=== PATIENT | male | born 1940 | race Two or more races ===

== ENCOUNTER 2016-11-21 08:37 | Observation (INO) | payer OTHER ==
[2016-11-21 08:44] VITALS: BMI 37.1
--- NOTE | 2016-11-21 09:40 | PDOC ---
History of Present Illness - General History Source: Patient Exam Limitations: No Limitations <Jerry Horn - Last Filed: 11/21/16 11:04> - General History Source: Patient, Old Records Exam Limitations: No Limitations - History of Present Illness Initial Comments: 11/21/16 10:03 The patient is a 76 year old male presenting with his family, with a significant past medical history of HTN, HLD, NM, CAD chronic hep C, CHF EF of 40-45% and small bowel obstruction, who presents to the emergency department with rectal bleeding onset 2 days ago. He describes his rectal bleeding as bright red mixed with stool. He notes that he has had multiple episodes throughout the last couple of days. He denies any abdominal pain. The patient was seen in 2014 for the same complication and was referred to a GI to get a colonoscopy that showed diverticula. He states that he takes Aspirin 81 mg and Plavix 75 mg but has not taken his medication today. The patient denies chest pain, shortness of breath, headache and dizziness. Denies fever, chills, nausea, vomit, diarrhea and constipation. Denies dysuria, frequency, urgency and hematuria. Allergies: Sulfa Past surgical history: CABG x 3, small bowel obstruction Social history: No alcohol, tobacco or drug use reported <Ralf Silverman - Last Filed: 11/21/16 12:23> - General Chief Complaint: Rectal Bleed Stated Complaint: RECTAL BLEED Time Seen by Provider: 11/21/16 09:17 Past History - Past Medical History Anemia: No Asthma: No Cancer: No Cardiac Disorders: Yes (cardiac cath and stent placement at [facility] ) CVA: No COPD: No Dementia: No Diabetes: No GI Disorders: No Disorders: No HTN: Yes Hypercholesterolemia: Yes (hperlipedemia) Liver Disease: No Seizures: No Thyroid Disease: No - Surgical History Abdominal Surgery: Yes (sbo) Appendectomy: No Cardiac Surgery: Yes (cabg) Cholecystectomy: No Lung Surgery: No Neurologic Surgery: No Orthopedic Surgery: No - Psycho/Social/Smoking Cessation Hx Anxiety: No Suicidal Ideation: No Smoking Status: Yes Smoking History: Never smoked Have you smoked in the past 12 months: No Number of Cigarettes Smoked Daily: 0 If you are a former smoker, when did you quit?: 2013 Cigars Per Day: 0 Information on smoking cessation initiated: No Hx Alcohol Use: No Drug/Substance Use Hx: No Substance Use Type: None Hx Substance Use Treatment: No <Jerry Horn - Last Filed: 11/21/16 11:04> <Ralf Silverman - Last Filed: 11/21/16 12:23> - Past Medical History Allergies/Adverse Reactions: Allergies Allergy/AdvReac Type Severity Reaction Status Date / Time Sulfa (Sulfonamide Allergy Verified 11/21/16 08:41 Antibiotics) [Sulfa(Sulfonamide Antibiotics)] Home Medications: Ambulatory Orders Aspirin Coated [Ecotrin -] 81 mg PO DAILY 06/08/12 Clopidogrel Bisulfate [Plavix -] 75 mg PO DAILY 06/08/12 Furosemide [Lasix -] 40 mg PO DAILY 06/08/12 Simvastatin [Zocor -] 20 mg PO DAILY 06/08/12 Isosorbide Mononitrate 120 mg PO DAILY 02/02/13 Metoprolol Succinate [Toprol XL] 200 mg PO DAILY 02/02/13 Trazodone HCl 50 mg PO HS 02/02/13 Valsartan [Diovan] 320 mg PO DAILY 02/02/13 Spironolactone 25 mg PO DAILY 11/21/16 Review of Systems - Review of Systems Able to Perform ROS?: Yes Comments:: 11/21/16 10:03 GENERAL/CONSTITUTIONAL: No fever or chills. No weakness. HEAD, EYES, EARS, NOSE AND THROAT: No change in vision. No ear pain or discharge. No sore throat. CARDIOVASCULAR: No chest pain or shortness of breath RESPIRATORY: No cough, wheezing, or hemoptysis. GASTROINTESTINAL: (+) Rectal bleeding. No nausea, vomiting, diarrhea or constipation. GENITOURINARY: No dysuria, frequency, or change in urination. MUSCULOSKELETAL: No joint or muscle swelling or pain. No neck or back pain. SKIN: No rash NEUROLOGIC: No headache, vertigo, loss of consciousness, or change in strength/ sensation. ENDOCRINE: No increased thirst. No abnormal weight change HEMATOLOGIC/LYMPHATIC: No anemia, easy bleeding, or history of blood clots. ALLERGIC/IMMUNOLOGIC: No hives or skin allergy. <Ralf Silverman - Last Filed: 11/21/16 12:23> *Physical Exam - Vital Signs Last Vital Signs Temp Pulse Resp BP Pulse Ox 98 F 72 18 136/79 100 11/21/16 08:42 11/21/16 08:42 11/21/16 08:42 11/21/16 08:42 11/21/16 08:42 <Jerry Horn - Last Filed: 11/21/16 11:04> - Vital Signs Last Vital Signs Temp Pulse Resp BP Pulse Ox 98 F 72 18 136/79 100 11/21/16 08:42 11/21/16 08:42 11/21/16 08:42 11/21/16 08:42 11/21/16 08:42 - Physical Exam Comments: 11/21/16 10:03 GENERAL: (+) Obese. Awake, alert, and fully oriented, in no acute distress HEAD: No signs of trauma, normocephalic, atraumatic EYES: PERRLA, EOMI, sclera anicteric, conjunctiva clear ENT: Auricles normal inspection, hearing grossly normal, nares patent, oropharynx clear without exudates. Moist mucosa NECK: Normal ROM, supple, no lymphadenopathy, JVD, or masses LUNGS: No distress, speaks full sentences, clear to auscultation bilaterally HEART: Regular rate and rhythm, normal S1 and S2, no murmurs, rubs or gallops, peripheral pulses normal and equal bilaterally. ABDOMEN: Soft, nontender, normoactive bowel sounds. No guarding, no rebound. No masses EXTREMITIES: Normal inspection, Normal range of motion, no edema. No clubbing or cyanosis. NEUROLOGICAL: Cranial nerves II through XII grossly intact. Normal speech, normal gait, no focal sensorimotor deficits SKIN: Warm, Dry, normal turgor, no rashes or lesions noted. RECTAL EXAM: (+) Blood in rectum. No hemrrhoids or tares noted. <Ralf Silverman - Last Filed: 11/21/16 12:23> Heart Score/ECG Review #1 ECG reviewed & interpreted by me at: 09:45 11/21/16 10:16 NSR 69, RBBB, Q wave III, poor R wave progression, RVH, no std/denise, QTC 460 msec <Jerry Horn - Last Filed: 11/21/16 11:04> ED Treatment Course - LABORATORY CBC & Chemistry Diagram: 11/21/16 09:39 11/21/16 09:39 <JustinaJerry - Last Filed: 11/21/16 11:04> - LABORATORY CBC & Chemistry Diagram: 11/21/16 09:39 11/21/16 09:39 - ADDITIONAL ORDERS Additional order review: Laboratory Results 11/21/16 09:39 Stool Occult Blood Positive - RADIOLOGY Radiograph Interpretation: 11/21/16 10:14 Chest X-Ray Reviewed by: Dr. Omkar Neves Impression: No evidence of active pulmonary disease. <Ralf Silverman - Last Filed: 11/21/16 12:23> Medical Decision Making - Medical Decision Making 11/21/16 09:37 A portion of this note was documented by scribe services under my direction. I have reviewed the details of the note, within reason, and agree with the documentation with the following case summary and management plan written by me. Patient treated in the ED. Nursing notes are reviewed and incorporated into the medical decision-making. Vital signs reviewed. Peripheral IV access obtained by the nurse, laboratory studies are drawn and sent, reviewed and interpreted by myself. Vital Signs Temp Pulse Resp BP Pulse Ox 98 F 72 18 136/79 100 11/21/16 08:42 11/21/16 08:42 11/21/16 08:42 11/21/16 08:42 11/21/16 08:42 76-year-old male with past medical history of hypertension, coronary disease, NM , chronic hep C, hyperlipidemia, CHF with EF of 40-45%, history of diverticula confirmed with an colonoscopy report at the [facility] in 2014 presents with red blood per rectum. Patient's taken baby aspirin and Plavix. 2 days ago, noticed that he was having approximately 2 episodes of red blood painless bleeding. Denies any lightheadedness or chest pain. However, continue have persistent bleeding. Did not take his medications today. Came into the ED for further evaluation. Patient's abdomen is nontender and the patient rectal exam demonstrates no Hemorrhoids. I suspect that this is likely diverticular bleed. We'll obtain a CBC to check for hematocrit and the patient should be considered for admission for potentially sigmoidoscopy or colonoscopy for diverticular bleeding given multiple medical problems. 11/21/16 11:04 CBC, BMP 11/21/16 09:39 11/21/16 09:39 CMP Sodium 141 mmol/L (136-145) 11/21/16 09:39 Potassium 4.7 mmol/L (3.5-5.1) D 11/21/16 09:39 Chloride 102 mmol/L (98-107) 11/21/16 09:39 Carbon Dioxide 34 mmol/L (21-32) H 11/21/16 09:39 Anion Gap 5 (8-16) L 11/21/16 09:39 BUN 31 mg/dL (7-18) H D 11/21/16 09:39 Creatinine 0.8 mg/dL (0.7-1.3) 11/21/16 09:39 Creat Clearance w eGFR > 60 (>60) 11/21/16 09:39 Random Glucose 93 mg/dL (74-106) 11/21/16 09:39 Calcium 8.7 mg/dL (8.5-10.1) 11/21/16 09:39 Total Bilirubin 0.5 mg/dL (0.2-1.0) D 11/21/16 09:39 AST 73 U/L (15-37) H D 11/21/16 09:39 ALT 60 U/L (12-78) D 11/21/16 09:39 Alkaline Phosphatase 120 U/L (45-117) H 11/21/16 09:39 Creatine Kinase 110 IU/L (39-308) 11/21/16 09:39 Troponin I < 0.02 ng/ml (0.00-0.05) 11/21/16 09:39 Total Protein 7.9 g/dl (6.4-8.2) 11/21/16 09:39 Albumin 3.1 g/dl (3.4-5.0) L 11/21/16 09:39 INR, PTT INR 1.03 (0.82-1.09) 11/21/16 09:39 Stool occult positive. Pt remains stable. Case discussed with Dr. Anderson. She accepts patient for admission for diverticular bleed. Requests GI Dr. Garcia. Case discussed in detail with admitting physician including history, physical exam and ancillary studies. Admitting physician has assumed care for the patient, will follow all pending diagnostics and will complete the evaluation and treatment. <Jerry Horn - Last Filed: 11/21/16 11:04> - Medical Decision Making 11/21/16 12:22 Dr. Macario was consulted regarding the patient at 12:20pm [phone] <Ralf Silverman - Last Filed: 11/21/16 12:23> *DC/Admit/Observation/Transfer - Discharge Dispostion Admit: Yes <Jerry Horn - Last Filed: 11/21/16 11:04> - Attestations Scribe Attestion: 11/21/16 10:04 Documentation prepared by Ralf Silverman, acting as medical record librarians teacher for Jerry Horn MD <Ralf Silverman - Last Filed: 11/21/16 12:23> Diagnosis at time of Disposition: Lower gastrointestinal hemorrhage
[2016-11-21 10:02] LABS: BASOPHIL 0.3 % (0-2.0); EOSINOPHIL 1.5 % (0-4.5); MCH 31.8 pg (25.7-33.7); MCHC 32.6 g/dl (32.0-35.9); MEAN CELL VOLUME 97.5 fl (80-96); MEAN PLT VOLUME 9.5 fl (7.5-11.1); NEUTROPHILS 58.2 % (42.8-82.8); PLATELET COUNT 183 K/MM3 (134-434); RDW 14.2 % (11.9-15.9)
[2016-11-21 10:12] LABS: ALBUMIN 3.1 g/dl (3.4-5.0); ALK PHOS 120 U/L (45-117); ANION GAP 5 (8-16); BILIRUBIN,TOTAL 0.5 mg/dL (0.2-1.0); CALCIUM 8.7 mg/dL (8.5-10.1); CO2 34 mmol/L (21-32); COCKROFT - GAULT 117.72; CREATININE 0.8 mg/dL (0.7-1.3); GLUCOSE,RANDOM 93 mg/dL (74-106); SGPT/ALT 60 U/L (12-78); TOT PROT 7.9 g/dl (6.4-8.2); TROPONIN I < 0.02 ng/ml (0.00-0.05)
[2016-11-21 10:15] LABS: INR 1.03 (0.82-1.09); PROTHROMBIN TIME (PATIENT) 11.3 SEC (9.98-11.88)
[2016-11-21 10:19] LABS: SGOT/AST 73 U/L (15-37)
--- NOTE | 2016-11-21 10:26 | EKG ---
Test Reason : Blood Pressure : / mmHG Vent. Rate : 069 BPM Atrial Rate : 070 BPM P-R Int : 188 ms QRS Dur : 164 ms QT Int : 430 ms P-R-T Axes : -02 242 052 degrees QTc Int : 460 ms NORMAL SINUS RHYTHM WITH PREMATURE VENTRICULAR OR ABERRANTLY CONDUCTED COMPLEXES RIGHT BUNDLE BRANCH BLOCK INFERIOR INFARCT (CITED ON OR BEFORE 28-SEP-2010) ANTEROLATERAL INFARCT (CITED ON OR BEFORE 28-SEP-2010) ABNORMAL ECG Confirmed by MD NONA, ZHEN ([id number]) on 11/21/2016 10:26:10 AM Referred By: Confirmed By:ZHEN CASTELLANO MD
--- NOTE | 2016-11-21 15:21 | CON.GI ---
Consult Consult Specialty:: GI Referred by:: Dr. 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 Mr. Ruth described the bleeding as bright red, starting at 11:45 monday morning. It was mixed in with his stool. This happened twice on monday. This again occurred 5am Monday morning and there was a clot passed as well as well as dark stool. His last bloodly BM was this morning and was bright red. He had a bleed in 2014 that was suspected to be diverticular in nature He alluded to undergoing EGD and colonoscopy at that time. This was performed by his macerator operator Dr. Abelardo Garcia [phone]. He brought the colonoscopy report that was alluded to in the ER note however Mr. Ruth explains to me that the person who took him to [facility] took it back with her. Diverticulosis was described. There was no associated abdominal pain, nausea, vomiting, dysphagia, odynophagia, diarrhea, fevers/chills. He has been maintained on Aspirin and Plavix since 2013 when he underwent placement of a drug eluting stent of the circumflex artery. He had a CABG in 2001 prior to [place]. The report he provided from his stent placement advised [id number] indefinitely and Plavix for 1 year or longer as indicated. There has been no active bleeding in the ER - Past Medical History Cardio/Vascular: Yes: CAD, CHF, HTN, Hyperlipdemia Hepatobiliary: Yes: Hepatitis B (describes having a liver biopsy in the past) Additional Medical History: ? Seizure d/o - Past Surgical History Past Surgical History: Yes: CABG, Upper Endoscopy (years ago. results n/a). No : Colonoscopy Additional Surgical History: ? 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 Place of : Other ([place], came to [place] 21) History of Recent Travel: No Home Medications - Allergies Allergies/Adverse Reactions: Allergies Allergy/AdvReac Type Severity Reaction Status Date / Time Sulfa (Sulfonamide Allergy Verified 11/21/16 08:41 Antibiotics) [Sulfa(Sulfonamide Antibiotics)] - Home Medications Home Medications: Ambulatory Orders Aspirin Coated [Ecotrin -] 81 mg PO DAILY 06/08/12 Clopidogrel Bisulfate [Plavix -] 75 mg PO DAILY 06/08/12 Furosemide [Lasix -] 40 mg PO DAILY 06/08/12 Simvastatin [Zocor -] 20 mg PO DAILY 06/08/12 Isosorbide Mononitrate 120 mg PO DAILY 02/02/13 Metoprolol Succinate [Toprol XL] 200 mg PO DAILY 02/02/13 Trazodone HCl 50 mg PO HS 02/02/13 Valsartan [Diovan] 320 mg PO DAILY 02/02/13 Spironolactone 25 mg PO DAILY 11/21/16 Family Disease History - Family Disease History Family Disease History: Other: Father ( natural causes), Mother ( natural causes), Brother (2 brothers, healthy), Sister (1 sister, healthy) Other Family History: No children. No family history of colorectal cancer or other GI malignancy Review of Systems - Review of Systems Constitutional: denies: Diaphoresis, Fever Cardiovascular: denies: Chest Pain Respiratory: denies: SOB Gastrointestinal: reports: Rectal Bleeding. denies: Constipation, Diarrhea, Melena, Vomiting, Vomiting Blood Physical Exam-GI Vital Signs: Vital Signs Temperature 98 F 11/21/16 08:42 Pulse Rate 78 11/21/16 12:42 Respiratory Rate 22 11/21/16 12:42 Blood Pressure 105/63 11/21/16 12:42 O2 Sat by Pulse Oximetry (%) 96 11/21/16 12:42 Constitutional: Yes: Calm Eyes: No: Sclera Icterus Cardiovascular: Yes: Regular Rate and Rhythm. No: Murmur Respiratory: Yes: CTA Bilaterally Gastrointestinal Inspection: Yes: Other (? growth at umbilicus (he says noticing this only for a few days)). No: Distention ...Auscultate: Yes: Normoactive Bowel Sounds ...Palpate: No: Hepatomegaly, Splenomegaly, Tenderness ...Percussion: No: Tympanitic ...Rectal Exam: Yes: Other (No external lesions, no masses, scant red blood mixed with stool) Edema: Yes Edema: LLE: Trace, RLE: Trace Neurological: Yes: Alert, Oriented Labs: INR, PTT INR 1.03 (0.82-1.09) 11/21/16 09:39 Problem List - Problems (1) Lower gastrointestinal hemorrhage Assessment/Plan: By history, diverticular hemorrhage would need to be considered in differential with his bleeding being potentiated by his continued dual antiplatelet therapy. This is his second episode of GI bleeding on ASA/Plavix. It is unclear, however, consideration could be given in the setting of recurrent GI bleeding to have Plavix discontinued however I would defer to cardiology regarding this. Would monitor for now. If continued bleeding persists, then further work-up would need to be considered including repeat EGD/Colonoscopy, surgical evaluation and if profuse bleeding CTA. We discussed potential risks of the procedure like but not limited to bleeding, perforation requiring surgery to repair, infection and sedation medication effects all of which could be potentially life threatening. Advised admitting to a monitored setting for now (if worsening bleeding transfer to ICU), clear liquids, repeat CBC 8pm tonight and in AM. I put a call out to Mr. Ruth's macerator operator Dr. Garcia to discuss his case and previous GI bleed episode further Code(s): K92.2 - GASTROINTESTINAL HEMORRHAGE, UNSPECIFIED
--- NOTE | 2016-11-21 15:42 | CON.CARD ---
Consult Consult Specialty:: Cardiology Referred by:: Bety Anderson MD Reason for Consultation:: Pre-procedural cardiovascular evaluation - History of Present Illness Chief Complaint: Rectal bleeding History of Present Illness: The patient is a 76 year old male with significant past medical history of HTN, HLD, [place], CAD s/p CABGx3 in 2001, ELÍAS LCx 2013, chronic hep C, systolic dysfunction EF of 40-45%, diverticulosis and small bowel obstruction, presented to the emergency department with rectal bleeding for 2 days. He describes his rectal bleeding as bright red mixed with stool. He notes that he has had multiple episodes throughout the last couple of days. He denies any abdominal pain. The patient was seen in 2014 for the same complication and was referred to a GI to get a colonoscopy that showed diverticula. He states that he takes Aspirin 81 mg and Plavix 75 mg but has not taken his medication today. The patient denies chest pain, shortness of breath, dizziness or true syncope, orthopnea, PND or LE edema. Allergies: Sulfa Past surgical history: CABG x 3, small bowel obstruction Social history: No alcohol, tobacco or drug use reported - History Source History Provided By: Medical Record Limitations to Obtaining History: Language Barrier - Past Medical History Cardio/Vascular: Yes: CAD, CHF, HTN, Hyperlipdemia - Past Surgical History Past Surgical History: Yes: CABG, Upper Endoscopy (years ago. results n/a). No : Colonoscopy - Alcohol/Substance Use Hx Alcohol Use: No - Smoking History Smoking history: Never smoked Have you smoked in the past 12 months: No Aproximately how many cigarettes per day: 0 If you are a former smoker, when did you quit?: 2013 Home Medications - Allergies Allergies/Adverse Reactions: Allergies Allergy/AdvReac Type Severity Reaction Status Date / Time Sulfa (Sulfonamide Allergy Verified 11/21/16 08:41 Antibiotics) [Sulfa(Sulfonamide Antibiotics)] - Home Medications Home Medications: Ambulatory Orders Aspirin Coated [Ecotrin -] 81 mg PO DAILY 06/08/12 Clopidogrel Bisulfate [Plavix -] 75 mg PO DAILY 06/08/12 Furosemide [Lasix -] 40 mg PO DAILY 06/08/12 Simvastatin [Zocor -] 20 mg PO DAILY 06/08/12 Isosorbide Mononitrate 120 mg PO DAILY 02/02/13 Metoprolol Succinate [Toprol XL] 200 mg PO DAILY 02/02/13 Trazodone HCl 50 mg PO HS 02/02/13 Valsartan [Diovan] 320 mg PO DAILY 02/02/13 Spironolactone 25 mg PO DAILY 11/21/16 Vital Signs: Vital Signs Temperature 98 F 11/21/16 08:42 Pulse Rate 78 11/21/16 12:42 Respiratory Rate 22 11/21/16 12:42 Blood Pressure 105/63 11/21/16 12:42 O2 Sat by Pulse Oximetry (%) 96 11/21/16 12:42 - Other Data Labs, Other Data: INR, PTT INR 1.03 (0.82-1.09) 11/21/16 09:39 NSR @ 69 RBBB, PVC Ejection Fraction %: LVEF > or = 40 % Imaging - Results Chest X-ray: Report Reviewed (NAD) Problem List - Problems (1) Lower gastrointestinal hemorrhage Code(s): K92.2 - GASTROINTESTINAL HEMORRHAGE, UNSPECIFIED (2) CAD (coronary artery disease) Code(s): I25.10 - ATHSCL HEART DISEASE OF [place] CORONARY ARTERY W/O ANG PCTRS Qualifiers: Coronary Disease-Associated Artery/Lesion type: [place] artery [place] vs. transplanted heart: [place] heart Associated angina: without angina Qualified Code(s): I25.10 - Atherosclerotic heart disease of [place] coronary artery without angina pectoris (3) HTN (hypertension) Code(s): I10 - ESSENTIAL (PRIMARY) HYPERTENSION Qualifiers: Hypertension type: essential hypertension Qualified Code(s): I10 - Essential (primary) hypertension (4) Status post coronary artery stent placement Code(s): Z95.5 - PRESENCE OF CORONARY ANGIOPLASTY IMPLANT AND GRAFT (5) Status post coronary artery bypass graft Code(s): Z95.1 - PRESENCE OF AORTOCORONARY BYPASS GRAFT (6) Hyperlipidemia Code(s): E78.5 - HYPERLIPIDEMIA, UNSPECIFIED Qualifiers: Hyperlipidemia type: pure hypercholesterolemia Qualified Code(s): E78.00 - Pure hypercholesterolemia, unspecified; E78.0 - Pure hypercholesterolemia (7) Diastolic dysfunction without heart failure Code(s): I51.9 - HEART DISEASE, UNSPECIFIED (8) Pre-procedural cardiovascular examination Code(s): Z01.810 - ENCOUNTER FOR PREPROCEDURAL CARDIOVASCULAR EXAMINATION Assessment/Plan 1. Pre-procedural cardiovascular evaluation 2. Hematochezia with underlying h/o diverticulosis 3. CAD s/p CABG, ELÍAS, angina pectoris 4. HTN/HCVD 5. Hyperlipidemia 6. Diastolic dysfunction P:1. Hold ASA and Plavix pending hemostasis, then resume single antiplatelet agent. Continue Toprol XL, Diovan, Aldactone, Imdur, Lasix and Zocor 20 qhs as hemodynamics tolerate 2. Monitor Hgb and transfuse as needed 3. May proceed with endoscopy if clinically warranted from cardiovascular standpoint without further imaging given absence of sxs of acute coronary syndrome, decompensated CHF or malignant arrhythmia 4. Thank you for consultative opportunity, will follow-up with Dr. Marr [phone] for cardiology f/u upon d/c.
--- NOTE | 2016-11-21 18:15 | HP ---
Admitting History and Physical - Primary Care Physician PCP: Bety Anderson - Admission History of Present Illness: 76 year old male presenting with his family, with a significant past medical history of HTN, HLD, NV, CAD chronic hep C, CHF EF of 40-45% and small bowel obstruction, who presents to the emergency department with rectal bleeding onset 2 days ago. He describes his rectal bleeding as bright red mixed with stool. He notes that he has had multiple episodes throughout the last couple of days. He denies any abdominal pain. The patient was seen in 2015 for the same complication and was referred to a GI to get a colonoscopy that showed diverticula. He states that he takes Aspirin 81 mg and Plavix 75 mg but has not taken his medication today. - Past Medical History Cardiovascular: Yes: CAD, CHF, HTN, Hyperlipdemia Hepatobiliary: Yes: Hepatitis B (describes having a liver biopsy in the past) - Past Surgical History Past Surgical History: Yes: CABG, Upper Endoscopy (years ago. results n/a). 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 History of Recent Travel: No Home Medications - Allergies Allergies/Adverse Reactions: Allergies Allergy/AdvReac Type Severity Reaction Status Date / Time Sulfa (Sulfonamide Allergy Verified 11/21/16 08:41 Antibiotics) [Sulfa(Sulfonamide Antibiotics)] - Home Medications Home Medications: Ambulatory Orders Aspirin Coated [Ecotrin -] 81 mg PO DAILY 06/08/12 Furosemide [Lasix -] 40 mg PO DAILY 06/08/12 Simvastatin [Zocor -] 20 mg PO DAILY 06/08/12 Isosorbide Mononitrate 120 mg PO DAILY 02/02/13 Metoprolol Succinate [Toprol XL -] 200 mg PO DAILY 02/02/13 Trazodone HCl 50 mg PO HS 02/02/13 Valsartan [Diovan] 320 mg PO DAILY 02/02/13 Spironolactone 25 mg PO DAILY 11/21/16 Family Disease History - Family Disease History Family Disease History: Other: Father ( natural causes), Mother ( natural causes), Brother (2 brothers, healthy), Sister (1 sister, healthy) Other Family History: No children. No family history of colorectal cancer or other GI malignancy Physical Examination Vital Signs: Vital Signs Temperature 98.2 F 11/21/16 11:11 Pulse Rate 80 11/21/16 15:46 Respiratory Rate 20 11/21/16 15:46 Blood Pressure 109/57 11/21/16 15:46 O2 Sat by Pulse Oximetry (%) 96 11/21/16 15:46 Constitutional: Yes: No Distress HENT: Yes: Atraumatic Neck: Yes: Supple Cardiovascular: Yes: Regular Rate and Rhythm Respiratory: Yes: CTA Bilaterally Gastrointestinal: Yes: Normal Bowel Sounds Extremities: Yes: WNL Neurological: Yes: Alert, Oriented Imaging - Results Chest X-ray: Report Reviewed EKG: Report Reviewed Problem List - Problems (1) Hyperlipidemia Assessment/Plan: on meds hold for now due to gi bleed? Code(s): E78.5 - HYPERLIPIDEMIA, UNSPECIFIED Qualifiers: Hyperlipidemia type: pure hypercholesterolemia Qualified Code(s): E78.00 - Pure hypercholesterolemia, unspecified; E78.0 - Pure hypercholesterolemia (2) Lower gastrointestinal hemorrhage Assessment/Plan: will monitor on clear liquid diet per gi hold most of the po meds hold asa and plavix Code(s): K92.2 - GASTROINTESTINAL HEMORRHAGE, UNSPECIFIED (3) Status post coronary artery stent placement Assessment/Plan: on meds stable Code(s): Z95.5 - PRESENCE OF CORONARY ANGIOPLASTY IMPLANT AND GRAFT (4) CAD (coronary artery disease) Code(s): I25.10 - ATHSCL HEART DISEASE OF [place] CORONARY ARTERY W/O ANG PCTRS Qualifiers: Coronary Disease-Associated Artery/Lesion type: [place] artery [place] vs. transplanted heart: [place] heart Associated angina: without angina Qualified Code(s): I25.10 - Atherosclerotic heart disease of [place] coronary artery without angina pectoris Assessment/Plan Laboratory Tests 11/21/16 11/21/16 11/21/16 09:39 09:39 09:39 WBC 7.0 D RBC 3.69 L Hgb 11.7 Hct 35.9 MCV 97.5 H MCHC 32.6 RDW 14.2 Plt Count 183 D MPV 9.5 Neutrophils % 58.2 Lymphocytes % 31.2 Monocytes % 8.8 Eosinophils % 1.5 Basophils % 0.3 INR 1.03 PTT (Actin FS) 33.0 Sodium Potassium Chloride Carbon Dioxide Anion Gap BUN Creatinine Creat Clearance w eGFR Random Glucose Calcium Total Bilirubin AST ALT Alkaline Phosphatase Creatine Kinase Troponin I Total Protein Albumin Stool Occult Blood Positive Anti-A Titer Blood Type Antibody Screen Spec Expiration Date 11/21/16 11/21/16 11/21/16 09:39 09:39 09:39 WBC RBC Hgb Hct MCV MCHC RDW Plt Count MPV Neutrophils % Lymphocytes % Monocytes % Eosinophils % Basophils % INR PTT (Actin FS) Sodium 141 Potassium 4.7 D Chloride 102 Carbon Dioxide 34 H Anion Gap 5 L BUN 31 H D Creatinine 0.8 Creat Clearance w eGFR > 60 Random Glucose 93 Calcium 8.7 Total Bilirubin 0.5 D AST 73 H D ALT 60 D Alkaline Phosphatase 120 H Creatine Kinase 110 Troponin I < 0.02 Total Protein 7.9 Albumin 3.1 L Stool Occult Blood Anti-A Titer Cancelled Blood Type Cancelled Antibody Screen Cancelled Spec Expiration Date Cancelled Active Medications Generic Name Dose Route Start Last Admin Trade Name Litoq PRN Reason Stop Dose Admin Aspirin 81 mg 11/22/16 13:00 11/22/16 13:53 Ecotrin - PO 81 mg DAILY ZAYNAB Administration Atorvastatin Calcium 10 mg 11/21/16 22:00 11/21/16 21:59 Lipitor - PO 10 mg HS ZAYNAB Administration Furosemide 40 mg 11/22/16 10:00 11/22/16 09:05 Lasix - PO 40 mg DAILY ZAYNAB Administration Metoprolol Succinate 200 mg 11/22/16 10:00 11/22/16 09:05 Toprol Xl - PO 200 mg DAILY ZAYNAB Administration Pantoprazole Sodium 40 mg 11/22/16 13:00 11/22/16 13:53 Protonix - PO 40 mg DAILY ZAYNAB Administration Polyethylene Glycol 17 gm 11/23/16 10:00 Miralax (For Daily Use) - PO DAILY ZAYNAB
[2016-11-21 19:57] LABS: MCH 31.6 pg (25.7-33.7); MCHC 32.5 g/dl (32.0-35.9); MEAN CELL VOLUME 97.2 fl (80-96); MEAN PLT VOLUME 9.2 fl (7.5-11.1); PLATELET COUNT 171 K/MM3 (134-434); RDW 14.2 % (11.9-15.9); WHITE BLOOD COUNT 6.5 K/mm3 (4.0-10.0)
[2016-11-21] MEDS ORDERED: ATORVASTATIN CA 10 MG TABLET (FP) PO SCH (22:00)
[2016-11-22 07:50] LABS: MCH 32.4 pg (25.7-33.7); MCHC 33.3 g/dl (32.0-35.9); MEAN CELL VOLUME 97.2 fl (80-96); MEAN PLT VOLUME 9.1 fl (7.5-11.1); PLATELET COUNT 150 K/MM3 (134-434); RDW 14.3 % (11.9-15.9); WHITE BLOOD COUNT 4.7 K/mm3 (4.0-10.0)
[2016-11-22] MEDS ORDERED: PATIENT'S OWN MEDICATION (NON-FORMULARY) (Simvastatin 20 MG) PO SCH (10:00)
[2016-11-22] MEDS ORDERED: FUROSEMIDE 40 MG TABLET (FP) PO SCH (10:00)
[2016-11-22] MEDS ORDERED: METOPROLOL SUCCINATE 100 MG TAB.SR.24H (FP) PO SCH (10:00)
--- NOTE | 2016-11-22 12:54 | PN ---
GI Progress Note Subjective: No overt retal bleeding, melen or BM since admission No abdominal pain Mr. Ruth had a copy of the colonoscopy procedure report from Colonoscopy performed by Dr. Garcia 06/23/15: An adequate prep was described along with severe sigmoid diverticulosis. biopsies were taken from a normal appearing rectum and a 3 year follow-up exam ws advised given the adequate bowel prep. - Objective Vital Signs: Vital Signs Temperature 98.1 F 11/22/16 08:00 Pulse Rate 82 11/22/16 08:00 Respiratory Rate 18 11/22/16 10:00 Blood Pressure 125/68 11/22/16 08:00 O2 Sat by Pulse Oximetry (%) 96 11/22/16 10:00 Constitutional: Calm Eyes: No: Sclera Icterus Cardiovascular: Yes: Regular Rate and Rhythm Respiratory: Yes: CTA Bilaterally Gastrointestinal Inspection: No: Distention ...Auscultate: Yes: Normoactive Bowel Sounds ...Palpate: No: Tenderness Edema: No Labs: CBC, BMP 11/22/16 05:40 INR, PTT INR 1.03 (0.82-1.09) 11/21/16 09:39 Problem List - Problems (1) Lower gastrointestinal hemorrhage Assessment/Plan: No further rectal bleeding and stable H/H Would resume asa and if cardiology wants him back on dual antiplatelet agents resume plavix Have not received call back from Mr. Ruth's [employer] Technician Dr. Garcia as of yet but Mr. Ruth knows to follow-up with him. He said he called his office already Advance diet PPI Added miralax 17g once daily If no further bleeding, and stable H/H, no objection to D/C home Code(s): K92.2 - GASTROINTESTINAL HEMORRHAGE, UNSPECIFIED
[2016-11-22] MEDS ORDERED: ASPIRIN COATED 81 MG TABLET.EC PO SCH (13:00)
[2016-11-22] MEDS ORDERED: PANTOPRAZOLE 40 MG TABLET (FP) PO SCH (13:00)
[2016-11-22 13:20] LABS: MEAN CELL VOLUME 97.2 fl (80-96); MEAN PLT VOLUME 8.8 fl (7.5-11.1); PLATELET COUNT 175 K/MM3 (134-434); RDW 14.1 % (11.9-15.9); WHITE BLOOD COUNT 6.6 K/mm3 (4.0-10.0)
[2016-11-22 13:38] LABS: CALCIUM 9.1 mg/dL (8.5-10.1)
[2016-11-22 13:39] LABS: COCKROFT - GAULT 117.72; CREATININE 0.8 mg/dL (0.7-1.3)
--- NOTE | 2016-11-22 13:51 | PN ---
Progress Note, Physician Chief Complaint: Events noted No further GI bleeding noted History of Present Illness: Patient was seen and examined. Awake and alert. Chart was reviewed Denies chest pain, SOB or palpitations GI input noted and prior colonoscopy report also noted - Current Medication List Current Medications: Active Medications Aspirin (Ecotrin -) 81 mg PO DAILY [facility] Atorvastatin Calcium (Lipitor -) 10 mg PO HS [facility] Last Admin: 11/21/16 21:59 Dose: 10 mg Furosemide (Lasix -) 40 mg PO DAILY [facility] Last Admin: 11/22/16 09:05 Dose: 40 mg Metoprolol Succinate (Toprol Xl -) 200 mg PO DAILY [facility] Last Admin: 11/22/16 09:05 Dose: 200 mg Pantoprazole Sodium (Protonix -) 40 mg PO DAILY [facility] Polyethylene Glycol (Miralax (For Daily Use) -) 17 gm PO DAILY [facility] - Objective Vital Signs: Vital Signs Temperature 98.1 F 11/22/16 08:00 Pulse Rate 82 11/22/16 08:00 Respiratory Rate 18 11/22/16 10:00 Blood Pressure 125/68 11/22/16 08:00 O2 Sat by Pulse Oximetry (%) 96 11/22/16 10:00 Neck: Yes: Supple Cardiovascular: Yes: Regular Rate and Rhythm, S1, S2 Respiratory: Yes: CTA Bilaterally Gastrointestinal: Yes: Normal Bowel Sounds, Soft, Abdomen, Obese. No: Tenderness Edema: No Additional Findings/Remarks: - Review of Systems Constitutional: denies: Chills, Fever Cardiovascular: denies: Shortness of Breath. denies: Chest Pain, Palpitations Respiratory: denies: SOB, SOB on Exertion - improved. denies: Cough, Hemoptysis , Orthopnea, PND, Wheezing Gastrointestinal: denies: Abdominal Pain, Constipation, Diarrhea, (+) Melena, Rectal Bleeding Genitourinary: denies: Dysuria Musculoskeletal: denies: Joint Pain Neurological: denies: Unsteady Gait, Weakness. denies: Dizziness, Headache, Numbness, Seizure, Syncope Labs: CBC, BMP 11/22/16 12:55 11/22/16 12:55 INR, PTT INR 1.03 (0.82-1.09) 11/21/16 09:39 Problem List - Problems (1) Diastolic dysfunction without heart failure Code(s): I51.9 - HEART DISEASE, UNSPECIFIED (2) Hyperlipidemia Code(s): E78.5 - HYPERLIPIDEMIA, UNSPECIFIED Qualifiers: Hyperlipidemia type: pure hypercholesterolemia Qualified Code(s): E78.00 - Pure hypercholesterolemia, unspecified; E78.0 - Pure hypercholesterolemia (3) Lower gastrointestinal hemorrhage Code(s): K92.2 - GASTROINTESTINAL HEMORRHAGE, UNSPECIFIED (4) Status post coronary artery bypass graft Code(s): Z95.1 - PRESENCE OF AORTOCORONARY BYPASS GRAFT (5) Status post coronary artery stent placement Code(s): Z95.5 - PRESENCE OF CORONARY ANGIOPLASTY IMPLANT AND GRAFT (6) CAD (coronary artery disease) Code(s): I25.10 - ATHSCL HEART DISEASE OF [place] CORONARY ARTERY W/O ANG PCTRS Qualifiers: Coronary Disease-Associated Artery/Lesion type: [place] artery [place] vs. transplanted heart: [place] heart Associated angina: without angina Qualified Code(s): I25.10 - Atherosclerotic heart disease of [place] coronary artery without angina pectoris (7) HTN (hypertension) Code(s): I10 - ESSENTIAL (PRIMARY) HYPERTENSION Qualifiers: Hypertension type: essential hypertension Qualified Code(s): I10 - Essential (primary) hypertension Assessment/Plan 1. Hematochezia with underlying h/o diverticulosis - currently hemodynamically stable 2. CAD s/p CABG, ELÍAS, angina pectoris 3. HTN/HCVD 4. Hyperlipidemia 5. Diastolic dysfunction with no evidence of failure PLAN: 1. Would restart ASA therapy. Since ELÍAS was placed in 2013, Plavix can be discontinued. Continue Toprol XL, Diovan, Aldactone, Imdur, Lasix and Zocor as hemodynamics tolerate 2. Monitor Hgb and transfuse as needed 3. GI input noted - no intervention is being planned at this time 4. No objection in being discharged home cardiac standpoint and patient is to be followed-up with Dr. Marr [phone], cardiology. Rafa Kwok MD
--- NOTE | 2016-11-22 17:09 | DS ---
Physical Examination Vital Signs: Vital Signs Temperature 97.8 F 11/22/16 14:15 Pulse Rate 74 11/22/16 14:15 Respiratory Rate 18 11/22/16 14:15 Blood Pressure 109/60 11/22/16 14:15 O2 Sat by Pulse Oximetry (%) 96 11/22/16 10:00 Constitutional: Yes: No Distress HENT: Yes: Atraumatic Neck: Yes: Supple Cardiovascular: Yes: Regular Rate and Rhythm Respiratory: Yes: CTA Bilaterally Gastrointestinal: Yes: Normal Bowel Sounds Extremities: Yes: WNL Neurological: Yes: Alert, Oriented Labs: CBC, BMP 11/22/16 12:55 11/22/16 12:55 Discharge Summary Reason For Visit: LOWER GASTROINTESTINAL HEMORRHAGE Current Active Problems Diastolic dysfunction without heart failure (Acute) Hyperlipidemia (Acute) Lower gastrointestinal hemorrhage (Acute) Pre-procedural cardiovascular examination (Acute) Status post coronary artery bypass graft (Acute) Status post coronary artery stent placement (Acute) - Home Medications Comprehensive Discharge Medication List: Ambulatory Orders Aspirin Coated [Ecotrin -] 81 mg PO DAILY 06/08/12 Furosemide [Lasix -] 40 mg PO DAILY 06/08/12 Simvastatin [Zocor -] 20 mg PO DAILY 06/08/12 Isosorbide Mononitrate 120 mg PO DAILY 02/02/13 Metoprolol Succinate [Toprol XL -] 200 mg PO DAILY 02/02/13 Trazodone HCl 50 mg PO HS 02/02/13 Valsartan [Diovan] 320 mg PO DAILY 02/02/13 Spironolactone 25 mg PO DAILY 11/21/16 no more gi bleed on regular diet hold plavix per cardiology as no need cleared by gi to be dc pt to follow up with his gi/pmd
[2016-11-22 20:00] VITALS: BP 115/75; PULSE 70; TEMP 98
[2016-11-23] MEDS ORDERED: POLYETHYLENE GLYCOL 3350 119 GM BTL PO SCH (10:00)
== END 2016-11-22 18:06 | disposition home or self-care (01) ==
LOC: JER 08:37 → UNDOADMOB 11:11 → JERBED 11:11 → INTOOBSV 11:11 → J4W 16:21 → JERBED 16:21 → J4W 18:13
PROVIDERS: ADMIT Internal Medicine; ATTEND Internal Medicine
DX: K92.2 Gastrointestinal hemorrhage, unspecified (principal); I10 Essential (primary) hypertension; I25.2 Old myocardial infarction; I25.10 Atherosclerotic heart disease of native coronary artery without angina pectoris; I51.9 Heart disease, unspecified; E78.5 Hyperlipidemia, unspecified; B18.2 Chronic viral hepatitis C; Z95.5 Presence of coronary angioplasty implant and graft; Z79.01 Long term (current) use of anticoagulants; Z79.82 Long term (current) use of aspirin; Z88.2 Allergy status to sulfonamides; Z87.19 Personal history of other diseases of the digestive system; Z01.810 Encounter for preprocedural cardiovascular examination
CPT/HCPCS: 36415; 71010-TC; 80048; 80053; 82272; 82550; 84484; 85025; 85027; 85610; 85730; 93005; 93010; 99285-25; G0378

== ENCOUNTER 2018-12-26 08:48 | Emergency (ER) | payer OTHER ==
[2018-12-26 08:58] VITALS: TEMP 97.5; BMI 42.3
[2018-12-26] MEDS ORDERED: ACETAMINOPHEN 325 MG TABLET (FP) PO ONE (09:51)
[2018-12-26] MEDS ORDERED: METHOCARBAMOL 500 MG TABLET PO ONE (09:51)
[2018-12-26] MEDS ORDERED: ACETAMINOPHEN 325 MG TABLET (FP) ONE (09:56)
[2018-12-26] MEDS ORDERED: METHOCARBAMOL 500 MG TABLET ONE (09:57)
--- NOTE | 2018-12-26 10:08 | PDOC ---
Documentation entered by Ethel Prince SCRIBE, acting as scribe for Yuliya Thompson MD. Yuliya Thompson MD: This documentation has been prepared by the Niki kennedy Adrianna, SCRIBE, under my direction and personally reviewed by me in its entirety. I confirm that the documentation accurately reflects all work, treatment, procedures, and medical decision making performed by me. History of Present Illness - General Chief Complaint: Injury Stated Complaint: FALL / BACK PAIN Time Seen by Provider: 12/26/18 09:33 - History of Present Illness Initial Comments: Patient is Yi-speaking, and his evaluation was conducted through the use of the translator and interpreter phone. Dinkey Driver #[id number]. The patient is a 78 year old male, with a significant PMH of diverticulosis ( with hx of diverticular bleed), HTN, HLD, MT, CAD, chronic Hepatitis C, CHF (EF of 40-45%), and small bowel obstruction, who presents to the ED for evaluation of low back pain for 2.5 hours. Patient notes he slipped in the bathroom earlier this morning, causing him to fall and hit his low back on the toilet. Patient notes he was able to get up by the iqra of god and has been able to ambulate with his cane following the episode. He denies hitting his head, LOC, or feeling dizzy prior to the fall. Patient endorses left-sided low back pain secondary to the fall. Denies SOB, chest pain, fever, chills, nausea, vomit, diarrhea, or dysuria. Allergies: Sulfa Past surgical history: CABG x 3, small bowel obstruction Social history: No alcohol, tobacco or drug use reported PCP: Dr. Larsen ([phone]) 12/26/18 09:59 Past History - Past Medical History Allergies/Adverse Reactions: Allergies Allergy/AdvReac Type Severity Reaction Status Date / Time Sulfa (Sulfonamide Allergy Verified 12/26/18 08:55 Antibiotics) [Sulfa(Sulfonamide Antibiotics)] Home Medications: Ambulatory Orders Aspirin Coated [Ecotrin -] 81 mg PO DAILY 06/08/12 Furosemide [Lasix -] 40 mg PO DAILY 06/08/12 Isosorbide Mononitrate 60 mg PO DAILY 02/02/13 Metoprolol Succinate [Toprol XL -] 200 mg PO DAILY 02/02/13 Trazodone HCl 50 mg PO HS 02/02/13 Spironolactone 25 mg PO DAILY 11/21/16 Polyethylene Glycol 3350 [Miralax (For Daily Use) -] 17 gm PO DAILY #1 bottle Acetaminophen W/ Codeine #3 [Tylenol # 3 -] 1 tab PO TID PRN #15 tablet MDD 3 Albuterol Sulfate Inhaler - [Ventolin Hfa Inhaler -] 2 inh PO Q6H 12/26/18 Atorvastatin Ca [Lipitor] 40 mg PO HS 12/26/18 Lidocaine 5% Patch [Lidoderm Patch -] 1 patch TP DAILY PRN #30 patch 12/26/18 Linaclotide [Linzess] 72 mcg PO DAILY 12/26/18 Methocarbamol [Robaxin -] 500 mg PO TID PRN #30 tablet 12/26/18 Spirometers and Accessories [Mistassist] 1 each MC PRN #1 each 12/26/18 Telmisartan 40 mg PO DAILY 12/26/18 Umeclidinium Mitchell [Incruse Ellipta] 62.5 mcg IH DAILY 12/26/18 Anemia: No Asthma: No Cancer: No Cardiac Disorders: Yes (cardiac cath and stent placement at [place] ) CVA: No COPD: No Dementia: No Diabetes: No GI Disorders: No Disorders: No HTN: Yes Hypercholesterolemia: Yes (hperlipedemia) Liver Disease: No Seizures: No Thyroid Disease: No - Surgical History Abdominal Surgery: Yes (sbo) Appendectomy: No Cardiac Surgery: Yes (cabg) Cholecystectomy: No Lung Surgery: No Neurologic Surgery: No Orthopedic Surgery: No - Immunization History Immunization Up to Date: Yes - Suicide/Smoking/Psychosocial Hx Smoking Status: Yes Smoking History: Never smoked Have you smoked in the past 12 months: No Number of Cigarettes Smoked Daily: 0 If you are a former smoker, when did you quit?: 2013 Cigars Per Day: 0 Information on smoking cessation initiated: No Hx Alcohol Use: No Drug/Substance Use Hx: No Substance Use Type: None Hx Substance Use Treatment: No Review of Systems - Review of Systems Comments:: GENERAL/CONSTITUTIONAL: No fever or chills. No weakness. HEAD, EYES, EARS, NOSE AND THROAT: No change in vision. No ear pain or discharge. No sore throat. CARDIOVASCULAR: No chest pain or shortness of breath. RESPIRATORY: No cough, wheezing, or hemoptysis. GASTROINTESTINAL: No nausea, vomiting, diarrhea or constipation. GENITOURINARY: No dysuria, frequency, or change in urination. MUSCULOSKELETAL: +Left sided low back pain. No joint or muscle swelling. No neck pain. SKIN: No rash NEUROLOGIC: No headache, vertigo, loss of consciousness, or change in strength/ sensation. ENDOCRINE: No increased thirst. No abnormal weight change. HEMATOLOGIC/LYMPHATIC: No anemia, easy bleeding, or history of blood clots. ALLERGIC/IMMUNOLOGIC: No hives or skin allergy. 12/26/18 10:00 *Physical Exam - Vital Signs Last Vital Signs Temp Pulse Resp BP Pulse Ox 97.5 F L 65 17 125/58 L 95 12/26/18 08:55 12/26/18 08:55 12/26/18 08:55 12/26/18 08:55 12/26/18 08:55 - Physical Exam Comments: GENERAL: +Obese. Awake, alert, and oriented. Answering all questions appropriately. The patient is in no acute distress. HEAD: Normal with no signs of trauma. EYES: PERRLA, EOMI, sclera anicteric, conjunctiva clear. ENT: Ears normal, nares patent, oropharynx clear without exudates. Moist mucous membranes. NECK: Normal range of motion, supple without lymphadenopathy, JVD, or masses. LUNGS: Breath sounds equal, clear to auscultation bilaterally. No wheezes, and no crackles. HEART:Regular rate and rhythm, normal S1 and S2 without murmur, rub or gallop. ABDOMEN: +Obese abdomen. Soft, nontender, normoactive bowel sounds. No guarding , no rebound. No masses palpable. PELVIS: +Pelvis is stable. No hip tenderness. EXTREMITIES: +Able to lift bilateral lower extremities against gravity on his own. Normal range of motion, no edema. No clubbing or cyanosis. No erythema, or tenderness. NEUROLOGICAL: +Antalgic gait, ambulating with cane. Cranial nerves II through XII grossly intact. Normal speech. No focal neurological deficits. MUSCULOSKELETAL: +Left flank pain and bruising. No midline tenderness. No upper back tenderness. SKIN: Warm, Dry, normal turgor, no rashes or lesions noted. 12/26/18 10:01 ED Treatment Course - LABORATORY CBC & Chemistry Diagram: 12/26/18 10:15 12/26/18 10:15 - RADIOLOGY Radiology Studies Ordered: Category Date Time Status ABDOMEN & PELVIS CT W/O CONTR [CT] Stat CT Scan 12/26/18 09:[address] WITHOUT CONTRAST [CT] Stat CT Scan 12/26/18 09:49 Ordered CHEST PA & LAT [RAD] Stat Radiology 12/26/18 09:52 Ordered 12/26/18 12:31 Radiograph Interpretation: EXAM#: TYPE/EXAM: RESULT: [id number] CT/HEAD CT WITHOUT CONTRAST Status post fall IMPRESSION: Status post aneurysmal coiling seen along the right anterior margin of the etelvina limiting evaluation of the surrounding soft tissue. Mild volume loss and chronic microvascular ischemic changes without gross CT evidence of acute intracranial pathology. Correlate clinically to determine further evaluation and follow-up. Reported By: Raciel Coles MD 12/26/18 11:10 EXAM#: TYPE/EXAM: RESULT: [id number] CT/ABDOMEN PELVIS CT W/O CONTR Clinical history: 78-year-old man with fall from standing height in the left flank pain. Impression: Significantly limited exam as above. Left flank bruising incompletely seen. Fractures of the left posterior 10th through 12th ribs and the L1 and L2 left transverse processes. Rule out fracture/subluxation of a distal coccygeal segment. No specific visceral organ posttraumatic abnormalities seen. Other findings as above. Clinical correlation advised. Reported By: Andrés Orourke MD 12/26/18 11:25 EXAM#: TYPE/EXAM: RESULT: [id number] RAD/CHEST PA LAT Chest: Fall. Pain. 2 views of the chest reveal degenerative changes with wedging, scoliosis, no sign of a gross rib fracture, clear lungs, sharp angles, large heart, sclerotic unfolded aorta and sternal sutures. There is slight hilar prominence. An acute process is not seen. Since 11/21/2016, there is no change of an adverse nature. Reported By: Andrés Morel MD 12/26/18 12:02 12/26/18 12:42 - Consult/PCP Time Called: 12:45 (call placed to Dr. Larsen, pending call back ) Medical Decision Making - Medical Decision Making 12/26/18 10:02 78 yo M presenting s/p fall in the bathroom Pt reports that he slipped and fell, striking the toilet No LOC, no amnesia Pt was able to get himself up from standing with no assistance Pt is walking with pain and a limp Pt reports left flank pain Pt did not take any medication for pain On examination Left flank bruising noted No deformities noted Pt able to lift both legs against gravity EKG - NSR rate of 63 bpm, RBBB, no st elevation, t waves upright, intervals: pr: 204ms prolonged, QRS: 168ms prolonged, QTc: 440ms not prolonged Will do: Basic labs CT head and abd/pelvis Tylenol for pain 12/26/18 12:20 Laboratory Tests 11/22/16 11/22/16 12/26/18 12:55 12:55 10:15 WBC 6.6 D 8.4 Hgb 11.4 L 12.1 Hct 34.5 L 35.7 Plt Count 175 162 Sodium Potassium Chloride BUN 18 D Creatinine 0.8 Random Glucose Creatine Kinase Troponin I 12/26/18 10:15 WBC Hgb Hct Plt Count Sodium 136 Potassium 4.7 Chloride 101 BUN 25.1 H Creatinine 0.9 Random Glucose 89 Creatine Kinase 72 Troponin I < 0.02 CT Head -prior aneurysmal coiling, no intracranial hemorrhage CT abd/pelvis - fracture posterior ribs 10-12, transverse process fracture 12/26/18 12:43 Results reviewed with patient with use of tool crib manager Pt repeatedly requesting that his results be given to him in qatari I have explained multiple times that the official report is written in Georgian and I am unable to change that I assured him I would copy the pertinent results, put it thought google translate and include it in his discharge instructions Call placed to patient's PMD Dr. Larsen Pt asked to follow up with PMD and Ortho Pain management Return to the ER for any other concerns or complaints *DC/Admit/Observation/Transfer Diagnosis at time of Disposition: Rib fractures Qualifiers: Encounter type: initial encounter Rib fracture type: multiple ribs Fracture type: closed Laterality: left Qualified Code(s): S22.42XA - Multiple fractures of ribs, left side, initial encounter for closed fracture Lumbar transverse process fracture Qualifiers: Encounter type: initial encounter Fracture type: closed Qualified Code(s): S32.009A - Unspecified fracture of unspecified lumbar vertebra, initial encounter for closed fracture - Discharge Dispostion Disposition: HOME Condition at time of disposition: Stable Decision to Admit order: No - Prescriptions Prescriptions: Acetaminophen W/ Codeine #3 [Tylenol # 3 -] 1 tab PO TID PRN #15 tablet MDD 3 PRN Reason: Pain Lidocaine 5% Patch [Lidoderm Patch -] 1 patch TP DAILY PRN #30 patch PRN Reason: Pain Methocarbamol [Robaxin -] 500 mg PO TID PRN #30 tablet PRN Reason: Lower Back Pain Spirometers and Accessories [Mistassist] 1 each PRN #1 each - Referrals Referrals: Iam House MD [Staff Physician] - Eyad Huerta MD [Staff Physician] - - Patient Instructions Printed Discharge Instructions: DI for Rib Fracture, DI for Transverse Process Fracture Additional Instructions: Mr Boswell Seor boswell Alvin por venir a la rosie de emergencias He incluido freida traduccin de Google de pop resultados de CT Te dieron freida copia de tu informe de TC Por favor revise esto con srinivasan mdico de atencin primaria Debera desiree a srinivasan mdico de atencin primaria dentro de 1 semana Por favor, tome medicamentos para el dolor para el dolor Tendr que trabajar en el control del dolor y respirar profundamente. Si benito respirar profundamente, esto podra resultar en que desarrolle neumona. Regrese a la rosie de emergencias para cualquier otra inquietud o queja. Thank you for coming in to the ER I have included a google translation of your CT results You were given a copy of your CT report Please review this with your primary care physician You should see your primary care physician within 1 week Please take pain medications for pain Return to the ER for any other concerns or complaints EXAMEN N: TIPO / EXAMEN: RESULTADO: [id number] TC / NHI TC SIN CONTRASTE Estado despus de la cada IMPRESIN: Estado despus del enrollamiento aneurismtico visto a lo zhen del margen anterior derecho de la protuberancia que limita la evaluacin del tejido blando circundante. Prdida de volumen leve y cambios isqumicos microvasculares crnicos sin evidencia macroscpica de TC de patologa intracraneal aguda. Se correlacionan clnicamente para determinar freida evaluacin adicional y un seguimiento. Reportado por: Raciel Coles MD 26/12/18 11:10 EXAMEN N. : TIPO / EXAMEN: RESULTADO: [id number] CT / ABDOMEN PELVIS CT ??W / O CONTR Antecedentes clnicos: hombre de 78 aos con cada desde la altura de pie en el flanco markell. Impresin: examen significativamente limitado kalen el anterior. Flanco markell magulladuras no visto por completo. Fracturas de las costillas 10 a 12 posterior izquierda y los procesos transversales izquierdos L1 y L2. Descartar fractura / subluxacin de un segmento coccgeo distal. No se observaron anomalas postraumticas del rgano visceral especficas. Otros hallazgos kalen el anterior. Se recomienda la correlacin clnica. Reportado por: Andrés Orourke MD 26/12/18 11:25 EXAMEN #: TIPO / EXAMEN: RESULTADO: [id number] RAD / CHEST PA LAT Cofre: Cada. Dolor. Las 2 vistas del trax revelan cambios degenerativos con el acuamiento, escoliosis, sin signos de fractura de ivonne, pulmones shannen, ngulos agudos , corazn michelle, aorta esclertica desplegada y suturas esternales. Hay leve prominencia hilar. No se ve un proceso amber. Desde el 11/21/2016, no hay cambios de naturaleza adversa. Reportado por: Andrés Morel MD 26/12/18 12:0 - Post Discharge Activity
[2018-12-26 10:29] LABS: BASO % 0.3 % (0-2.0); EOS % 0.5 % (0-4.5); HEMATOCRIT 35.7 % (35.4-49); HEMOGLOBIN 12.1 GM/dL (11.7-16.9); LYMPH % 22.9 % (8-40); MCH 33.5 pg (25.7-33.7); MCHC 33.8 g/dl (32.0-35.9); MEAN CELL VOLUME 99.1 fl (80-96); MEAN PLT VOLUME 8.6 fl (7.5-11.1); MONO % 6.5 % (3.8-10.2); NEUT % 69.8 % (42.8-82.8); PLATELET COUNT 162 K/MM3 (134-434); RDW 13.7 % (11.9-15.9); WHITE BLOOD COUNT 8.4 K/mm3 (4.0-10.0)
[2018-12-26 10:54] LABS: ALBUMIN 3.2 g/dl (3.4-5.0); ALK PHOS 120 U/L (45-117); ANION GAP 3 MMOL/L (8-16); BILIRUBIN,TOTAL 0.3 mg/dL (0.2-1); BLOOD UREA NITROGEN 25.1 mg/dL (7-18); CALCIUM 9.3 mg/dL (8.5-10.1); CHLORIDE 101 mmol/L (98-107); CO2 32 mmol/L (21-32); CREATININE 0.9 mg/dL (0.55-1.3); GLUCOSE,RANDOM 89 mg/dL (74-106); POTASSIUM 4.7 mmol/L (3.5-5.1); SGOT/AST 16 U/L (15-37); SGPT/ALT 21 U/L (13-61); SODIUM 136 mmol/L (136-145)
[2018-12-26 11:51] LABS: INR 1.07 (0.83-1.09); PROTHROMBIN TIME (PATIENT) 12.6 SEC (9.7-13.0)
--- NOTE | 2018-12-26 12:27 | EKG ---
Test Reason : Blood Pressure : / mmHG Vent. Rate : 063 BPM Atrial Rate : 063 BPM P-R Int : 204 ms QRS Dur : 168 ms QT Int : 430 ms P-R-T Axes : -14 250 034 degrees QTc Int : 440 ms NORMAL SINUS RHYTHM RIGHT BUNDLE BRANCH BLOCK INFERIOR INFARCT (CITED ON OR BEFORE 28-SEP-2010) ANTEROLATERAL INFARCT (CITED ON OR BEFORE 28-SEP-2010) ABNORMAL ECG Confirmed by SPARKLE GUEVARA, KVNG ([id number]) on 12/26/2018 12:26:36 PM Referred By: Confirmed By:KVNG VILLAGRAN MD
[2018-12-26 13:19] VITALS: BP 122/63; PULSE 63
== END 2018-12-26 13:17 | disposition home or self-care (01) ==
LOC: SUPCPDRO 08:48 → JER 08:48
DX: S32.009A Unspecified fracture of unspecified lumbar vertebra, initial encounter for closed fracture (principal); S22.42XA Multiple fractures of ribs, left side, initial encounter for closed fracture; W18.39XA Other fall on same level, initial encounter; Y93.89 Activity, other specified; Y92.89 Other specified places as the place of occurrence of the external cause
CPT/HCPCS: 36415; 70450-TC; 71046-TC-FY; 74176-TC; 80053; 82550; 84484; 85025; 85610; 93005; 93010; 99284-25

== ENCOUNTER 2019-02-18 16:39 | Inpatient (IN) | payer OTHER ==
--- NOTE | 2019-02-18 16:47 | PDOC ---
History of Present Illness - General History Source: Patient, EMS - History of Present Illness Initial Comments: 78 year old male with PMH COPD, CHF, CAD ([id number]), HTN, HLD, chronic hepatitis C, diverticulosis, brain aneurysmal coiling BIBA to ED for shortness of breath since 1100 today. Pt presented to the ED on BIPAP, reported SOB had improved since BIPAP was started. PCP: [facility]: Fabricio Owen <Tiana Ratliff - Last Filed: 02/18/19 18:40> <Valentina Esteban - Last Filed: 02/18/19 19:56> - General Stated Complaint: Shortness of Breath Time Seen by Provider: 02/18/19 16:45 Past History - Past Medical History Anemia: No Asthma: No Cancer: No Cardiac Disorders: Yes (cardiac cath and stent placement at [place] [facility] ) CVA: No COPD: No Dementia: No Diabetes: No GI Disorders: No Disorders: No HTN: Yes Hypercholesterolemia: Yes (hperlipedemia) Liver Disease: No Seizures: No Thyroid Disease: No - Surgical History Abdominal Surgery: Yes (sbo) Appendectomy: No Cardiac Surgery: Yes (cabg) Cholecystectomy: No Lung Surgery: No Neurologic Surgery: No Orthopedic Surgery: No - Immunization History Immunization Up to Date: Yes - Suicide/Smoking/Psychosocial Hx Smoking Status: Yes Smoking History: Never smoked Have you smoked in the past 12 months: No Number of Cigarettes Smoked Daily: 0 If you are a former smoker, when did you quit?: 2013 Cigars Per Day: 0 Hx Alcohol Use: No Drug/Substance Use Hx: No Substance Use Type: None Hx Substance Use Treatment: No <Tiana Ratliff - Last Filed: 02/18/19 18:40> <Valentina Esteban - Last Filed: 02/18/19 19:56> - Past Medical History Allergies/Adverse Reactions: Allergies Allergy/AdvReac Type Severity Reaction Status Date / Time Sulfa (Sulfonamide Allergy Verified 02/18/19 17:01 Antibiotics) [Sulfa(Sulfonamide Antibiotics)] Home Medications: Ambulatory Orders Aspirin [Aspirin EC] 81 mg PO DAILY 02/18/19 Isosorbide Mononitrate [Isosorbide Mononitrate ER] 60 mg PO DAILY 02/18/19 Metoprolol Succinate [Toprol Xl] 200 mg PO DAILY 02/18/19 Plavix - 600 mg PO DAILY 02/18/19 Sertraline HCl 25 mg PO DAILY 02/18/19 Review of Systems - Review of Systems Able to Perform ROS?: Yes Comments:: General: denied fever, chills, generalized weakness. HEENT: denied sore throat, rhinorrhea, ear pain. Cardiovascular: denied chest pain, palpitations, syncope, diaphoresis. Respiratory: admitted to shortness of breath. denied cough, sputum production, hemoptysis. Gastrointestinal: denied abdominal pain, nausea, vomiting, diarrhea, constipation, blood in stool. Genitourinary: denied dysuria, increased urinary frequency, hematuria, urinary incontinence, flank pain. Back: denied back pain. Musculoskeletal: denied joint pain, muscle pain, joint swelling. Neurological: denied headache, dizziness, numbness, tingling, weakness. Integumentary: denied rash, laceration, abrasion. Hematologic/Lymphatic: denied bruising or bleeding. <Tiana Ratliff - Last Filed: 02/18/19 18:40> *Physical Exam - Physical Exam Comments: Constitutional: Well-nourished, Well-developed, appearing stated age. obese. HEENT: head is normocephalic, atraumatic. EOMI. PERRLA. Neck: supple. Full ROM. Cardiovascular: regular heart rhythm. no murmurs. no pericardial friction rub. Respiratory: bibasilar crackles. Gastrointestinal: soft, nontender. normal bowel sounds. no rebound, guarding, masses. Extremities: peripheral pulses intact. 3+ pitting edema bilaterally. Neurological: CN 2-12 grossly intact. moves all four extremities. Psych: awake, alert, oriented x3. follows commands. answers questions appropriately. <Tiana Ratliff - Last Filed: 02/18/19 18:40> - Vital Signs Last Vital Signs Temp Pulse Resp BP Pulse Ox 97.4 F L 62 22 H 102/56 L 100 02/18/19 17:57 02/18/19 18:54 02/18/19 18:54 02/18/19 18:54 02/18/19 18:54 <Valentina Esteban - Last Filed: 02/18/19 19:56> ED Treatment Course - LABORATORY CBC & Chemistry Diagram: 02/18/19 16:41 02/18/19 16:41 <Tiana Ratliff - Last Filed: 02/18/19 18:40> - LABORATORY CBC & Chemistry Diagram: 02/18/19 16:41 02/18/19 16:41 - ADDITIONAL ORDERS Additional order review: Laboratory Results 02/18/19 02/18/19 02/18/19 17:01 16:41 16:41 PT with INR INR PTT (Actin FS) Sodium 137 Potassium 4.6 Chloride 102 Carbon Dioxide 29 Anion Gap 6 L BUN 32.8 H Creatinine 1.4 H Est GFR (CKD-EPI)AfAm 55.77 Est GFR (CKD-EPI)NonAf 48.12 Random Glucose 101 Lactic Acid 1.2 Calcium 8.7 Phosphorus 4.0 Magnesium 2.4 Total Bilirubin 0.4 AST 13 L ALT 16 Alkaline Phosphatase 108 Creatine Kinase 40 Troponin I < 0.02 < 0.02 B-Natriuretic Peptide 1016.6 H Total Protein 7.8 Albumin 3.2 L 02/18/19 02/18/19 16:41 16:41 PT with INR 14.10 H INR 1.19 H PTT (Actin FS) 35.7 Sodium Potassium Chloride Carbon Dioxide Anion Gap BUN Creatinine Est GFR (CKD-EPI)AfAm Est GFR (CKD-EPI)NonAf Random Glucose Lactic Acid Calcium Phosphorus Magnesium Total Bilirubin AST ALT Alkaline Phosphatase Creatine Kinase Troponin I B-Natriuretic Peptide Total Protein Albumin 02/18/19 16:41 RBC 3.21 L MCV 99.0 H MCHC 33.1 RDW 14.8 MPV 8.9 Neutrophils % 66.4 Lymphocytes % 23.6 Monocytes % 9.0 Eosinophils % 0.7 Basophils % 0.3 - Medications Given in the ED: ED Medications Discontinued Medications Generic Name Dose Route Start Last Admin Trade Name Freq PRN Reason Stop Dose Admin Albuterol/Ipratropium 3 amp 02/18/19 16:57 02/18/19 17:37 Duoneb - NEB 02/18/19 16:58 3 amp ONCE ONE Administration Aspirin 162 mg 02/18/19 16:55 02/18/19 17:36 Asa - PO 02/18/19 16:56 162 mg ONCE ONE Administration <Valentina Esteban - Last Filed: 02/18/19 19:56> Medical Decision Making - Medical Decision Making 78 year old male with above PMH BIBA to ED on BIPAP for SOB since 1100 today. Initial Vital Signs Pulse Resp BP Pulse Ox 56 L 26 H 97/58 L 99 02/18/19 16:40 02/18/19 16:40 02/18/19 16:40 02/18/19 16:40 Bradycardia. Tachypnea. Hypotensive. No hypoxia on BIPAP. Labs ordered: CBC, CMP, Mag, Phos, lactate, blood cultures, ABG Imaging ordered: CXR Medications ordered: ASA 162 mg PO chew once, duoneb x3 EKG performed at 1734: rate 56, regular rhythm, left axis, RBBB, sinus bradycardia with first degree AV block 02/18/19 16:57 No ABG supplies in ED. Respiratory paged. 02/18/19 17:29 CBC WBC 5.7 K/mm3 (4.0-10.0) 02/18/19 16:41 RBC 3.21 M/mm3 (4.00-5.60) L 02/18/19 16:41 Hgb 10.5 GM/dL (11.7-16.9) L 02/18/19 16:41 Hct 31.8 % (35.4-49) L 02/18/19 16:41 MCV 99.0 fl (80-96) H 02/18/19 16:41 MCH 32.8 pg (25.7-33.7) 02/18/19 16:41 MCHC 33.1 g/dl (32.0-35.9) 02/18/19 16:41 RDW 14.8 % (11.9-15.9) 02/18/19 16:41 Plt Count 171 K/MM3 (134-434) 02/18/19 16:41 MPV 8.9 fl (7.5-11.1) 02/18/19 16:41 Absolute Neuts (auto) 3.8 K/mm3 (1.5-8.0) 02/18/19 16:41 Neutrophils % 66.4 % (42.8-82.8) 02/18/19 16:41 Lymphocytes % 23.6 % (8-40) 02/18/19 16:41 Monocytes % 9.0 % (3.8-10.2) 02/18/19 16:41 Eosinophils % 0.7 % (0-4.5) 02/18/19 16:41 Basophils % 0.3 % (0-2.0) 02/18/19 16:41 Nucleated RBC % 0 % (0-0) 02/18/19 16:41 No leukocytosis. Macrocytic anemia. 02/18/19 17:48 CMP Sodium 137 mmol/L (136-145) 02/18/19 16:41 Potassium 4.6 mmol/L (3.5-5.1) 02/18/19 16:41 Chloride 102 mmol/L (98-107) 02/18/19 16:41 Carbon Dioxide 29 mmol/L (21-32) 02/18/19 16:41 Anion Gap 6 MMOL/L (8-16) L 02/18/19 16:41 BUN 32.8 mg/dL (7-18) H 02/18/19 16:41 Creatinine 1.4 mg/dL (0.55-1.3) H 02/18/19 16:41 Est GFR (CKD-EPI)AfAm 55.77 02/18/19 16:41 Est GFR (CKD-EPI)NonAf 48.12 02/18/19 16:41 Random Glucose 101 mg/dL (74-106) 02/18/19 16:41 Lactic Acid 1.2 mmol/L (0.4-2.0) 02/18/19 17:01 Calcium 8.7 mg/dL (8.5-10.1) 02/18/19 16:41 Phosphorus 4.0 mg/dL (2.5-4.9) 02/18/19 16:41 Magnesium 2.4 mg/dL (1.8-2.4) 02/18/19 16:41 Total Bilirubin 0.4 mg/dL (0.2-1) 02/18/19 16:41 AST 13 U/L (15-37) L 02/18/19 16:41 ALT 16 U/L (13-61) 02/18/19 16:41 Alkaline Phosphatase 108 U/L (45-117) 02/18/19 16:41 Creatine Kinase 40 U/L (26-308) 02/18/19 16:41 Troponin I < 0.02 ng/ml (0.00-0.05) 02/18/19 16:41 B-Natriuretic Peptide 1016.6 pg/ml (5-450) H 02/18/19 16:41 Total Protein 7.8 g/dl (6.4-8.2) 02/18/19 16:41 Albumin 3.2 g/dl (3.4-5.0) L 02/18/19 16:41 No electrolyte abnormalities. JANE BNP elevation Troponin undetectable Pt to be admitted for SOB requiring BIPAP, likely secondary to CHF exacerbation. 02/18/19 17:58 Dr. Fabricio Owen, pt's [facility], paged. 02/18/19 18:[address] Anderson, who stated Dr. Fabricio Owen has admitted his own patients in the past, she would like us to check that he does not want to admit the patient himself. Dr. Fabricio Owen paged again. 02/18/19 18:27 No call back from Dr. Owen. I spoke with Dr. Anderson, who agrees with admission. She requests Dr. Kwok to be consulted. Dr. Kwok paged. 02/18/19 18:[address] Singh, cardiology telephone messenger. Consult placed. <Tiana Ratliff - Last Filed: 02/18/19 18:40> - Medical Decision Making Discussed case with patient's [facility], Dr. Owen. Last ECHO from 2016? showed EF of 50%. Last systolic BP was 113. Dr. Owen agrees with holding off on lasix until evaluated by cardiology in the morning. 02/18/19 19:54 <Valentina Esteban - Last Filed: 02/18/19 19:56> *DC/Admit/Observation/Transfer - Discharge Dispostion Decision to Admit order: Yes <Tiana Ratliff - Last Filed: 02/18/19 18:40> <Valentina Esteban - Last Filed: 02/18/19 19:56> Diagnosis at time of Disposition: CHF exacerbation, Shortness of breath, BiPAP (biphasic positive airway pressure ) dependence, First degree AV block, Sinus bradycardia - Discharge Dispostion Condition at time of disposition: Stable
[2019-02-18] MEDS ORDERED: ALBUTEROL SO4 2.5/IPRATROPIUM 0.5 INH SOL 3 ML VIAL.NEB. NEB ONE ×3 (16:51→17:30)
[2019-02-18] MEDS ORDERED: ASPIRIN 81 MG CHEWABLE TABLETS PO ONE (16:55)
[2019-02-18 17:13] LABS: BASO % 0.3 % (0-2.0); EOS % 0.7 % (0-4.5); HEMATOCRIT 31.8 % (35.4-49); HEMOGLOBIN 10.5 GM/dL (11.7-16.9); LYMPH % 23.6 % (8-40); MCH 32.8 pg (25.7-33.7); MCHC 33.1 g/dl (32.0-35.9); MEAN PLT VOLUME 8.9 fl (7.5-11.1); NEUT % 66.4 % (42.8-82.8); PLATELET COUNT 171 K/MM3 (134-434); RBC 3.21 M/mm3 (4.00-5.60); RDW 14.8 % (11.9-15.9); WHITE BLOOD COUNT 5.7 K/mm3 (4.0-10.0)
[2019-02-18 17:24] LABS: INR 1.19 (0.83-1.09); PROTHROMBIN TIME (PATIENT) 14.1 SEC (9.7-13.0)
[2019-02-18] MEDS ORDERED: ASPIRIN 81 MG CHEWABLE TABLETS ONE (17:30)
[2019-02-18 17:36] LABS: ALBUMIN 3.2 g/dl (3.4-5.0); ALK PHOS 108 U/L (45-117); ANION GAP 6 MMOL/L (8-16); BILIRUBIN,TOTAL 0.4 mg/dL (0.2-1); BLOOD UREA NITROGEN 32.8 mg/dL (7-18); CALCIUM 8.7 mg/dL (8.5-10.1); CHLORIDE 102 mmol/L (98-107); CO2 29 mmol/L (21-32); CREATININE 1.4 mg/dL (0.55-1.3); GLUCOSE,RANDOM 101 mg/dL (74-106); MAGNESIUM 2.4 mg/dL (1.8-2.4); N-TERMINAL BNP 1016.6 pg/ml (5-450); POTASSIUM 4.6 mmol/L (3.5-5.1); SGOT/AST 13 U/L (15-37); SGPT/ALT 16 U/L (13-61); SODIUM 137 mmol/L (136-145); TOT PROT 7.8 g/dl (6.4-8.2)
--- NOTE | 2019-02-18 18:06 | PDOC ---
Documentation entered by Ethel Prince SCRIBE, acting as scribe for Valentina Esteban MD. Valentina Esteban MD: This documentation has been prepared by the Niki kennedy Adrianna, SCRIBE, under my direction and personally reviewed by me in its entirety. I confirm that the documentation accurately reflects all work, treatment, procedures, and medical decision making performed by me. Attending Attestation - Resident Resident Name: Tiana Ratliff - HPI HPI: The patient is a 78 year old male, with a significant PMH of diverticulosis ( with hx of diverticular bleed), COPD, HTN, HLD, [place], CAD (s/p CABG x3 vessels), brain aneurysmal coiling, chronic Hepatitis C, liver transplant, CHF (EF of 40- 45%), and small bowel obstruction, who presents to the ED BIBEMS for evaluation of shortness of breath since earlier this morning. Patient was placed on BIPAP prior to arrival. Denies chest pain, fever, chills, nausea, vomit, diarrhea, or dysuria. Allergies: Sulfa Past surgical history: CABG x 3, small bowel obstruction Social history: No alcohol, tobacco or drug use reported PCP: Dr. Vidales [phone]) Parts Manager: Dr. Fabricio Owen - Physicial Exam PE: 02/18/19 18:02 GEn: alert, on bipap, speaking in complete sentences CV: rrr, bradycardic Ext: + 2 pitting edema to knee b/l - Critical Care Time Total Critical Care Time: 30 Critical Care Statement: The care of this patient involved high complexity decision making to prevent further life threatening deterioration of the patient 's condition and/or to evaluate & treat vital organ system(s) failure or risk of failure. - Medical Decision Making 02/18/19 18:02 Pt presents to the ED complaining of the acute onset of shortness of breath at 11 am today. On arrival of EMS, patient was acutely hypoxic. Improved on bipap. On arrival to the ED, patient is alert and reports significant improvement in his symptoms. He is borderline hypotensive. Labs and exam are consistent with CHF. Will continue bipap and admit to medicine for continued management. 02/18/19 18:[address] Iniguez, who recommends IV lasix and to give inotropes if the blood pressure drops further. I am uncomfortable giving lasix given that the patient is hypotensive. Will transmit his recommendations to the admitting team.
--- NOTE | 2019-02-18 19:38 | HP ---
Admitting History and Physical - Primary Care Physician PCP: Bety Anderson - Admission History of Present Illness: 78 year old male, with a significant PMH of diverticulosis (with hx of diverticular bleed), COPD, HTN, HLD, [place], CAD (s/p CABG x3 vessels), brain aneurysmal coiling, chronic Hepatitis C, liver transplant, CHF (EF of 40-45%), and small bowel obstruction, who presents to the ED BIBEMS for evaluation of shortness of breath since earlier this morning. Patient was placed on BIPAP prior to arrival. - Past Medical History Cardiovascular: Yes: CAD, CHF, HTN, Hyperlipdemia Hepatobiliary: Yes: Hepatitis B (describes having a liver biopsy in the past) - Past Surgical History Past Surgical History: Yes: CABG, Upper Endoscopy (years ago. results n/a). 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 History of Recent Travel: No Home Medications - Allergies Allergies/Adverse Reactions: Allergies Allergy/AdvReac Type Severity Reaction Status Date / Time Sulfa (Sulfonamide Allergy Verified 02/18/19 17:01 Antibiotics) [Sulfa(Sulfonamide Antibiotics)] - Home Medications Home Medications: Ambulatory Orders Aspirin [Aspirin EC] 81 mg PO DAILY 02/18/19 Isosorbide Mononitrate [Isosorbide Mononitrate ER] 60 mg PO DAILY 02/18/19 Metoprolol Succinate [Toprol Xl] 200 mg PO DAILY 02/18/19 Plavix - 600 mg PO DAILY 02/18/19 Sertraline HCl 25 mg PO DAILY 02/18/19 Family Disease History - Family Disease History Family Disease History: Other: Father ( natural causes), Mother ( natural causes), Brother (2 brothers, healthy), Sister (1 sister, healthy) Physical Examination Vital Signs: Vital Signs Temperature 97.4 F L 02/18/19 17:57 Pulse Rate 62 02/18/19 18:54 Respiratory Rate 22 H 02/18/19 18:54 Blood Pressure 102/56 L 02/18/19 18:54 O2 Sat by Pulse Oximetry (%) 100 02/18/19 18:54 Constitutional: Yes: Anxious HENT: Yes: Atraumatic Neck: Yes: Supple Cardiovascular: Yes: Regular Rate and Rhythm Respiratory: Yes: Rhonchi Gastrointestinal: Yes: Normal Bowel Sounds Extremities: Yes: WNL Neurological: Yes: Alert, Oriented Labs: CBC, BMP 02/18/19 16:41 02/18/19 16:41 Imaging - Results X-ray: Report Reviewed Problem List - Problems (1) BiPAP (biphasic positive airway pressure) dependence Code(s): Z99.89 - DEPENDENCE ON OTHER ENABLING MACHINES AND DEVICES (2) CHF exacerbation Assessment/Plan: continue home meds cardiology consult Code(s): I50.9 - HEART FAILURE, UNSPECIFIED (3) CAD (coronary artery disease) Code(s): I25.10 - ATHSCL HEART DISEASE OF [place] CORONARY ARTERY W/O ANG PCTRS Qualifiers: (4) HTN (hypertension) Assessment/Plan: onm eds monitor Code(s): I10 - ESSENTIAL (PRIMARY) HYPERTENSION Qualifiers: (5) Hyperlipidemia Assessment/Plan: on lipitor Code(s): E78.5 - HYPERLIPIDEMIA, UNSPECIFIED Qualifiers: Assessment/Plan Laboratory Tests 02/18/19 02/18/19 02/18/19 16:41 16:41 16:41 WBC RBC Hgb Hct MCV MCH MCHC RDW Plt Count MPV Absolute Neuts (auto) Neutrophils % Lymphocytes % Monocytes % Eosinophils % Basophils % Nucleated RBC % PT with INR 14.10 H INR 1.19 H PTT (Actin FS) 35.7 Sodium Potassium Chloride Carbon Dioxide Anion Gap BUN Creatinine Est GFR (CKD-EPI)AfAm Est GFR (CKD-EPI)NonAf Random Glucose Lactic Acid Calcium Phosphorus Magnesium Total Bilirubin AST ALT Alkaline Phosphatase Creatine Kinase 40 Troponin I < 0.02 B-Natriuretic Peptide Total Protein Albumin 02/18/19 02/18/19 02/18/19 16:41 16:41 17:01 WBC 5.7 RBC 3.21 L Hgb 10.5 L Hct 31.8 L MCV 99.0 H MCH 32.8 MCHC 33.1 RDW 14.8 Plt Count 171 MPV 8.9 Absolute Neuts (auto) 3.8 Neutrophils % 66.4 Lymphocytes % 23.6 Monocytes % 9.0 Eosinophils % 0.7 Basophils % 0.3 Nucleated RBC % 0 PT with INR INR PTT (Actin FS) Sodium 137 Potassium 4.6 Chloride 102 Carbon Dioxide 29 Anion Gap 6 L BUN 32.8 H Creatinine 1.4 H Est GFR (CKD-EPI)AfAm 55.77 Est GFR (CKD-EPI)NonAf 48.12 Random Glucose 101 Lactic Acid 1.2 Calcium 8.7 Phosphorus 4.0 Magnesium 2.4 Total Bilirubin 0.4 AST 13 L ALT 16 Alkaline Phosphatase 108 Creatine Kinase Troponin I < 0.02 B-Natriuretic Peptide 1016.6 H Total Protein 7.8 Albumin 3.2 L Active Medications Generic Name Dose Route Start Last Admin Trade Name Freq PRN Reason Stop Dose Admin Albuterol/Ipratropium 1 amp 02/19/19 16:00 Duoneb - NEB RQID [facility] Aspirin 81 mg 02/19/19 10:00 02/19/19 10:15 Ecotrin - PO 81 mg DAILY ZAYNAB Administration Atorvastatin Calcium 20 mg 02/19/19 22:00 Lipitor - PO HS ZAYNAB Clopidogrel Bisulfate 75 mg 02/19/19 16:30 Plavix - PO DAILY [facility] Heparin Sodium (Porcine) 5,000 unit 02/18/19 22:00 02/19/19 10:15 Heparin - SQ 5,000 unit BID ZAYNAB Administration Isosorbide Mononitrate 60 mg 02/19/19 10:00 02/19/19 10:15 Imdur - PO 60 mg DAILY [facility] Administration Metoprolol Succinate 200 mg 02/19/19 10:30 02/19/19 10:39 Toprol Xl - PO 200 mg DAILY [facility] Administration Sertraline HCl 25 mg 02/19/19 10:00 02/19/19 10:15 Zoloft - PO 25 mg DAILY [facility] Administration
[2019-02-18] MEDS ORDERED: ACETAMINOPHEN 1000 MG/100 ML VIAL (NON FORMULARY) IVPB ONE (20:49)
[2019-02-18] MEDS ORDERED: ACETAMINOPHEN INJECTION 100 ML IVPB ONE (21:04)
[2019-02-18 21:29] LABS: MAGNESIUM 2.5 mg/dL (1.8-2.4); PHOSPHOROUS 4.1 mg/dL (2.5-4.9)
[2019-02-18] MEDS: HEPARIN NA (PORCINE) 5,000 UNITS/ML 1ML VIAL SQ SCH (23:33)
[2019-02-19 06:32] LABS: ARTERIAL BLD GAS O2 SATURATION 97.3 % (95-98); ARTERIAL BLOOD GAS BASE EXCESS 3.5 meq/l (-2-2); ARTERIAL BLOOD GAS PCO2 59.2 mmHg (35-45); ARTERIAL BLOOD GAS PO2 104 mmHg (80-105); ARTERIAL BLOOD GAS pH 7.32 (7.35-7.45); CARBOXYHEMOGLOBIN 1.2 % (0-2)
[2019-02-19 06:33] LABS: ALLENS TEST POSITIVE
[2019-02-19 06:45] LABS: BASO % 0.1 % (0-2.0); EOS % 1.1 % (0-4.5); HEMATOCRIT 28.7 % (35.4-49); HEMOGLOBIN 9.6 GM/dL (11.7-16.9); LYMPH % 35.1 % (8-40); MCH 33.2 pg (25.7-33.7); MCHC 33.3 g/dl (32.0-35.9); MEAN CELL VOLUME 99.7 fl (80-96); MEAN PLT VOLUME 8.9 fl (7.5-11.1); MONO % 8.7 % (3.8-10.2); PLATELET COUNT 153 K/MM3 (134-434); RBC 2.88 M/mm3 (4.00-5.60); RDW 14.8 % (11.9-15.9); WHITE BLOOD COUNT 4.2 K/mm3 (4.0-10.0)
[2019-02-19 07:11] LABS: ALBUMIN 2.9 g/dl (3.4-5.0); BILIRUBIN,TOTAL 0.8 mg/dL (0.2-1); BLOOD UREA NITROGEN 30.3 mg/dL (7-18); CALCIUM 8.5 mg/dL (8.5-10.1); CREATININE 1.3 mg/dL (0.55-1.3); POTASSIUM 4.4 mmol/L (3.5-5.1); TOT PROT 6.9 g/dl (6.4-8.2)
[2019-02-19] MEDS ORDERED: CLOPIDOGREL PO SCH (10:00)
[2019-02-19] MEDS ORDERED: PT OWN MED DRAWER 7, Y5N ONE (10:06)
[2019-02-19] MEDS: ISOSORBIDE MONONITRATE 60 MG TAB.SR.24H (FP) PO SCH (10:15)
[2019-02-19] MEDS: SERTRALINE HCL 25 MG TABLET (FP) PO SCH (10:15)
[2019-02-19] MEDS: HEPARIN NA (PORCINE) 5,000 UNITS/ML 1ML VIAL SQ SCH ×2 (10:15→21:10)
[2019-02-19] MEDS: ASPIRIN COATED 81 MG TABLET.EC PO SCH (10:15)
--- NOTE | 2019-02-19 11:56 | PN ---
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 H/O LIVER TRANSPLANT CHRONIC HEP C ANEMIA MORBID OBESITY PLAN LASIX SUPPLEMENTAL O2 INHALED BRONCHODILATORS CHEST CT BIPAP AT NIGHT AND PRN DAILY WTS AMBULATORY O2 SAT PRIOR TO DISCHARGE TO DETERMINE IF PT IS A CANDIDATE FOR HOME O2 YEARLY LOW DOSE CHEST CT FOR LUNG CANCER SCREENING MONITOR LYTES,H+H NORMAL TRANSFUSION THRESHOLD DR CRUMP Problem List - Problems (1) Acute respiratory failure with hypoxia and hypercapnia Code(s): J96.01 - ACUTE RESPIRATORY FAILURE WITH HYPOXIA; J96.02 - ACUTE RESPIRATORY FAILURE WITH HYPERCAPNIA (2) CHF exacerbation Code(s): I50.9 - HEART FAILURE, UNSPECIFIED (3) Shortness of breath Code(s): R06.02 - SHORTNESS OF BREATH (4) CAD (coronary artery disease) Code(s): I25.10 - ATHSCL HEART DISEASE OF [place] CORONARY ARTERY W/O ANG PCTRS Qualifiers: (5) Hyperlipidemia Code(s): E78.5 - HYPERLIPIDEMIA, UNSPECIFIED Qualifiers: (6) Status post coronary artery bypass graft Code(s): Z95.1 - PRESENCE OF AORTOCORONARY BYPASS GRAFT (7) Sleep apnea Code(s): G47.30 - SLEEP APNEA, UNSPECIFIED (8) Diastolic dysfunction without heart failure Code(s): I51.9 - HEART DISEASE, UNSPECIFIED (9) Morbid obesity Code(s): E66.01 - MORBID (SEVERE) OBESITY DUE TO EXCESS CALORIES
--- NOTE | 2019-02-19 13:13 | CONS ---
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 Admitted to [facility] with complaints of shortness of breath since morning of admission. Patient had increasing shortness of breath and also increased lower extremity edema. He called EMS and was placed on BiPAP with good response. In the emergency room, he was felt to be in acute congestive heart failure. He was administered Lasix. Patient was subsequently transferred on telemetry unit for further management. Patient has a history of tobacco use, approximately 1 pack per day many years. Quit 9 years ago. 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 Denies any history of respiratory failure in the past requiring ventilatory support. There is no history of DVT or PE in the past. There is no history of recent travel. 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 REVIEW OF SYSTEMS: Positive orthopnea, positive dyspnea. No chest pain, no palpitations, no cough, no hemoptysis, no fever, no chills, no abdominal pain. Positive mild lower extremity edema. CURRENT MEDICATIONS: Include Plavix, heparin, Zoloft, Toprol, Imdur, and Ecotrin. PHYSICAL EXAMINATION: General: The patient is an obese male well developed, awake, alert currently in no acute distress. Vital Signs: He is afebrile. Blood pressure is 91/50, respiratory rate is 20, O2 saturation is 98% on 3 L nasal cannula. HEENT: Normocephalic, atraumatic. Neck: Supple. Heart: Regular S1, S2. Chest: Diminished breath sounds bilaterally. Abdomen: Soft, obtain, nontender. Extremities: Trace edema bilaterally. LABORATORIES: BUN 30, creatinine 1.3, BNP 1016, WBC 4.2, hemoglobin 9.6, hematocrit 28.7 with a platelet count of 153,000. Blood gas: 7.32, PCO2 of 52, PO2 of 104, bicarbonate 29, saturation of 97. That was on BiPAP of 12 and EPAP of 5 at a rate of 14 and FiO2 of 40%. Chest x-ray: Cardiomegaly, mild increased markings at the bases. Left lower lung obscured by cardiac silhouette. IMPRESSION: 1. Likely acute hypoxic, hypercapnic respiratory failure secondary to acute on chronic congestive heart failure. 2. Chronic obstructive pulmonary disease. 3. Arteriosclerotic heart disease status post myocardial infarction status post coronary artery bypass graft x3 vessels. 4. 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 5. Obstructive sleep apnea on CPAP. 6. History of liver transplant. 7. Chronic hepatitis C. 8. Anemia. PLAN: Lasix as per Cardiology. Supplemental O2. Inhaled bronchodilators. CT scan of the chest. Continue BiPAP at night as well as p.r.n. if increasing shortness of breath. Ambulatory O2 saturation prior to discharge to determine if patient is a candidate for home O2. Yearly low-dose chest CT for lung cancer screenings. Patient has a longstanding history of tobacco use, quit 9 years ago. Monitor electrolytes and hemoglobin and hematocrit. Normal transfusion threshold. BRUNA CRUMP M.D. SOLOMON/[id number] MTDD
[2019-02-19] MEDS: ALBUTEROL SO4 2.5/IPRATROPIUM 0.5 INH SOL 3 ML VIAL.NEB. NEB SCH ×2 (15:25→20:24)
--- NOTE | 2019-02-19 15:49 | PN ---
Progress Note (short form) - Note Progress Note: Chief Complaint: Events noted, notes reviewed, evaluation of progressive exertional dyspnea, increasing bilateral lower extremity edema History of Present Illness: Seen and examined on telemetry. Full consult dictated Echocardiography performed January 10, 2019 revealed mild to moderate reduction in left ventricular systolic function with estimated LVEF between 40-45%, mild left atrial dilatation, poorly visualize right ventricle but grossly normal in size, mild thickening of the mitral valve leaflets with trace mitral valve regurgitation Left heart cardiac catheterization coronary angiography January 09, 2019 revealed triple vessel obstructive coronary artery disease, left main distal 30% diameter stenosis, mid LAD 100% diameter stenosis, proximal LCx 60% diameter stenosis, LCx OM 100% diameter stenosis (post intervention), proximal RCA 100% diameter stenosis, patent DRIVER to mid LAD, SVG to RPDA distal SVG anastomotic stenosis Pharmacologic myocardial perfusion imaging study performed November 27, 2018 revealed large size infero-lateral and hien-lateral wall defect compatible with ischemia with zone of infarct moderate size hien-apical wall defect compatible with ischemia, calculated LV EF of 54%overestimated Medications: Current Medications Albuterol/Ipratropium (Duoneb -) 1 amp NEB RQID [facility] Aspirin (Ecotrin -) 81 mg PO DAILY [facility] Last Admin: 02/19/19 10:15 Dose: 81 mg Atorvastatin Calcium (Lipitor -) 20 mg PO HS [facility] Clopidogrel Bisulfate (Plavix -) 75 mg PO DAILY [facility] Heparin Sodium (Porcine) (Heparin -) 5,000 unit SQ BID [facility] Last Admin: 02/19/19 10:15 Dose: 5,000 unit Isosorbide Mononitrate (Imdur -) 60 mg PO DAILY [facility] Last Admin: 02/19/19 10:15 Dose: 60 mg Metoprolol Succinate (Toprol Xl -) 200 mg PO DAILY [facility] Last Admin: 02/19/19 10:39 Dose: 200 mg Sertraline HCl (Zoloft -) 25 mg PO DAILY [facility] Last Admin: 02/19/19 10:15 Dose: 25 mg Review of Systems Constitutional: denies: Chills or Fever Cardiovascular: as noted above Respiratory: denies: Cough Gastrointestinal: denies: Nausea, Vomiting, Diarrhea, Constipation or Abdominal Pain Genitourinary: denies: Dysuria Musculoskeletal: denies: Joint Pain Neurological: denies: Dizziness or Headache Vital Signs: Last Vital Signs Temp Pulse Resp BP Pulse Ox 98 F 56 L 20 106/50 L 98 02/19/19 14:00 02/19/19 14:00 02/19/19 14:00 02/19/19 14:00 02/19/19 11:22 Intake & Output 02/16/19 02/17/19 02/18/19 02/19/19 23:59 23:59 23:59 23:59 Intake Total 200 Output Total 1100 Balance 200 -1100 Weight 281 lb 9.6 oz 281 lb Constitutional: No Distress, Calm, Thin Respiratory: Diminished at the Bases Bilaterally Cardiovascular: S1 S2 Regular Rate and Rhythm Gastrointestinal: Soft Benign Normal Bowel Sounds Ext: Edema Labs: Troponin, BNP 02/18/19 02/18/19 02/18/19 16:41 16:41 20:35 Troponin I < 0.02 < 0.02 < 0.02 B-Natriuretic Peptide 1016.6 H CBC, BMP 02/19/19 05:57 02/19/19 05:57 Hepatic Panel Total Bilirubin 0.8 mg/dL (0.2-1) 02/19/19 05:57 AST 12 U/L (15-37) L 02/19/19 05:57 ALT 13 U/L (13-61) 02/19/19 05:57 Alkaline Phosphatase 87 U/L (45-117) 02/19/19 05:57 Albumin 2.9 g/dl (3.4-5.0) L 02/19/19 05:57 INR, PTT INR 1.19 (0.83-1.09) H 02/18/19 16:41 Assessment/Plan ASSESSMENT: 1. Clinical presentation is consistent with acute on chronic class I-II [place] [employer] classification left ventricular failure related to systolic/diastolic left ventricular dysfunction 2. Coronary artery disease post myocardial infarction post coronary artery bypass grafting post multi-vessel percutaneous coronary intervention/stenting residual disease angina pectoris 3. Hypertensive cardiovascular disease 4. Hypercholesterolemia 5. Chronic kidney disease 6. Anemia PLAN: 1. Change Toprol-XL to Coreg at 25 mg twice daily 2. Ideally WENDY inhibitor or angiotensin receptor florinda therapy initiation is recommended provided renal function stabilizes/at baseline 3. Diuretics with caution, Lasix and consideration for addition of Aldactone therapy provided renal function stabilizes/at baseline 4. Continue Lipitor therapy 5. Continue Ecotrin and Plavix therapies with caution and close monitoring of hemoglobin 6. Echocardiography for evaluation of left ventricular systolic function and valvular function 7. Patient was strongly counseled dietary compliance including caloric restriction- weight reduction Janet Singh M.D.
--- NOTE | 2019-02-19 16:10 | EKG ---
Test Reason : Blood Pressure : / mmHG Vent. Rate : 055 BPM Atrial Rate : 055 BPM P-R Int : 174 ms QRS Dur : 174 ms QT Int : 478 ms P-R-T Axes : -10 252 040 degrees QTc Int : 457 ms SINUS BRADYCARDIA WITH OCCASIONAL PREMATURE VENTRICULAR COMPLEXES RIGHT BUNDLE BRANCH BLOCK LATERAL INFARCT (CITED ON OR BEFORE 28-SEP-2010) INFERIOR INFARCT (CITED ON OR BEFORE 28-SEP-2010) ABNORMAL ECG WHEN COMPARED WITH ECG OF 18-FEB-2019 17:34, [place] INTERVAL HAS DECREASED Confirmed by MD EUNICE, ES ([id number]) on 02/19/2019 4:10:41 PM Referred By: Confirmed By:ES DAWSON MD
--- NOTE | 2019-02-19 16:12 | EKG ---
Test Reason : Blood Pressure : / mmHG Vent. Rate : 056 BPM Atrial Rate : 056 BPM P-R Int : 212 ms QRS Dur : 180 ms QT Int : 468 ms P-R-T Axes : 023 247 036 degrees QTc Int : 451 ms SINUS BRADYCARDIA WITH 1ST DEGREE A-V BLOCK WITH OCCASIONAL PREMATURE VENTRICULAR COMPLEXES RIGHT BUNDLE BRANCH BLOCK LATERAL INFARCT (CITED ON OR BEFORE 28-SEP-2010) INFERIOR INFARCT (CITED ON OR BEFORE 28-SEP-2010) ABNORMAL ECG WHEN COMPARED WITH ECG OF 26-DEC-2018 09:56, PREMATURE VENTRICULAR COMPLEXES ARE NOW PRESENT QUESTIONABLE CHANGE IN INITIAL FORCES OF ANTEROLATERAL LEADS Confirmed by MD EUNICE, ES ([id number]) on 02/19/2019 4:12:32 PM Referred By: Confirmed By:ES DAWSON MD
--- NOTE | 2019-02-19 16:21 | PN ---
Progress Note, Physician - Current Medication List Current Medications: Active Medications Albuterol/Ipratropium (Duoneb -) 1 amp NEB RQID [facility] Aspirin (Ecotrin -) 81 mg PO DAILY [facility] Last Admin: 02/19/19 10:15 Dose: 81 mg Atorvastatin Calcium (Lipitor -) 20 mg PO HS [facility] Clopidogrel Bisulfate (Plavix -) 75 mg PO DAILY [facility] Heparin Sodium (Porcine) (Heparin -) 5,000 unit SQ BID [facility] Last Admin: 02/19/19 10:15 Dose: 5,000 unit Isosorbide Mononitrate (Imdur -) 60 mg PO DAILY [facility] Last Admin: 02/19/19 10:15 Dose: 60 mg Metoprolol Succinate (Toprol Xl -) 200 mg PO DAILY [facility] Last Admin: 02/19/19 10:39 Dose: 200 mg Sertraline HCl (Zoloft -) 25 mg PO DAILY [facility] Last Admin: 02/19/19 10:15 Dose: 25 mg - Objective Vital Signs: Vital Signs Temperature 98 F 02/19/19 14:00 Pulse Rate 56 L 02/19/19 14:00 Respiratory Rate 20 02/19/19 14:00 Blood Pressure 106/50 L 02/19/19 14:00 O2 Sat by Pulse Oximetry (%) 98 02/19/19 11:22 Constitutional: Yes: No Distress HENT: Yes: Atraumatic Neck: Yes: Supple Cardiovascular: Yes: Regular Rate and Rhythm Respiratory: Yes: Rhonchi, Wheezes Gastrointestinal: Yes: Normal Bowel Sounds Extremities: Yes: WNL Edema: No Peripheral Pulses WNL: Yes Neurological: Yes: Alert, Oriented Labs: CBC, BMP 02/19/19 05:57 02/19/19 05:57 INR, PTT INR 1.19 (0.83-1.09) H 02/18/19 16:41 Problem List - Problems (1) BiPAP (biphasic positive airway pressure) dependence Code(s): Z99.89 - DEPENDENCE ON OTHER ENABLING MACHINES AND DEVICES (2) CHF exacerbation Assessment/Plan: continue home meds cardiology consult Code(s): I50.9 - HEART FAILURE, UNSPECIFIED (3) CAD (coronary artery disease) Code(s): I25.10 - ATHSCL HEART DISEASE OF [place] CORONARY ARTERY W/O ANG PCTRS Qualifiers: (4) HTN (hypertension) Assessment/Plan: onm eds monitor Code(s): I10 - ESSENTIAL (PRIMARY) HYPERTENSION Qualifiers: (5) Hyperlipidemia Assessment/Plan: on lipitor Code(s): E78.5 - HYPERLIPIDEMIA, UNSPECIFIED Qualifiers:
[2019-02-19] MEDS: CLOPIDOGREL BISULFATE 75 MG TABLET (FP) PO SCH (18:30)
--- NOTE | 2019-02-19 20:50 | CONS ---
DATE OF CONSULTATION: 02/19/2019 REQUESTED BY: Hospitalist Service CHIEF COMPLAINT: Progressive dyspnea, cardiovascular evaluation. History was obtained from the patient, medical records. A 78-year-old obese male of descent with known history of coronary artery disease, status post myocardial infarction, status post coronary artery bypass grafting, status post multivessel percutaneous coronary intervention (most recent intervention was performed January 09, 2019), angina pectoris, systolic/diastolic left ventricular dysfunction with chronic Class zero to 1 [place] Heart Association Classification left ventricular failure, hypertensive cardiovascular disease, hypercholesterolemia, chronic anemia who presented to [facility] with progressive dyspnea over several days with increasing bilateral lower extremity edema. Patient, in addition, reported orthopnea, but denied any paroxysmal nocturnal dyspnea. Patient denied any chest discomfort. Patient reported fatigue and tiredness. Patient denied any palpitations, dizziness, lightheadedness, or syncope. Left heart cardiac catheterization, coronary angiography performed January 09, 2019, revealed evidence of triple-vessel obstructive coronary artery disease with patent DRIVER to LAD, obstructive lesion in SVG graft to RPDA (not intervened upon), post percutaneous coronary intervention on ute circumflex coronary artery. Upon evaluation in the emergency room, patient was noted to have evidence of congestive heart failure. In addition, patient was noted to have evidence of renal insufficiency. PAST MEDICAL HISTORY: Coronary artery disease, post myocardial infarction, post coronary artery bypass grafting, post multivessel percutaneous coronary intervention and stenting, angina pectoris, systolic/diastolic left ventricular dysfunction with chronic Class zero to 1 [place] Heart Association Classification left ventricular failure, hypertensive cardiovascular disease, hypercholesterolemia, chronic anemia. SOCIAL HISTORY: Prior smoker. FAMILY HISTORY: Positive for coronary artery disease. ALLERGIES: SULFA. MEDICAL THERAPY AT HOME: Ecotrin 81 mg once a day; Plavix 75 mg once a day; Zoloft 25 mg once a day; Toprol-XL 200 mg once a day; Imdur 60 mg once a day. REVIEW OF SYSTEMS: Head/Neck: He denies headache, photophobia, blurring of vision. Respiratory: No cough or sputum production. Cardiovascular: As noted above. Gastrointestinal: He denied nausea, vomiting, diarrhea, abdominal discomfort. Genitourinary: No symptoms reported. Musculoskeletal: No symptoms reported. PHYSICAL EXAMINATION: Vital Signs: Blood pressure is 106/50 mmHg, pulse rate is 56 beats/min. Head/Neck: Pupils equal and reactive to light and accommodation. Extraocular muscles are intact. Anicteric sclerae. Negative JVD. No bruit appreciated. Chest: Diminished breath sounds at the bases bilaterally. Cardiovascular: S1, S2 regular. Grade 1/6 to 2/6 systolic ejection murmur. No clicks or gallops. Abdomen: Soft, benign, normoactive bowel sounds. Extremities: Bilateral 1+ edema, diminished distal pulses. No calf tenderness. Electrocardiogram reveals sinus rhythm with premature ventricular contraction, left axis deviation, inferior wall myocardial infarction age undetermined, right bundle branch block. Chest x-ray report was noted. No evidence of congestive heart failure, no evidence of pulmonary infiltrates, no pneumothorax. CBC revealed a white cell count of 4.8, hemoglobin 9.6, platelet count 153. INR 1.19. Sodium 140, potassium 4.4, BUN 30.3, creatinine 1.3, estimated GFR 52.63, glucose 87. Troponin less than 0.02. BNP 1016.6. Echocardiography performed January 10, 2019, revealed mild to moderate reduction in left ventricular systolic function with estimated LVEF between 40% and 45%, left atrial dilatation, and trace mitral valve regurgitation. Left heart cardiac catheterization, coronary angiography as noted above. Pharmacologic myocardial perfusion imaging study performed November 27, 2018, revealed a large-size inferolateral and anterolateral wall defect compatible with ischemia with zone of infarct, moderate side anterior apical wall defect compatible with ischemia with calculated LVEF of 54%, probably overestimated. ASSESSMENT: 1. Clinical presentation consistent with [id number] Class 1 to 2 [place] Heart Association Classification left ventricular failure related to systolic/diastolic left ventricular dysfunction. 2. Coronary artery disease, post myocardial infarction, post coronary artery bypass grafting, post multivessel percutaneous coronary intervention and stenting, residual disease, angina pectoris. 3. Hypertensive cardiovascular disease. 4. Hypercholesterolemia. 5. Chronic kidney disease with acute exacerbation. 6. Anemia. RECOMMENDATIONS: 1. Change Toprol-XL to carvedilol at 25 mg twice daily. 2. Ideally, WENDY inhibitor or angiotensin receptor florinda therapy initiation is recommended, provided renal function stabilizes/at baseline. 3. Diuretics with caution, Lasix and consideration for addition of aldactone therapy, provided renal function stabilizes/at baseline. 4. Continuation of Lipitor therapy. 5. Continuation of Ecotrin and Plavix therapies with caution and close monitoring of hemoglobin level. 6. Echocardiography for evaluation of left ventricular systolic function and valvular function. 7. Patient was strongly counseled on diabetic compliance, including caloric restriction, weight reduction. Thank you for the kind referral. EL MEJIA M.D. GILES/[id number]
[2019-02-19] MEDS: CARVEDILOL 25 MG TABLET (FP) PO SCH (21:10)
[2019-02-19] MEDS: ATORVASTATIN CA 20 MG TABLET (FP) PO SCH (21:10)
[2019-02-20] MEDS: ALBUTEROL SO4 2.5/IPRATROPIUM 0.5 INH SOL 3 ML VIAL.NEB. NEB SCH ×4 (07:35→20:11)
[2019-02-20 08:02] LABS: BASO % 0.5 % (0-2.0); EOS % 1.4 % (0-4.5); HEMATOCRIT 31.5 % (35.4-49); HEMOGLOBIN 10.2 GM/dL (11.7-16.9); LYMPH % 29.4 % (8-40); MCH 32.6 pg (25.7-33.7); MCHC 32.5 g/dl (32.0-35.9); MEAN CELL VOLUME 100.4 fl (80-96); MEAN PLT VOLUME 9.1 fl (7.5-11.1); MONO % 8.4 % (3.8-10.2); NEUT % 60.3 % (42.8-82.8); PLATELET COUNT 158 K/MM3 (134-434); RBC 3.14 M/mm3 (4.00-5.60); RDW 14.9 % (11.9-15.9); WHITE BLOOD COUNT 4.8 K/mm3 (4.0-10.0)
[2019-02-20 08:10] LABS: BLOOD UREA NITROGEN 29.5 mg/dL (7-18); CALCIUM 8.9 mg/dL (8.5-10.1); POTASSIUM 5.2 mmol/L (3.5-5.1)
[2019-02-20] MEDS: CLOPIDOGREL BISULFATE 75 MG TABLET (FP) PO SCH (09:43)
[2019-02-20] MEDS: FUROSEMIDE 40 MG/4 ML INJECTABLE VIAL IVPUSH SCH (09:43)
[2019-02-20] MEDS: ASPIRIN COATED 81 MG TABLET.EC PO SCH (09:47)
[2019-02-20] MEDS: CARVEDILOL 25 MG TABLET (FP) PO SCH ×2 (09:47→21:34)
[2019-02-20] MEDS: SERTRALINE HCL 25 MG TABLET (FP) PO SCH (09:47)
[2019-02-20] MEDS: ISOSORBIDE MONONITRATE 60 MG TAB.SR.24H (FP) PO SCH (09:48)
[2019-02-20] MEDS: HEPARIN NA (PORCINE) 5,000 UNITS/ML 1ML VIAL SQ SCH ×2 (09:49→21:34)
--- NOTE | 2019-02-20 11:16 | PN ---
Progress Note, Physician History of Present Illness: PULMONARY ALERT,FEELING BETTER,DYSPNEA IMPROVING - Current Medication List Current Medications: Active Medications Albuterol/Ipratropium (Duoneb -) 1 amp NEB RQID [facility] Last Admin: 02/20/19 07:35 Dose: 1 amp Aspirin (Ecotrin -) 81 mg PO DAILY [facility] Last Admin: 02/20/19 09:47 Dose: 81 mg Atorvastatin Calcium (Lipitor -) 20 mg PO HS [facility] Last Admin: 02/19/19 21:10 Dose: 20 mg Carvedilol (Coreg -) 25 mg PO BID [facility] Last Admin: 02/20/19 09:47 Dose: 25 mg Clopidogrel Bisulfate (Plavix -) 75 mg PO DAILY [facility] Last Admin: 02/20/19 09:43 Dose: 75 mg Furosemide (Lasix Injection -) 40 mg IVPUSH DAILY [facility] Last Admin: 02/20/19 09:43 Dose: 40 mg Heparin Sodium (Porcine) (Heparin -) 5,000 unit SQ BID [facility] Last Admin: 02/20/19 09:49 Dose: 5,000 unit Isosorbide Mononitrate (Imdur -) 60 mg PO DAILY [facility] Last Admin: 02/20/19 09:48 Dose: 60 mg Sertraline HCl (Zoloft -) 25 mg PO DAILY [facility] Last Admin: 02/20/19 09:47 Dose: 25 mg - Objective Vital Signs: Vital Signs Temperature 97.9 F 02/20/19 09:00 Pulse Rate 60 02/20/19 09:00 Respiratory Rate 22 H 02/20/19 09:00 Blood Pressure 135/78 02/20/19 09:00 O2 Sat by Pulse Oximetry (%) 98 02/20/19 08:39 Constitutional: Yes: Well Nourished, Obese Eyes: Yes: WNL HENT: Yes: WNL Cardiovascular: Yes: Regular Rate and Rhythm, S1, S2 Respiratory: Yes: Diminished Gastrointestinal: Yes: Normal Bowel Sounds, Soft Extremities: Yes: WNL Edema: No Labs: CBC, BMP 02/20/19 06:51 02/20/19 06:51 INR, PTT INR 1.19 (0.83-1.09) H 02/18/19 16:41 Problem List - Problems (1) Acute respiratory failure with hypoxia and hypercapnia Code(s): J96.01 - ACUTE RESPIRATORY FAILURE WITH HYPOXIA; J96.02 - ACUTE RESPIRATORY FAILURE WITH HYPERCAPNIA (2) CHF exacerbation Code(s): I50.9 - HEART FAILURE, UNSPECIFIED (3) Shortness of breath Code(s): R06.02 - SHORTNESS OF BREATH (4) CAD (coronary artery disease) Code(s): I25.10 - ATHSCL HEART DISEASE OF [place] CORONARY ARTERY W/O ANG PCTRS Qualifiers: (5) Hyperlipidemia Code(s): E78.5 - HYPERLIPIDEMIA, UNSPECIFIED Qualifiers: (6) Status post coronary artery bypass graft Code(s): Z95.1 - PRESENCE OF AORTOCORONARY BYPASS GRAFT (7) Sleep apnea Code(s): G47.30 - SLEEP APNEA, UNSPECIFIED (8) Diastolic dysfunction without heart failure Code(s): I51.9 - HEART DISEASE, UNSPECIFIED (9) Morbid obesity Code(s): E66.01 - MORBID (SEVERE) OBESITY DUE TO EXCESS CALORIES Assessment/Plan IMP ACUTE HYPOXEMIC/LIKELY CHRONIC HYPERCAPNEIC RESPIRATORY FAILURE IMPROVING ACUTE ON CHRONIC CHF COPD ASHD S/P CABG 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 H/O LIVER TRANSPLANT CHRONIC HEP C ANEMIA MORBID OBESITY PLAN LASIX SUPPLEMENTAL O2 INHALED BRONCHODILATORS BIPAP AT NIGHT AND PRN DAILY WTS AMBULATORY O2 SAT PRIOR TO DISCHARGE TO DETERMINE IF PT IS A CANDIDATE FOR HOME O2 YEARLY LOW DOSE CHEST CT FOR LUNG CANCER SCREENING MONITOR LYTES,H+H NORMAL TRANSFUSION THRESHOLD DR CRUMP Problem List - Problems (1) Acute respiratory failure with hypoxia and hypercapnia Code(s): J96.01 - ACUTE RESPIRATORY FAILURE WITH HYPOXIA; J96.02 - ACUTE RESPIRATORY FAILURE WITH HYPERCAPNIA (2) CHF exacerbation Code(s): I50.9 - HEART FAILURE, UNSPECIFIED (3) Shortness of breath Code(s): R06.02 - SHORTNESS OF BREATH (4) CAD (coronary artery disease) Code(s): I25.10 - ATHSCL HEART DISEASE OF [place] CORONARY ARTERY W/O ANG PCTRS Qualifiers: (5) Hyperlipidemia Code(s): E78.5 - HYPERLIPIDEMIA, UNSPECIFIED Qualifiers: (6) Status post coronary artery bypass graft Code(s): Z95.1 - PRESENCE OF AORTOCORONARY BYPASS GRAFT (7) Sleep apnea Code(s): G47.30 - SLEEP APNEA, UNSPECIFIED (8) Diastolic dysfunction without heart failure Code(s): I51.9 - HEART DISEASE, UNSPECIFIED (9) Morbid obesity Code(s): E66.01 - MORBID (SEVERE) OBESITY DUE TO EXCESS CALORIES
--- NOTE | 2019-02-20 11:48 | PN ---
Progress Note, Physician History of Present Illness: STILL HAS SOB - Current Medication List Current Medications: Active Medications Albuterol/Ipratropium (Duoneb -) 1 amp NEB RQID [facility] Last Admin: 02/20/19 11:32 Dose: 1 amp Aspirin (Ecotrin -) 81 mg PO DAILY [facility] Last Admin: 02/20/19 09:47 Dose: 81 mg Atorvastatin Calcium (Lipitor -) 20 mg PO HS [facility] Last Admin: 02/19/19 21:10 Dose: 20 mg Carvedilol (Coreg -) 25 mg PO BID [facility] Last Admin: 02/20/19 09:47 Dose: 25 mg Clopidogrel Bisulfate (Plavix -) 75 mg PO DAILY [facility] Last Admin: 02/20/19 09:43 Dose: 75 mg Furosemide (Lasix Injection -) 40 mg IVPUSH DAILY [facility] Last Admin: 02/20/19 09:43 Dose: 40 mg Heparin Sodium (Porcine) (Heparin -) 5,000 unit SQ BID [facility] Last Admin: 02/20/19 09:49 Dose: 5,000 unit Isosorbide Mononitrate (Imdur -) 60 mg PO DAILY [facility] Last Admin: 02/20/19 09:48 Dose: 60 mg Sertraline HCl (Zoloft -) 25 mg PO DAILY [facility] Last Admin: 02/20/19 09:47 Dose: 25 mg - Objective Vital Signs: Vital Signs Temperature 97.9 F 02/20/19 09:00 Pulse Rate 60 02/20/19 09:00 Respiratory Rate 22 H 02/20/19 09:00 Blood Pressure 135/78 02/20/19 09:00 O2 Sat by Pulse Oximetry (%) 98 02/20/19 08:39 Constitutional: Yes: No Distress HENT: Yes: Atraumatic Neck: Yes: Supple Cardiovascular: Yes: Regular Rate and Rhythm Respiratory: Yes: Rhonchi, Wheezes Gastrointestinal: Yes: Normal Bowel Sounds Extremities: Yes: WNL Edema: Yes Edema: LLE: Trace, RLE: Trace Neurological: Yes: Alert, Oriented Labs: CBC, BMP 02/20/19 06:51 02/20/19 06:51 INR, PTT INR 1.19 (0.83-1.09) H 02/18/19 16:41 Problem List - Problems (1) BiPAP (biphasic positive airway pressure) dependence Assessment/Plan: iv steroids Code(s): Z99.89 - DEPENDENCE ON OTHER ENABLING MACHINES AND DEVICES (2) CHF exacerbation Assessment/Plan: continue home meds iv lasix Code(s): I50.9 - HEART FAILURE, UNSPECIFIED Qualifiers: Heart failure type: combined systolic and diastolic Qualified Code(s): I50.43 - Acute on chronic combined systolic (congestive) and diastolic ( congestive) heart failure (3) CAD (coronary artery disease) Code(s): I25.10 - ATHSCL HEART DISEASE OF [place] CORONARY ARTERY W/O ANG PCTRS Qualifiers: Coronary Disease-Associated Artery/Lesion type: [place] artery [place] vs. transplanted heart: [place] heart Associated angina: without angina Qualified Code(s): I25.10 - Atherosclerotic heart disease of [place] coronary artery without angina pectoris (4) HTN (hypertension) Assessment/Plan: onm eds monitor Code(s): I10 - ESSENTIAL (PRIMARY) HYPERTENSION Qualifiers: Hypertension type: essential hypertension Qualified Code(s): I10 - Essential (primary) hypertension (5) Hyperlipidemia Assessment/Plan: on lipitor Code(s): E78.5 - HYPERLIPIDEMIA, UNSPECIFIED Qualifiers: Hyperlipidemia type: pure hypercholesterolemia Qualified Code(s): E78.00 - Pure hypercholesterolemia, unspecified; E78.0 - Pure hypercholesterolemia
--- NOTE | 2019-02-20 14:22 | ECHO ---
Name: MAUREEN MILLER Exam:Adult Echocardiogram Study Date: 02/20/2019 11:14 AM Age: 78 yrs Reason For Study: LV SYSTOLIC DYSFUNCTION WITH CHF Height: 66 in Weight: 281 lb BSA: 2.3 m2 MMode/2D Measurements & Calculations IVSd: 1.0 cm Ao root diam: 2.6 cm LVIDd: 6.2 cm LA dimension: 3.6 cm LVIDs: 4.4 cm LVPWd: 0.94 cm IVSs: 1.4 cm EDV(Teich): 193.2 ml LVOT diam: 2.0 cm ESV(Teich): 89.3 ml Doppler Measurements & Calculations MV E max jluis: 81.8 cm/sec Ao V2 max: 194.3 cm/sec MV A max jluis: 79.4 cm/sec Ao max P.1 mmHg MV E/A: 1.0 Ao V2 mean: 130.4 cm/sec MV dec time: 0.18 sec Ao mean P.9 mmHg Ao V2 VTI: 40.9 cm LIBBY(I,D): 1.8 cm2 LIBBY(V,D): 1.6 cm2 LV V1 max P.8 mmHg MR max jluis: 425.2 cm/sec LV V1 mean P.4 mmHg MR max P.5 mmHg LV V1 max: 97.4 cm/sec LV V1 mean: 73.6 cm/sec LV V1 VTI: 23.3 cm SV(LVOT): 74.0 ml TR max jluis: 254.1 cm/sec TR max P.8 mmHg Med Peak E' Jluis: 6.2 cm/sec Med E/e': 13.1 Lat Peak E' Jluis: 4.5 cm/sec Lat E/e': 18.2 Procedure The study was technically difficult with many images being suboptimal in quality. Left Ventricle The left ventricle is moderately dilated. Left ventricular systolic function is mild to moderately re duced. There is mild to moderate global hypokinesis of the left ventricle. Regional wall motion abnormalitie s cannot be excluded due to limited visualization. Septal motion is consistent with conduction abnormality. Right Ventricle The right ventricle is not well visualized. Atria Normal left and right atrial size and function. Mitral Valve There is no mitral valve stenosis. There is mild mitral regurgitation. Tricuspid Valve The tricuspid valve is not well visualized. There is no tricuspid stenosis. There is Trace to mild tr icuspid regurgitation. Right ventricular systolic pressure is normal. Aortic Valve The aortic valve is not well visualized. No hemodynamically significant valvular aortic stenosis. No aortic regurgitation is present. Pulmonic Valve The pulmonic valve is not well visualized. Great Vessels The aortic root is normal size. Pericardium/Pleura There is no pericardial effusion. Interpretation Summary The study was technically difficult with many images being suboptimal in quality. The left ventricle is moderately dilated. Regional wall motion abnormalities cannot be excluded due to limited visualization. Left ventricular systolic function is mild to moderately reduced. There is mild to moderate global hypokinesis of the left ventricle. Septal motion is consistent with conduction abnormality. There is mild mitral regurgitation. There is Trace to mild tricuspid regurgitation. Right ventricular systolic pressure is normal. MD Eh Miller 02/20/2019 02:22 PM
--- NOTE | 2019-02-20 19:25 | PN ---
Progress Note, Physician History of Present Illness: Dyspnea and LE edema improving, denies chest pain. - Current Medication List Current Medications: Active Medications Albuterol/Ipratropium (Duoneb -) 1 amp NEB RQID [facility] Last Admin: 02/20/19 15:40 Dose: 1 amp Aspirin (Ecotrin -) 81 mg PO DAILY [facility] Last Admin: 02/20/19 09:47 Dose: 81 mg Atorvastatin Calcium (Lipitor -) 20 mg PO HS [facility] Last Admin: 02/19/19 21:10 Dose: 20 mg Carvedilol (Coreg -) 25 mg PO BID [facility] Last Admin: 02/20/19 09:47 Dose: 25 mg Clopidogrel Bisulfate (Plavix -) 75 mg PO DAILY [facility] Last Admin: 02/20/19 09:43 Dose: 75 mg Furosemide (Lasix Injection -) 40 mg IVPUSH DAILY [facility] Last Admin: 02/20/19 09:43 Dose: 40 mg Heparin Sodium (Porcine) (Heparin -) 5,000 unit SQ BID [facility] Last Admin: 02/20/19 09:49 Dose: 5,000 unit Isosorbide Mononitrate (Imdur -) 60 mg PO DAILY [facility] Last Admin: 02/20/19 09:48 Dose: 60 mg Sertraline HCl (Zoloft -) 25 mg PO DAILY [facility] Last Admin: 02/20/19 09:47 Dose: 25 mg - Objective Vital Signs: Vital Signs Temperature 98 F 02/20/19 14:00 Pulse Rate 60 02/20/19 14:00 Respiratory Rate 20 02/20/19 14:00 Blood Pressure 116/70 02/20/19 14:00 O2 Sat by Pulse Oximetry (%) 98 02/20/19 08:39 Constitutional: Yes: No Distress, Calm Neck: Yes: Supple Cardiovascular: Yes: Regular Rate and Rhythm Respiratory: Yes: Regular, Diminished, On Nasal O2 Gastrointestinal: Yes: Normal Bowel Sounds, Soft Edema: Yes Edema: LLE: Trace, RLE: Trace Labs: CBC, BMP 02/20/19 06:51 02/20/19 06:51 INR, PTT INR 1.19 (0.83-1.09) H 02/18/19 16:41 Problem List - Problems (1) Acute respiratory failure with hypoxia and hypercapnia Code(s): J96.01 - ACUTE RESPIRATORY FAILURE WITH HYPOXIA; J96.02 - ACUTE RESPIRATORY FAILURE WITH HYPERCAPNIA (2) CHF exacerbation Code(s): I50.9 - HEART FAILURE, UNSPECIFIED Qualifiers: Heart failure type: combined systolic and diastolic Qualified Code(s): I50.43 - Acute on chronic combined systolic (congestive) and diastolic ( congestive) heart failure (3) Shortness of breath Code(s): R06.02 - SHORTNESS OF BREATH (4) Sleep apnea Code(s): G47.30 - SLEEP APNEA, UNSPECIFIED Qualifiers: Sleep apnea type: obstructive Qualified Code(s): G47.33 - Obstructive sleep apnea (adult) (pediatric) (5) CAD (coronary artery disease) Code(s): I25.10 - ATHSCL HEART DISEASE OF [place] CORONARY ARTERY W/O ANG PCTRS Qualifiers: Coronary Disease-Associated Artery/Lesion type: [place] artery [place] vs. transplanted heart: [place] heart Associated angina: without angina Qualified Code(s): I25.10 - Atherosclerotic heart disease of [place] coronary artery without angina pectoris (6) HTN (hypertension) Code(s): I10 - ESSENTIAL (PRIMARY) HYPERTENSION Qualifiers: Hypertension type: essential hypertension Qualified Code(s): I10 - Essential (primary) hypertension (7) Hyperlipidemia Code(s): E78.5 - HYPERLIPIDEMIA, UNSPECIFIED Qualifiers: Hyperlipidemia type: pure hypercholesterolemia Qualified Code(s): E78.00 - Pure hypercholesterolemia, unspecified; E78.0 - Pure hypercholesterolemia (8) Status post coronary artery bypass graft Code(s): Z95.1 - PRESENCE OF AORTOCORONARY BYPASS GRAFT (9) Status post coronary artery stent placement Code(s): Z95.5 - PRESENCE OF CORONARY ANGIOPLASTY IMPLANT AND GRAFT Assessment/Plan 02/20/2019 Echo: Mod dilated LV with mild-mod decreased LV fxn, mild MR, tr- mild TR 02/19/2019 Mild centrilobular emphysema Echocardiography performed January 10, 2019 revealed mild to moderate reduction in left ventricular systolic function with estimated LVEF between 40-45%, mild left atrial dilatation, poorly visualize right ventricle but grossly normal in size, mild thickening of the mitral valve leaflets with trace mitral valve regurgitation Left heart cardiac catheterization coronary angiography January 09, 2019 revealed triple vessel obstructive coronary artery disease, left main distal 30% diameter stenosis, mid LAD 100% diameter stenosis, proximal LCx 60% diameter stenosis, LCx OM 100% diameter stenosis (post intervention), proximal RCA 100% diameter stenosis, patent DRIVER to mid LAD, SVG to RPDA distal SVG anastomotic stenosis Pharmacologic myocardial perfusion imaging study performed November 27, 2018 revealed large size infero-lateral and hien-lateral wall defect compatible with ischemia with zone of infarct moderate size hien-apical wall defect compatible with ischemia, calculated LV EF of 54%overestimated 1. Acute on chronic class I-II [place] Heart Association classification left ventricular failure related to systolic/diastolic left ventricular dysfunction 2. Coronary artery disease post myocardial infarction post coronary artery bypass grafting post multi-vessel percutaneous coronary intervention/stenting residual disease angina pectoris 3. Hypertensive cardiovascular disease 4. Hypercholesterolemia 5. Chronic kidney disease 6. Anemia 7. COPD 8. OSAS on cpap PLAN: 1. Continue Coreg 25 mg bid, ASA 81 qd, Lipitor 20 qhs, Plavix 75 qd, Imdur 60 qd 2. Ideally WENDY inhibitor or angiotensin receptor florinda therapy initiation is recommended provided renal function stabilizes to baseline and hyperkalemia corrects 3. IV diuresis with monitor diuretic response, renal fxn and electrolytes 4. BD, O2, bipap nightly and as needed 5. Patient was strongly counseled dietary compliance including caloric restriction- weight reduction 6. F/u with Dr. 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 DVT prophylaxis
[2019-02-20] MEDS: ATORVASTATIN CA 20 MG TABLET (FP) PO SCH (21:34)
[2019-02-21] MEDS: ALBUTEROL SO4 2.5/IPRATROPIUM 0.5 INH SOL 3 ML VIAL.NEB. NEB SCH ×4 (07:45→20:31)
--- NOTE | 2019-02-21 09:16 | PN ---
Progress Note, Physician History of Present Illness: Dyspnea and LE edema improving, denies chest pain. - Current Medication List Current Medications: Active Medications Albuterol/Ipratropium (Duoneb -) 1 amp NEB RQID [facility] Last Admin: 02/21/19 07:45 Dose: 1 amp Aspirin (Ecotrin -) 81 mg PO DAILY [facility] Last Admin: 02/20/19 09:47 Dose: 81 mg Atorvastatin Calcium (Lipitor -) 20 mg PO HS [facility] Last Admin: 02/20/19 21:34 Dose: 20 mg Carvedilol (Coreg -) 25 mg PO BID [facility] Last Admin: 02/20/19 21:34 Dose: 25 mg Clopidogrel Bisulfate (Plavix -) 75 mg PO DAILY [facility] Last Admin: 02/20/19 09:43 Dose: 75 mg Furosemide (Lasix Injection -) 40 mg IVPUSH DAILY [facility] Last Admin: 02/20/19 09:43 Dose: 40 mg Heparin Sodium (Porcine) (Heparin -) 5,000 unit SQ BID [facility] Last Admin: 02/20/19 21:34 Dose: 5,000 unit Isosorbide Mononitrate (Imdur -) 60 mg PO DAILY [facility] Last Admin: 02/20/19 09:48 Dose: 60 mg Sertraline HCl (Zoloft -) 25 mg PO DAILY [facility] Last Admin: 02/20/19 09:47 Dose: 25 mg - Objective Vital Signs: Vital Signs Temperature 97.9 F 02/21/19 06:00 Pulse Rate 61 02/21/19 06:00 Respiratory Rate 18 02/21/19 06:00 Blood Pressure 146/63 02/21/19 06:00 O2 Sat by Pulse Oximetry (%) 96 02/20/19 21:00 Constitutional: Yes: No Distress, Calm Neck: Yes: Supple Cardiovascular: Yes: Regular Rate and Rhythm Respiratory: Yes: Regular, Diminished, On Nasal O2 Gastrointestinal: Yes: Normal Bowel Sounds, Soft Edema: Yes Edema: LLE: Trace, RLE: Trace Labs: CBC, BMP 02/20/19 06:51 02/20/19 06:51 INR, PTT INR 1.19 (0.83-1.09) H 02/18/19 16:41 - ....Imaging EKG: Report Reviewed (Tele: [facility]) Problem List - Problems (1) Acute respiratory failure with hypoxia and hypercapnia Code(s): J96.01 - ACUTE RESPIRATORY FAILURE WITH HYPOXIA; J96.02 - ACUTE RESPIRATORY FAILURE WITH HYPERCAPNIA (2) CHF exacerbation Code(s): I50.9 - HEART FAILURE, UNSPECIFIED Qualifiers: Heart failure type: combined systolic and diastolic Qualified Code(s): I50.43 - Acute on chronic combined systolic (congestive) and diastolic ( congestive) heart failure (3) Shortness of breath Code(s): R06.02 - SHORTNESS OF BREATH (4) Sleep apnea Code(s): G47.30 - SLEEP APNEA, UNSPECIFIED Qualifiers: Sleep apnea type: obstructive Qualified Code(s): G47.33 - Obstructive sleep apnea (adult) (pediatric) (5) CAD (coronary artery disease) Code(s): I25.10 - ATHSCL HEART DISEASE OF [place] CORONARY ARTERY W/O ANG PCTRS Qualifiers: Coronary Disease-Associated Artery/Lesion type: [place] artery [place] vs. transplanted heart: [place] heart Associated angina: without angina Qualified Code(s): I25.10 - Atherosclerotic heart disease of [place] coronary artery without angina pectoris (6) HTN (hypertension) Code(s): I10 - ESSENTIAL (PRIMARY) HYPERTENSION Qualifiers: Hypertension type: essential hypertension Qualified Code(s): I10 - Essential (primary) hypertension (7) Hyperlipidemia Code(s): E78.5 - HYPERLIPIDEMIA, UNSPECIFIED Qualifiers: Hyperlipidemia type: pure hypercholesterolemia Qualified Code(s): E78.00 - Pure hypercholesterolemia, unspecified; E78.0 - Pure hypercholesterolemia (8) Status post coronary artery bypass graft Code(s): Z95.1 - PRESENCE OF AORTOCORONARY BYPASS GRAFT (9) Status post coronary artery stent placement Code(s): Z95.5 - PRESENCE OF CORONARY ANGIOPLASTY IMPLANT AND GRAFT Assessment/Plan 02/20/2019 Echo: Mod dilated LV with mild-mod decreased LV fxn, mild MR, tr- mild TR 02/19/2019 Mild centrilobular emphysema Echocardiography performed January 10, 2019 revealed mild to moderate reduction in left ventricular systolic function with estimated LVEF between 40-45%, mild left atrial dilatation, poorly visualize right ventricle but grossly normal in size, mild thickening of the mitral valve leaflets with trace mitral valve regurgitation Left heart cardiac catheterization coronary angiography January 09, 2019 revealed triple vessel obstructive coronary artery disease, left main distal 30% diameter stenosis, mid LAD 100% diameter stenosis, proximal LCx 60% diameter stenosis, LCx OM 100% diameter stenosis (post intervention), proximal RCA 100% diameter stenosis, patent DRIVER to mid LAD, SVG to RPDA distal SVG anastomotic stenosis Pharmacologic myocardial perfusion imaging study performed November 27, 2018 revealed large size infero-lateral and hien-lateral wall defect compatible with ischemia with zone of infarct moderate size hien-apical wall defect compatible with ischemia, calculated LV EF of 54% overestimated 1. Acute on chronic class I-II [place] [employer] classification left ventricular failure related to systolic/diastolic left ventricular dysfunction 2. Coronary artery disease post myocardial infarction post coronary artery bypass grafting post multi-vessel percutaneous coronary intervention/stenting residual disease angina pectoris 3. Hypertensive cardiovascular disease 4. Hypercholesterolemia 5. Chronic kidney disease 6. Anemia 7. COPD 8. OSAS on cpap PLAN: 1. Continue Coreg 25 mg bid, ASA 81 qd, Lipitor 20 qhs, Plavix 75 qd, Imdur 60 qd 2. Ideally WENDY inhibitor or angiotensin receptor [place] therapy initiation is recommended provided renal function stabilizes to baseline and hyperkalemia corrects 3. IV diuresis with monitor diuretic response, renal fxn and electrolytes 4. BD, O2, bipap nightly and as needed, PT as tolerated 5. Patient was strongly counseled dietary compliance including caloric restriction- weight reduction 6. F/u with Dr. Arash Hanson at [facility] for RCA SUPERVISOR TREE TRIMMING PCI once stable 7. DVT prophylaxis
[2019-02-21] MEDS: SERTRALINE HCL 25 MG TABLET (FP) PO SCH (10:56)
[2019-02-21] MEDS: ASPIRIN COATED 81 MG TABLET.EC PO SCH (10:56)
[2019-02-21] MEDS: CLOPIDOGREL BISULFATE 75 MG TABLET (FP) PO SCH (10:56)
[2019-02-21] MEDS: CARVEDILOL 25 MG TABLET (FP) PO SCH ×2 (10:56→22:40)
[2019-02-21] MEDS: HEPARIN NA (PORCINE) 5,000 UNITS/ML 1ML VIAL SQ SCH ×2 (10:56→22:40)
[2019-02-21] MEDS: FUROSEMIDE 40 MG/4 ML INJECTABLE VIAL IVPUSH SCH (10:56)
[2019-02-21] MEDS: ISOSORBIDE MONONITRATE 60 MG TAB.SR.24H (FP) PO SCH (10:56)
--- NOTE | 2019-02-21 12:23 | PN ---
Progress Note, Physician History of Present Illness: pulmonary alert,sitting up in bed c/o increase sob with any exertion,-cp,-cough - Current Medication List Current Medications: Active Medications Albuterol/Ipratropium (Duoneb -) 1 amp NEB RQID [facility] Last Admin: 02/21/19 07:45 Dose: 1 amp Aspirin (Ecotrin -) 81 mg PO DAILY [facility] Last Admin: 02/21/19 10:56 Dose: 81 mg Atorvastatin Calcium (Lipitor -) 20 mg PO HS [facility] Last Admin: 02/20/19 21:34 Dose: 20 mg Carvedilol (Coreg -) 25 mg PO BID [facility] Last Admin: 02/21/19 10:56 Dose: 25 mg Clopidogrel Bisulfate (Plavix -) 75 mg PO DAILY [facility] Last Admin: 02/21/19 10:56 Dose: 75 mg Furosemide (Lasix Injection -) 40 mg IVPUSH DAILY [facility] Last Admin: 02/21/19 10:56 Dose: 40 mg Heparin Sodium (Porcine) (Heparin -) 5,000 unit SQ BID [facility] Last Admin: 02/21/19 10:56 Dose: 5,000 unit Isosorbide Mononitrate (Imdur -) 60 mg PO DAILY [facility] Last Admin: 02/21/19 10:56 Dose: 60 mg Sertraline HCl (Zoloft -) 25 mg PO DAILY [facility] Last Admin: 02/21/19 10:56 Dose: 25 mg - Objective Vital Signs: Vital Signs Temperature 97.9 F 02/21/19 06:00 Pulse Rate 61 02/21/19 06:00 Respiratory Rate 18 02/21/19 06:00 Blood Pressure 146/63 02/21/19 06:00 O2 Sat by Pulse Oximetry (%) 96 02/20/19 21:00 Constitutional: Yes: Calm, Obese Eyes: Yes: WNL HENT: Yes: WNL Neck: Yes: WNL Cardiovascular: Yes: Regular Rate and Rhythm, S1, S2 Respiratory: Yes: Diminished Gastrointestinal: Yes: Normal Bowel Sounds, Soft Extremities: Yes: WNL Edema: Yes Labs: CBC, BMP Problem List - Problems (1) Acute respiratory failure with hypoxia and hypercapnia Code(s): J96.01 - ACUTE RESPIRATORY FAILURE WITH HYPOXIA; J96.02 - ACUTE RESPIRATORY FAILURE WITH HYPERCAPNIA (2) CHF exacerbation Code(s): I50.9 - HEART FAILURE, UNSPECIFIED Qualifiers: Heart failure type: combined systolic and diastolic Qualified Code(s): I50.43 - Acute on chronic combined systolic (congestive) and diastolic ( congestive) heart failure (3) Shortness of breath Code(s): R06.02 - SHORTNESS OF BREATH (4) CAD (coronary artery disease) Code(s): I25.10 - ATHSCL HEART DISEASE OF [place] CORONARY ARTERY W/O ANG PCTRS Qualifiers: Coronary Disease-Associated Artery/Lesion type: [place] artery [place] vs. transplanted heart: [place] heart Associated angina: without angina Qualified Code(s): I25.10 - Atherosclerotic heart disease of [place] coronary artery without angina pectoris (5) Hyperlipidemia Code(s): E78.5 - HYPERLIPIDEMIA, UNSPECIFIED Qualifiers: Hyperlipidemia type: pure hypercholesterolemia Qualified Code(s): E78.00 - Pure hypercholesterolemia, unspecified; E78.0 - Pure hypercholesterolemia (6) Status post coronary artery bypass graft Code(s): Z95.1 - PRESENCE OF AORTOCORONARY BYPASS GRAFT (7) Sleep apnea Code(s): G47.30 - SLEEP APNEA, UNSPECIFIED Qualifiers: Sleep apnea type: obstructive Qualified Code(s): G47.33 - Obstructive sleep apnea (adult) (pediatric) (8) Diastolic dysfunction without heart failure Code(s): I51.9 - HEART DISEASE, UNSPECIFIED (9) Morbid obesity Code(s): E66.01 - MORBID (SEVERE) OBESITY DUE TO EXCESS CALORIES Assessment/Plan IMP ACUTE HYPOXEMIC/LIKELY CHRONIC HYPERCAPNEIC RESPIRATORY FAILURE ACUTE ON CHRONIC CHF COPD ASHD S/P CABG 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 H/O LIVER TRANSPLANT CHRONIC HEP C ANEMIA MORBID OBESITY PLAN LASIX SUPPLEMENTAL O2 INHALED BRONCHODILATORS BIPAP AT NIGHT AND PRN DAILY [facility]TS AMBULATORY O2 SAT PRIOR TO DISCHARGE TO DETERMINE IF PT IS A CANDIDATE FOR HOME O2 YEARLY LOW DOSE CHEST CT FOR LUNG CANCER SCREENING MONITOR THANG,H+H DR CRUMP Problem List - Problems (1) Acute respiratory failure with hypoxia and hypercapnia Code(s): J96.01 - ACUTE RESPIRATORY FAILURE WITH HYPOXIA; J96.02 - ACUTE RESPIRATORY FAILURE WITH HYPERCAPNIA (2) CHF exacerbation Code(s): I50.9 - HEART FAILURE, UNSPECIFIED (3) Shortness of breath Code(s): R06.02 - SHORTNESS OF BREATH (4) CAD (coronary artery disease) Code(s): I25.10 - ATHSCL HEART DISEASE OF [place] CORONARY ARTERY W/O ANG PCTRS Qualifiers: (5) Hyperlipidemia Code(s): E78.5 - HYPERLIPIDEMIA, UNSPECIFIED Qualifiers: (6) Status post coronary artery bypass graft Code(s): Z95.1 - PRESENCE OF AORTOCORONARY BYPASS GRAFT (7) Sleep apnea Code(s): G47.30 - SLEEP APNEA, UNSPECIFIED (8) Diastolic dysfunction without heart failure Code(s): I51.9 - HEART DISEASE, UNSPECIFIED (9) Morbid obesity Code(s): E66.01 - MORBID (SEVERE) OBESITY DUE TO EXCESS CALORIES
--- NOTE | 2019-02-21 17:02 | PN ---
Progress Note, Physician History of Present Illness: on bipap - Current Medication List Current Medications: Active Medications Albuterol/Ipratropium (Duoneb -) 1 amp NEB RQID [facility] Last Admin: 02/21/19 11:10 Dose: 1 amp Aspirin (Ecotrin -) 81 mg PO DAILY [facility] Last Admin: 02/21/19 10:56 Dose: 81 mg Atorvastatin Calcium (Lipitor -) 20 mg PO HS [facility] Last Admin: 02/20/19 21:34 Dose: 20 mg Carvedilol (Coreg -) 25 mg PO BID [facility] Last Admin: 02/21/19 10:56 Dose: 25 mg Clopidogrel Bisulfate (Plavix -) 75 mg PO DAILY [facility] Last Admin: 02/21/19 10:56 Dose: 75 mg Furosemide (Lasix Injection -) 40 mg IVPUSH DAILY [facility] Last Admin: 02/21/19 10:56 Dose: 40 mg Heparin Sodium (Porcine) (Heparin -) 5,000 unit SQ BID [facility] Last Admin: 02/21/19 10:56 Dose: 5,000 unit Isosorbide Mononitrate (Imdur -) 60 mg PO DAILY [facility] Last Admin: 02/21/19 10:56 Dose: 60 mg Sertraline HCl (Zoloft -) 25 mg PO DAILY [facility] Last Admin: 02/21/19 10:56 Dose: 25 mg - Objective Vital Signs: Vital Signs Temperature 98.7 F 02/21/19 14:00 Pulse Rate 57 L 02/21/19 14:00 Respiratory Rate 20 02/21/19 14:00 Blood Pressure 129/50 L 02/21/19 14:00 O2 Sat by Pulse Oximetry (%) 95 02/21/19 09:00 Constitutional: Yes: No Distress HENT: Yes: Atraumatic Neck: Yes: Supple Cardiovascular: Yes: Regular Rate and Rhythm Respiratory: Yes: Rhonchi Gastrointestinal: Yes: Normal Bowel Sounds Extremities: Yes: WNL Neurological: Yes: Alert, Oriented Labs: CBC, BMP 02/20/19 06:51 02/20/19 06:51 INR, PTT INR 1.19 (0.83-1.09) H 02/18/19 16:41 Problem List - Problems (1) BiPAP (biphasic positive airway pressure) dependence Code(s): Z99.89 - DEPENDENCE ON OTHER ENABLING MACHINES AND DEVICES (2) CHF exacerbation Assessment/Plan: continue home meds iv lasix Code(s): I50.9 - HEART FAILURE, UNSPECIFIED Qualifiers: Heart failure type: combined systolic and diastolic Qualified Code(s): I50.43 - Acute on chronic combined systolic (congestive) and diastolic ( congestive) heart failure (3) CAD (coronary artery disease) Code(s): I25.10 - ATHSCL HEART DISEASE OF [place] CORONARY ARTERY W/O ANG PCTRS Qualifiers: Coronary Disease-Associated Artery/Lesion type: [place] artery [place] vs. transplanted heart: [place] heart Associated angina: without angina Qualified Code(s): I25.10 - Atherosclerotic heart disease of [place] coronary artery without angina pectoris (4) HTN (hypertension) Assessment/Plan: onm eds monitor Code(s): I10 - ESSENTIAL (PRIMARY) HYPERTENSION Qualifiers: Hypertension type: essential hypertension Qualified Code(s): I10 - Essential (primary) hypertension (5) Hyperlipidemia Assessment/Plan: on lipitor Code(s): E78.5 - HYPERLIPIDEMIA, UNSPECIFIED Qualifiers: Hyperlipidemia type: pure hypercholesterolemia Qualified Code(s): E78.00 - Pure hypercholesterolemia, unspecified; E78.0 - Pure hypercholesterolemia
[2019-02-21] MEDS: ATORVASTATIN CA 20 MG TABLET (FP) PO SCH (22:40)
[2019-02-22] MEDS: ALBUTEROL SO4 2.5/IPRATROPIUM 0.5 INH SOL 3 ML VIAL.NEB. NEB SCH ×4 (08:04→21:05)
[2019-02-22] MEDS ORDERED: NITROGLYCERIN SUBLINGUAL 1/150 0.4 MG TAB ONE (08:58)
[2019-02-22] MEDS: ISOSORBIDE MONONITRATE 60 MG TAB.SR.24H (FP) PO SCH (10:33)
[2019-02-22] MEDS: CARVEDILOL 25 MG TABLET (FP) PO SCH ×2 (10:33→21:53)
[2019-02-22] MEDS: HEPARIN NA (PORCINE) 5,000 UNITS/ML 1ML VIAL SQ SCH ×2 (10:33→21:54)
[2019-02-22] MEDS: CLOPIDOGREL BISULFATE 75 MG TABLET (FP) PO SCH (10:33)
[2019-02-22] MEDS: SERTRALINE HCL 25 MG TABLET (FP) PO SCH (10:34)
[2019-02-22] MEDS: FUROSEMIDE 40 MG/4 ML INJECTABLE VIAL IVPUSH SCH (10:34)
[2019-02-22] MEDS: ASPIRIN COATED 81 MG TABLET.EC PO SCH (10:34)
--- NOTE | 2019-02-22 10:36 | PN ---
Progress Note, Physician History of Present Illness: Dyspnea and LE edema improving, episode of NTG-responsive chest tightness. - Current Medication List Current Medications: Active Medications Albuterol/Ipratropium (Duoneb -) 1 amp NEB RQID [facility] Last Admin: 02/22/19 08:04 Dose: 1 amp Aspirin (Ecotrin -) 81 mg PO DAILY [facility] Last Admin: 02/22/19 10:34 Dose: 81 mg Atorvastatin Calcium (Lipitor -) 20 mg PO HS [facility] Last Admin: 02/21/19 22:40 Dose: 20 mg Carvedilol (Coreg -) 25 mg PO BID [facility] Last Admin: 02/22/19 10:33 Dose: 25 mg Clopidogrel Bisulfate (Plavix -) 75 mg PO DAILY [facility] Last Admin: 02/22/19 10:33 Dose: 75 mg Furosemide (Lasix Injection -) 40 mg IVPUSH DAILY [facility] Last Admin: 02/22/19 10:34 Dose: 40 mg Heparin Sodium (Porcine) (Heparin -) 5,000 unit SQ BID [facility] Last Admin: 02/22/19 10:33 Dose: 5,000 unit Isosorbide Mononitrate (Imdur -) 60 mg PO DAILY [facility] Last Admin: 02/22/19 10:33 Dose: 60 mg Sertraline HCl (Zoloft -) 25 mg PO DAILY [facility] Last Admin: 02/22/19 10:34 Dose: 25 mg - Objective Vital Signs: Vital Signs Temperature 98.1 F 02/22/19 05:52 Pulse Rate 60 02/22/19 05:52 Respiratory Rate 17 02/22/19 05:52 Blood Pressure 126/74 02/22/19 05:52 O2 Sat by Pulse Oximetry (%) 100 02/21/19 21:00 Constitutional: Yes: No Distress, Calm Neck: Yes: Supple Cardiovascular: Yes: Regular Rate and Rhythm Respiratory: Yes: Regular, CTA Bilaterally, On Nasal O2 Gastrointestinal: Yes: Normal Bowel Sounds, Soft, Abdomen, Obese Edema: Yes Edema: LLE: Trace, RLE: Trace Labs: CBC, BMP 02/20/19 06:51 02/20/19 06:51 INR, PTT INR 1.19 (0.83-1.09) H 02/18/19 16:41 Problem List - Problems (1) Acute respiratory failure with hypoxia and hypercapnia Code(s): J96.01 - ACUTE RESPIRATORY FAILURE WITH HYPOXIA; J96.02 - ACUTE RESPIRATORY FAILURE WITH HYPERCAPNIA (2) CHF exacerbation Code(s): I50.9 - HEART FAILURE, UNSPECIFIED Qualifiers: Qualified Code(s): I50.43 - Acute on chronic combined systolic (congestive) and diastolic (congestive) heart failure (3) Shortness of breath Code(s): R06.02 - SHORTNESS OF BREATH (4) Sleep apnea Code(s): G47.30 - SLEEP APNEA, UNSPECIFIED Qualifiers: Qualified Code(s): G47.33 - Obstructive sleep apnea (adult) (pediatric) (5) CAD (coronary artery disease) Code(s): I25.10 - ATHSCL HEART DISEASE OF [place] CORONARY ARTERY W/O ANG PCTRS Qualifiers: Qualified Code(s): I25.10 - Atherosclerotic heart disease of [place] coronary artery without angina pectoris (6) HTN (hypertension) Code(s): I10 - ESSENTIAL (PRIMARY) HYPERTENSION Qualifiers: Qualified Code(s): I10 - Essential (primary) hypertension (7) Hyperlipidemia Code(s): E78.5 - HYPERLIPIDEMIA, UNSPECIFIED Qualifiers: Qualified Code(s): E78.00 - Pure hypercholesterolemia, unspecified; E78.0 - Pure hypercholesterolemia (8) Status post coronary artery bypass graft Code(s): Z95.1 - PRESENCE OF AORTOCORONARY BYPASS GRAFT (9) Status post coronary artery stent placement Code(s): Z95.5 - PRESENCE OF CORONARY ANGIOPLASTY IMPLANT AND GRAFT Assessment/Plan 02/20/2019 Echo: Mod dilated LV with mild-mod decreased LV fxn, mild MR, tr- mild TR 02/19/2019 Mild centrilobular emphysema Echocardiography performed January 10, 2019 revealed mild to moderate reduction in left ventricular systolic function with estimated LVEF between 40-45%, mild left atrial dilatation, poorly visualize right ventricle but grossly normal in size, mild thickening of the mitral valve leaflets with trace mitral valve regurgitation Left heart cardiac catheterization coronary angiography January 09, 2019 revealed triple vessel obstructive coronary artery disease, left main distal 30% diameter stenosis, mid LAD 100% diameter stenosis, proximal LCx 60% diameter stenosis, LCx OM 100% diameter stenosis (post intervention), proximal RCA 100% diameter stenosis, patent DRIVER to mid LAD, SVG to RPDA distal SVG anastomotic stenosis Pharmacologic myocardial perfusion imaging study performed November 27, 2018 revealed large size infero-lateral and hien-lateral wall defect compatible with ischemia with zone of infarct moderate size hien-apical wall defect compatible with ischemia, calculated LV EF of 54% overestimated 1. Acute on chronic class I-II [place] [employer] classification left ventricular failure related to systolic/diastolic left ventricular dysfunction 2. Coronary artery disease post myocardial infarction post coronary artery bypass grafting post multi-vessel percutaneous coronary intervention/stenting residual disease angina pectoris 3. Hypertensive cardiovascular disease 4. Hypercholesterolemia 5. Chronic kidney disease 6. Anemia 7. COPD 8. OSAS on cpap PLAN: 1. Continue Coreg 25 mg bid, ASA 81 qd, Lipitor 20 qhs, Plavix 75 qd, Imdur 60 qd 2. Ideally WENDY inhibitor or angiotensin receptor [place] therapy initiation is recommended provided renal function stabilizes to baseline and hyperkalemia corrects 3. IV diuresis with monitor diuretic response, renal fxn and electrolytes 4. BD, O2, bipap nightly and as needed, PT as tolerated 5. Patient was strongly counseled dietary compliance including caloric restriction- weight reduction 6. F/u with Dr. Arash Hanson at [facility] for RCA ELECTROLYSIS NEEDLE OPERATOR PCI once stable 7. DVT prophylaxis
--- NOTE | 2019-02-22 10:42 | PN ---
Progress Note, Physician History of Present Illness: pulmonary alert,laying in bed,less dyspneic,+ cp earlier - Current Medication List Current Medications: Active Medications Albuterol/Ipratropium (Duoneb -) 1 amp NEB RQID [facility] Last Admin: 02/22/19 08:04 Dose: 1 amp Aspirin (Ecotrin -) 81 mg PO DAILY [facility] Last Admin: 02/22/19 10:34 Dose: 81 mg Atorvastatin Calcium (Lipitor -) 20 mg PO HS [facility] Last Admin: 02/21/19 22:40 Dose: 20 mg Carvedilol (Coreg -) 25 mg PO BID [facility] Last Admin: 02/22/19 10:33 Dose: 25 mg Clopidogrel Bisulfate (Plavix -) 75 mg PO DAILY [facility] Last Admin: 02/22/19 10:33 Dose: 75 mg Furosemide (Lasix Injection -) 40 mg IVPUSH DAILY [facility] Last Admin: 02/22/19 10:34 Dose: 40 mg Heparin Sodium (Porcine) (Heparin -) 5,000 unit SQ BID [facility] Last Admin: 02/22/19 10:33 Dose: 5,000 unit Isosorbide Mononitrate (Imdur -) 60 mg PO DAILY [facility] Last Admin: 02/22/19 10:33 Dose: 60 mg Sertraline HCl (Zoloft -) 25 mg PO DAILY [facility] Last Admin: 02/22/19 10:34 Dose: 25 mg - Objective Vital Signs: Vital Signs Temperature 98.1 F 02/22/19 05:52 Pulse Rate 60 02/22/19 05:52 Respiratory Rate 17 02/22/19 05:52 Blood Pressure 126/74 02/22/19 05:52 O2 Sat by Pulse Oximetry (%) 100 02/21/19 21:00 Constitutional: Yes: Calm, Obese Eyes: Yes: WNL HENT: Yes: WNL Neck: Yes: WNL Cardiovascular: Yes: Regular Rate and Rhythm, S1, S2 Respiratory: Yes: Diminished Gastrointestinal: Yes: Normal Bowel Sounds, Abdomen, Obese Extremities: Yes: WNL Edema: Yes Labs: Problem List - Problems (1) Acute respiratory failure with hypoxia and hypercapnia Code(s): J96.01 - ACUTE RESPIRATORY FAILURE WITH HYPOXIA; J96.02 - ACUTE RESPIRATORY FAILURE WITH HYPERCAPNIA (2) CHF exacerbation Code(s): I50.9 - HEART FAILURE, UNSPECIFIED Qualifiers: Heart failure type: combined systolic and diastolic Qualified Code(s): I50.43 - Acute on chronic combined systolic (congestive) and diastolic ( congestive) heart failure (3) Shortness of breath Code(s): R06.02 - SHORTNESS OF BREATH (4) CAD (coronary artery disease) Code(s): I25.10 - ATHSCL HEART DISEASE OF [place] CORONARY ARTERY W/O ANG PCTRS Qualifiers: Coronary Disease-Associated Artery/Lesion type: [place] artery [place] vs. transplanted heart: [place] heart Associated angina: without angina Qualified Code(s): I25.10 - Atherosclerotic heart disease of [place] coronary artery without angina pectoris (5) Hyperlipidemia Code(s): E78.5 - HYPERLIPIDEMIA, UNSPECIFIED Qualifiers: Hyperlipidemia type: pure hypercholesterolemia Qualified Code(s): E78.00 - Pure hypercholesterolemia, unspecified; E78.0 - Pure hypercholesterolemia (6) Status post coronary artery bypass graft Code(s): Z95.1 - PRESENCE OF AORTOCORONARY BYPASS GRAFT (7) Sleep apnea Code(s): G47.30 - SLEEP APNEA, UNSPECIFIED Qualifiers: Sleep apnea type: obstructive Qualified Code(s): G47.33 - Obstructive sleep apnea (adult) (pediatric) (8) Diastolic dysfunction without heart failure Code(s): I51.9 - HEART DISEASE, UNSPECIFIED (9) Morbid obesity Code(s): E66.01 - MORBID (SEVERE) OBESITY DUE TO EXCESS CALORIES Assessment/Plan IMP ACUTE HYPOXEMIC/LIKELY CHRONIC HYPERCAPNEIC RESPIRATORY FAILURE ACUTE ON CHRONIC CHF CHEST PAIN COPD ASHD S/P CABG 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 H/O LIVER TRANSPLANT CHRONIC HEP C ANEMIA MORBID OBESITY PLAN CONTINUE LASIX SUPPLEMENTAL O2 INHALED BRONCHODILATORS BIPAP AT NIGHT AND PRN DAILY WTS AMBULATORY O2 SAT PRIOR TO DISCHARGE TO DETERMINE IF PT IS A CANDIDATE FOR HOME O2 YEARLY LOW DOSE CHEST CT FOR LUNG CANCER SCREENING MONITOR THANG,H+H CE DR CRUMP Problem List - Problems (1) Acute respiratory failure with hypoxia and hypercapnia Code(s): J96.01 - ACUTE RESPIRATORY FAILURE WITH HYPOXIA; J96.02 - ACUTE RESPIRATORY FAILURE WITH HYPERCAPNIA (2) CHF exacerbation Code(s): I50.9 - HEART FAILURE, UNSPECIFIED (3) Shortness of breath Code(s): R06.02 - SHORTNESS OF BREATH (4) CAD (coronary artery disease) Code(s): I25.10 - ATHSCL HEART DISEASE OF [place] CORONARY ARTERY W/O ANG PCTRS Qualifiers: (5) Hyperlipidemia Code(s): E78.5 - HYPERLIPIDEMIA, UNSPECIFIED Qualifiers: (6) Status post coronary artery bypass graft Code(s): Z95.1 - PRESENCE OF AORTOCORONARY BYPASS GRAFT (7) Sleep apnea Code(s): G47.30 - SLEEP APNEA, UNSPECIFIED (8) Diastolic dysfunction without heart failure Code(s): I51.9 - HEART DISEASE, UNSPECIFIED (9) Morbid obesity Code(s): E66.01 - MORBID (SEVERE) OBESITY DUE TO EXCESS CALORIES
--- NOTE | 2019-02-22 11:42 | EKG ---
Test Reason : Blood Pressure : / mmHG Vent. 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
--- NOTE | 2019-02-22 11:44 | PN ---
Progress Note, Physician History of Present Illness: on bipap - Current Medication List Current Medications: Active Medications Albuterol/Ipratropium (Duoneb -) 1 amp NEB RQID [facility] Last Admin: 02/22/19 08:04 Dose: 1 amp Aspirin (Ecotrin -) 81 mg PO DAILY [facility] Last Admin: 02/22/19 10:34 Dose: 81 mg Atorvastatin Calcium (Lipitor -) 20 mg PO HS [facility] Last Admin: 02/21/19 22:40 Dose: 20 mg Carvedilol (Coreg -) 25 mg PO BID [facility] Last Admin: 02/22/19 10:33 Dose: 25 mg Clopidogrel Bisulfate (Plavix -) 75 mg PO DAILY [facility] Last Admin: 02/22/19 10:33 Dose: 75 mg Furosemide (Lasix Injection -) 40 mg IVPUSH DAILY [facility] Last Admin: 02/22/19 10:34 Dose: 40 mg Heparin Sodium (Porcine) (Heparin -) 5,000 unit SQ BID [facility] Last Admin: 02/22/19 10:33 Dose: 5,000 unit Isosorbide Mononitrate (Imdur -) 60 mg PO DAILY [facility] Last Admin: 02/22/19 10:33 Dose: 60 mg Sertraline HCl (Zoloft -) 25 mg PO DAILY [facility] Last Admin: 02/22/19 10:34 Dose: 25 mg - Objective Vital Signs: Vital Signs Temperature 98.1 F 02/22/19 05:52 Pulse Rate 60 02/22/19 05:52 Respiratory Rate 17 02/22/19 05:52 Blood Pressure 126/74 02/22/19 05:52 O2 Sat by Pulse Oximetry (%) 100 02/21/19 21:00 Constitutional: Yes: No Distress HENT: Yes: Atraumatic Neck: Yes: Supple Cardiovascular: Yes: Regular Rate and Rhythm Respiratory: Yes: Rhonchi Gastrointestinal: Yes: Normal Bowel Sounds Extremities: Yes: WNL Edema: Yes Edema: LLE: Trace, RLE: Trace Neurological: Yes: Alert, Oriented Labs: CBC, BMP 02/20/19 06:51 02/20/19 06:51 INR, PTT INR 1.19 (0.83-1.09) H 02/18/19 16:41 Problem List - Problems (1) BiPAP (biphasic positive airway pressure) dependence Code(s): Z99.89 - DEPENDENCE ON OTHER ENABLING MACHINES AND DEVICES (2) CHF exacerbation Assessment/Plan: continue home meds iv lasix Code(s): I50.9 - HEART FAILURE, UNSPECIFIED Qualifiers: Heart failure type: combined systolic and diastolic Qualified Code(s): I50.43 - Acute on chronic combined systolic (congestive) and diastolic ( congestive) heart failure (3) CAD (coronary artery disease) Code(s): I25.10 - ATHSCL HEART DISEASE OF [place] CORONARY ARTERY W/O ANG PCTRS Qualifiers: Coronary Disease-Associated Artery/Lesion type: [place] artery [place] vs. transplanted heart: [place] heart Associated angina: without angina Qualified Code(s): I25.10 - Atherosclerotic heart disease of [place] coronary artery without angina pectoris (4) HTN (hypertension) Assessment/Plan: onm eds monitor Code(s): I10 - ESSENTIAL (PRIMARY) HYPERTENSION Qualifiers: Hypertension type: essential hypertension Qualified Code(s): I10 - Essential (primary) hypertension (5) Hyperlipidemia Assessment/Plan: on lipitor Code(s): E78.5 - HYPERLIPIDEMIA, UNSPECIFIED Qualifiers: Hyperlipidemia type: pure hypercholesterolemia Qualified Code(s): E78.00 - Pure hypercholesterolemia, unspecified; E78.0 - Pure hypercholesterolemia
[2019-02-22] MEDS: ATORVASTATIN CA 20 MG TABLET (FP) PO SCH (21:53)
[2019-02-23 04:00] VITALS: BMI 48.0
[2019-02-23 07:00] LABS: BLOOD UREA NITROGEN 34.2 mg/dL (7-18); CALCIUM 8.7 mg/dL (8.5-10.1); CREATININE 0.8 mg/dL (0.55-1.3); POTASSIUM 4.6 mmol/L (3.5-5.1)
--- NOTE | 2019-02-23 08:49 | PN ---
Progress Note, Physician History of Present Illness: pulmonary awake,alert,less dyspneic,-cp - Current Medication List Current Medications: Active Medications Albuterol/Ipratropium (Duoneb -) 1 amp NEB RQID [facility] Last Admin: 02/22/19 21:05 Dose: 1 amp Aspirin (Ecotrin -) 81 mg PO DAILY [facility] Last Admin: 02/22/19 10:34 Dose: 81 mg Atorvastatin Calcium (Lipitor -) 20 mg PO HS [facility] Last Admin: 02/22/19 21:53 Dose: 20 mg Carvedilol (Coreg -) 25 mg PO BID [facility] Last Admin: 02/22/19 21:53 Dose: 25 mg Clopidogrel Bisulfate (Plavix -) 75 mg PO DAILY [facility] Last Admin: 02/22/19 10:33 Dose: 75 mg Furosemide (Lasix Injection -) 40 mg IVPUSH DAILY [facility] Last Admin: 02/22/19 10:34 Dose: 40 mg Heparin Sodium (Porcine) (Heparin -) 5,000 unit SQ BID [facility] Last Admin: 02/22/19 21:54 Dose: 5,000 unit Isosorbide Mononitrate (Imdur -) 60 mg PO DAILY [facility] Last Admin: 02/22/19 10:33 Dose: 60 mg Sertraline HCl (Zoloft -) 25 mg PO DAILY [facility] Last Admin: 02/22/19 10:34 Dose: 25 mg - Objective Vital Signs: Vital Signs Temperature 98.4 F 02/23/19 06:00 Pulse Rate 65 02/23/19 06:00 Respiratory Rate 22 H 02/23/19 06:00 Blood Pressure 124/68 02/23/19 06:00 O2 Sat by Pulse Oximetry (%) 98 02/23/19 06:30 Constitutional: Yes: Well Nourished, Calm, Obese Eyes: Yes: WNL HENT: Yes: WNL Neck: Yes: WNL Cardiovascular: Yes: Regular Rate and Rhythm, S1, S2 Respiratory: Yes: Diminished Gastrointestinal: Yes: Normal Bowel Sounds, Soft Extremities: Yes: WNL Edema: Yes Labs: CBC, BMP 02/20/19 06:51 02/23/19 05:40 INR, PTT INR 1.19 (0.83-1.09) H 02/18/19 16:41 Problem List - Problems (1) Acute respiratory failure with hypoxia and hypercapnia Code(s): J96.01 - ACUTE RESPIRATORY FAILURE WITH HYPOXIA; J96.02 - ACUTE RESPIRATORY FAILURE WITH HYPERCAPNIA (2) CHF exacerbation Code(s): I50.9 - HEART FAILURE, UNSPECIFIED Qualifiers: Heart failure type: combined systolic and diastolic Qualified Code(s): I50.43 - Acute on chronic combined systolic (congestive) and diastolic ( congestive) heart failure (3) Shortness of breath Code(s): R06.02 - SHORTNESS OF BREATH (4) CAD (coronary artery disease) Code(s): I25.10 - ATHSCL HEART DISEASE OF [place] CORONARY ARTERY W/O ANG PCTRS Qualifiers: Coronary Disease-Associated Artery/Lesion type: [place] artery [place] vs. transplanted heart: [place] heart Associated angina: without angina Qualified Code(s): I25.10 - Atherosclerotic heart disease of [place] coronary artery without angina pectoris (5) Hyperlipidemia Code(s): E78.5 - HYPERLIPIDEMIA, UNSPECIFIED Qualifiers: Hyperlipidemia type: pure hypercholesterolemia Qualified Code(s): E78.00 - Pure hypercholesterolemia, unspecified; E78.0 - Pure hypercholesterolemia (6) Status post coronary artery bypass graft Code(s): Z95.1 - PRESENCE OF AORTOCORONARY BYPASS GRAFT (7) Sleep apnea Code(s): G47.30 - SLEEP APNEA, UNSPECIFIED Qualifiers: Sleep apnea type: obstructive Qualified Code(s): G47.33 - Obstructive sleep apnea (adult) (pediatric) (8) Diastolic dysfunction without heart failure Code(s): I51.9 - HEART DISEASE, UNSPECIFIED (9) Morbid obesity Code(s): E66.01 - MORBID (SEVERE) OBESITY DUE TO EXCESS CALORIES Assessment/Plan IMP ACUTE HYPOXEMIC/LIKELY CHRONIC HYPERCAPNEIC RESPIRATORY FAILURE ACUTE ON CHRONIC CHF slowly improving CHEST PAIN RESOLVED COPD ASHD S/P CABG 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 H/O LIVER TRANSPLANT CHRONIC HEP C ANEMIA MORBID OBESITY PLAN CONTINUE LASIX SUPPLEMENTAL O2 INHALED BRONCHODILATORS BIPAP AT NIGHT AND PRN DAILY WTS AMBULATORY O2 SAT PRIOR TO DISCHARGE TO DETERMINE IF PT IS A CANDIDATE FOR HOME O2 YEARLY LOW DOSE CHEST CT FOR LUNG CANCER SCREENING MONITOR LYTES,H+H CHEST X-RAY DR CRUMP Problem List - Problems (1) Acute respiratory failure with hypoxia and hypercapnia Code(s): J96.01 - ACUTE RESPIRATORY FAILURE WITH HYPOXIA; J96.02 - ACUTE RESPIRATORY FAILURE WITH HYPERCAPNIA (2) CHF exacerbation Code(s): I50.9 - HEART FAILURE, UNSPECIFIED (3) Shortness of breath Code(s): R06.02 - SHORTNESS OF BREATH (4) CAD (coronary artery disease) Code(s): I25.10 - ATHSCL HEART DISEASE OF [place] CORONARY ARTERY W/O ANG PCTRS Qualifiers: (5) Hyperlipidemia Code(s): E78.5 - HYPERLIPIDEMIA, UNSPECIFIED Qualifiers: (6) Status post coronary artery bypass graft Code(s): Z95.1 - PRESENCE OF AORTOCORONARY BYPASS GRAFT (7) Sleep apnea Code(s): G47.30 - SLEEP APNEA, UNSPECIFIED (8) Diastolic dysfunction without heart failure Code(s): I51.9 - HEART DISEASE, UNSPECIFIED (9) Morbid obesity Code(s): E66.01 - MORBID (SEVERE) OBESITY DUE TO EXCESS CALORIES
[2019-02-23] MEDS: ALBUTEROL SO4 2.5/IPRATROPIUM 0.5 INH SOL 3 ML VIAL.NEB. NEB SCH ×4 (08:58→20:47)
[2019-02-23] MEDS: HEPARIN NA (PORCINE) 5,000 UNITS/ML 1ML VIAL SQ SCH ×2 (09:48→22:52)
[2019-02-23] MEDS: ISOSORBIDE MONONITRATE 60 MG TAB.SR.24H (FP) PO SCH (09:48)
[2019-02-23] MEDS: FUROSEMIDE 40 MG/4 ML INJECTABLE VIAL IVPUSH SCH (09:48)
[2019-02-23] MEDS: CLOPIDOGREL BISULFATE 75 MG TABLET (FP) PO SCH (09:49)
[2019-02-23] MEDS: ASPIRIN COATED 81 MG TABLET.EC PO SCH (09:49)
[2019-02-23] MEDS: SERTRALINE HCL 25 MG TABLET (FP) PO SCH (09:49)
[2019-02-23] MEDS: CARVEDILOL 25 MG TABLET (FP) PO SCH ×2 (09:51→22:51)
--- NOTE | 2019-02-23 11:55 | PN ---
Progress Note, Physician History of Present Illness: on bipap - Current Medication List Current Medications: Active Medications Albuterol/Ipratropium (Duoneb -) 1 amp NEB RQID [facility] Last Admin: 02/23/19 08:58 Dose: 1 amp Aspirin (Ecotrin -) 81 mg PO DAILY [facility] Last Admin: 02/23/19 09:49 Dose: 81 mg Atorvastatin Calcium (Lipitor -) 20 mg PO HS [facility] Last Admin: 02/22/19 21:53 Dose: 20 mg Carvedilol (Coreg -) 25 mg PO BID [facility] Last Admin: 02/23/19 09:51 Dose: 25 mg Clopidogrel Bisulfate (Plavix -) 75 mg PO DAILY [facility] Last Admin: 02/23/19 09:49 Dose: 75 mg Furosemide (Lasix Injection -) 40 mg IVPUSH DAILY [facility] Last Admin: 02/23/19 09:48 Dose: 40 mg Heparin Sodium (Porcine) (Heparin -) 5,000 unit SQ BID [facility] Last Admin: 02/23/19 09:48 Dose: 5,000 unit Isosorbide Mononitrate (Imdur -) 60 mg PO DAILY [facility] Last Admin: 02/23/19 09:48 Dose: 60 mg Sertraline HCl (Zoloft -) 25 mg PO DAILY [facility] Last Admin: 02/23/19 09:49 Dose: 25 mg - Objective Vital Signs: Vital Signs Temperature 98.2 F 02/23/19 10:00 Pulse Rate 72 02/23/19 10:00 Respiratory Rate 20 02/23/19 10:00 Blood Pressure 145/70 02/23/19 10:00 O2 Sat by Pulse Oximetry (%) 98 02/23/19 09:00 Constitutional: Yes: No Distress HENT: Yes: Atraumatic Neck: Yes: Supple Cardiovascular: Yes: Regular Rate and Rhythm Respiratory: Yes: CTA Bilaterally Gastrointestinal: Yes: Normal Bowel Sounds Extremities: Yes: WNL Neurological: Yes: Alert, Oriented Labs: CBC, BMP 02/20/19 06:51 02/23/19 05:40 INR, PTT INR 1.19 (0.83-1.09) H 02/18/19 16:41 Problem List - Problems (1) BiPAP (biphasic positive airway pressure) dependence Code(s): Z99.89 - DEPENDENCE ON OTHER ENABLING MACHINES AND DEVICES (2) CHF exacerbation Assessment/Plan: continue home meds iv lasix Code(s): I50.9 - HEART FAILURE, UNSPECIFIED Qualifiers: Heart failure type: combined systolic and diastolic Qualified Code(s): I50.43 - Acute on chronic combined systolic (congestive) and diastolic ( congestive) heart failure (3) CAD (coronary artery disease) Code(s): I25.10 - ATHSCL HEART DISEASE OF [place] CORONARY ARTERY W/O ANG PCTRS Qualifiers: Coronary Disease-Associated Artery/Lesion type: [place] artery [place] vs. transplanted heart: [place] heart Associated angina: without angina Qualified Code(s): I25.10 - Atherosclerotic heart disease of [place] coronary artery without angina pectoris (4) HTN (hypertension) Assessment/Plan: onm eds monitor Code(s): I10 - ESSENTIAL (PRIMARY) HYPERTENSION Qualifiers: Hypertension type: essential hypertension Qualified Code(s): I10 - Essential (primary) hypertension (5) Hyperlipidemia Assessment/Plan: on lipitor Code(s): E78.5 - HYPERLIPIDEMIA, UNSPECIFIED Qualifiers: Hyperlipidemia type: pure hypercholesterolemia Qualified Code(s): E78.00 - Pure hypercholesterolemia, unspecified; E78.0 - Pure hypercholesterolemia (6) Acute respiratory failure with hypoxia and hypercapnia Assessment/Plan: iv steroids bipap Code(s): J96.01 - ACUTE RESPIRATORY FAILURE WITH HYPOXIA; J96.02 - ACUTE RESPIRATORY FAILURE WITH HYPERCAPNIA
--- NOTE | 2019-02-23 13:08 | PN ---
Progress Note (short form) - Note Progress Note: Chief Complaint: Events noted, notes reviewed, reports persistent dyspnea but improved, denies any chest pain History of Present Illness: Seen and examined on telemetry. Events noted, notes reviewed, reports persistent dyspnea but improved, denies any chest pain Echocardiography performed January 10, 2019 revealed mild to moderate reduction in left ventricular systolic function with estimated LVEF between 40-45%, mild left atrial dilatation, poorly visualize right ventricle but grossly normal in size, mild thickening of the mitral valve leaflets with trace mitral valve regurgitation Left heart cardiac catheterization coronary angiography January 09, 2019 revealed triple vessel obstructive coronary artery disease, left main distal 30% diameter stenosis, mid LAD 100% diameter stenosis, proximal LCx 60% diameter stenosis, LCx OM 100% diameter stenosis (post intervention), proximal RCA 100% diameter stenosis, patent DRIVER to mid LAD, SVG to RPDA distal SVG anastomotic stenosis Pharmacologic myocardial perfusion imaging study performed November 27, 2018 revealed large size infero-lateral and hien-lateral wall defect compatible with ischemia with zone of infarct moderate size hien-apical wall defect compatible with ischemia, calculated LV EF of 54%overestimated Medications: Current Medications Albuterol/Ipratropium (Duoneb -) 1 amp NEB RQID [facility] Last Admin: 02/23/19 08:58 Dose: 1 amp Aspirin (Ecotrin -) 81 mg PO DAILY [facility] Last Admin: 02/23/19 09:49 Dose: 81 mg Atorvastatin Calcium (Lipitor -) 20 mg PO HS [facility] Last Admin: 02/22/19 21:53 Dose: 20 mg Carvedilol (Coreg -) 25 mg PO BID [facility] Last Admin: 02/23/19 09:51 Dose: 25 mg Clopidogrel Bisulfate (Plavix -) 75 mg PO DAILY [facility] Last Admin: 02/23/19 09:49 Dose: 75 mg Furosemide (Lasix Injection -) 40 mg IVPUSH DAILY [facility] Last Admin: 02/23/19 09:48 Dose: 40 mg Heparin Sodium (Porcine) (Heparin -) 5,000 unit SQ BID [facility] Last Admin: 02/23/19 09:48 Dose: 5,000 unit Isosorbide Mononitrate (Imdur -) 60 mg PO DAILY [facility] Last Admin: 02/23/19 09:48 Dose: 60 mg Sertraline HCl (Zoloft -) 25 mg PO DAILY [facility] Last Admin: 02/23/19 09:49 Dose: 25 mg Review of Systems Constitutional: denies: Chills or Fever Cardiovascular: as noted above Respiratory: denies: Cough Gastrointestinal: denies: Nausea, Vomiting, Diarrhea, Constipation or Abdominal Pain Genitourinary: denies: Dysuria Musculoskeletal: denies: Joint Pain Neurological: denies: Dizziness or Headache Vital Signs: Last Vital Signs Temp Pulse Resp BP Pulse Ox 98.2 F 72 20 145/70 98 02/23/19 10:00 02/23/19 10:00 02/23/19 10:00 02/23/19 10:00 02/23/19 09:00 Intake & Output 02/20/19 02/21/19 02/22/19 02/23/19 23:59 23:59 23:59 23:59 Intake Total 015 143 8969 370 Output Total 2370 2200 3250 Balance -1840 -1660 -1900 370 Weight 283 lb 283 lb 6.4 oz 280 lb 281 lb Constitutional: No Distress, Calm, Thin Respiratory: Diminished at the Bases Bilaterally Cardiovascular: S1 S2 Regular Rate and Rhythm Gastrointestinal: Soft Benign Normal Bowel Sounds Ext: Edema Labs: CBC, BMP 02/20/19 06:51 02/23/19 05:40 Assessment/Plan ASSESSMENT: 1. Acute on chronic class I-II [place] [employer] classification left ventricular failure related to systolic/diastolic left ventricular dysfunction, resolved 2. Coronary artery disease post myocardial infarction post coronary artery bypass grafting post multi-vessel percutaneous coronary intervention/stenting residual disease angina pectoris 3. Hypertensive cardiovascular disease 4. Hypercholesterolemia 5. Chronic kidney disease, pre-renal azotemia 6. Anemia PLAN: 1. Continue Coreg and Nitrates/Imdur 2. Ideally WENDY inhibitor or angiotensin receptor [place] therapy initiation is recommended provided renal function stabilizes/at baseline, hemodynamics permitting 3. Diuretics with caution, Lasix to PO consideration for addition of Aldactone therapy provided renal function stabilizes/at baseline if needed 4. Continue Lipitor therapy 5. Continue Ecotrin and Plavix therapies with caution and close monitoring of hemoglobin Janet Singh M.D.
[2019-02-23] MEDS: ATORVASTATIN CA 20 MG TABLET (FP) PO SCH (22:51)
[2019-02-24 06:43] LABS: BASO % 0.2 % (0-2.0); EOS % 0.4 % (0-4.5); HEMATOCRIT 28.1 % (35.4-49); HEMOGLOBIN 9.3 GM/dL (11.7-16.9); LYMPH % 23.7 % (8-40); MCH 33.3 pg (25.7-33.7); MCHC 33.1 g/dl (32.0-35.9); MEAN CELL VOLUME 100.5 fl (80-96); MEAN PLT VOLUME 8.9 fl (7.5-11.1); MONO % 10.6 % (3.8-10.2); NEUT % 65.1 % (42.8-82.8); RBC 2.79 M/mm3 (4.00-5.60); RDW 14.3 % (11.9-15.9); WHITE BLOOD COUNT 4.8 K/mm3 (4.0-10.0)
[2019-02-24 07:18] LABS: ALBUMIN 2.9 g/dl (3.4-5.0); BILIRUBIN,TOTAL 0.4 mg/dL (0.2-1); BLOOD UREA NITROGEN 39.7 mg/dL (7-18); CALCIUM 8.6 mg/dL (8.5-10.1); CREATININE 0.9 mg/dL (0.55-1.3); POTASSIUM 4.8 mmol/L (3.5-5.1); TOT PROT 7.3 g/dl (6.4-8.2)
[2019-02-24 07:21] LABS: PLATELET COUNT 125 K/MM3 (134-434)
[2019-02-24] MEDS: ALBUTEROL SO4 2.5/IPRATROPIUM 0.5 INH SOL 3 ML VIAL.NEB. NEB SCH ×4 (07:38→19:52)
--- NOTE | 2019-02-24 08:42 | PN ---
Progress Note, Physician History of Present Illness: pulmonary alert on bipap,dyspnea improving,-cp - Current Medication List Current Medications: Active Medications Albuterol/Ipratropium (Duoneb -) 1 amp NEB RQID [facility] Last Admin: 02/23/19 20:47 Dose: 1 amp Aspirin (Ecotrin -) 81 mg PO DAILY [facility] Last Admin: 02/23/19 09:49 Dose: 81 mg Atorvastatin Calcium (Lipitor -) 20 mg PO HS [facility] Last Admin: 02/23/19 22:51 Dose: 20 mg Carvedilol (Coreg -) 25 mg PO BID [facility] Last Admin: 02/23/19 22:51 Dose: 25 mg Clopidogrel Bisulfate (Plavix -) 75 mg PO DAILY [facility] Last Admin: 02/23/19 09:49 Dose: 75 mg Furosemide (Lasix Injection -) 40 mg IVPUSH DAILY [facility] Last Admin: 02/23/19 09:48 Dose: 40 mg Heparin Sodium (Porcine) (Heparin -) 5,000 unit SQ BID [facility] Last Admin: 02/23/19 22:52 Dose: 5,000 unit Isosorbide Mononitrate (Imdur -) 60 mg PO DAILY [facility] Last Admin: 02/23/19 09:48 Dose: 60 mg Sertraline HCl (Zoloft -) 25 mg PO DAILY [facility] Last Admin: 02/23/19 09:49 Dose: 25 mg - Objective Vital Signs: Vital Signs Temperature 97.6 F 02/24/19 05:00 Pulse Rate 57 L 02/24/19 05:00 Respiratory Rate 22 H 02/24/19 05:00 Blood Pressure 106/52 L 02/24/19 05:00 O2 Sat by Pulse Oximetry (%) 98 02/24/19 05:30 Constitutional: Yes: Calm, Obese Eyes: Yes: WNL HENT: Yes: WNL Neck: Yes: WNL Cardiovascular: Yes: Regular Rate and Rhythm, S1, S2 Respiratory: Yes: Diminished, On BiPap Gastrointestinal: Yes: Normal Bowel Sounds, Soft Extremities: Yes: WNL Edema: Yes Labs: CBC, BMP 02/24/19 05:40 02/24/19 05:40 INR, PTT INR 1.19 (0.83-1.09) H 02/18/19 16:41 Problem List - Problems (1) Acute respiratory failure with hypoxia and hypercapnia Code(s): J96.01 - ACUTE RESPIRATORY FAILURE WITH HYPOXIA; J96.02 - ACUTE RESPIRATORY FAILURE WITH HYPERCAPNIA (2) CHF exacerbation Code(s): I50.9 - HEART FAILURE, UNSPECIFIED Qualifiers: Heart failure type: combined systolic and diastolic Qualified Code(s): I50.43 - Acute on chronic combined systolic (congestive) and diastolic ( congestive) heart failure (3) Shortness of breath Code(s): R06.02 - SHORTNESS OF BREATH (4) CAD (coronary artery disease) Code(s): I25.10 - ATHSCL HEART DISEASE OF [place] CORONARY ARTERY W/O ANG PCTRS Qualifiers: Coronary Disease-Associated Artery/Lesion type: [place] artery [place] vs. transplanted heart: [place] heart Associated angina: without angina Qualified Code(s): I25.10 - Atherosclerotic heart disease of [place] coronary artery without angina pectoris (5) Hyperlipidemia Code(s): E78.5 - HYPERLIPIDEMIA, UNSPECIFIED Qualifiers: Hyperlipidemia type: pure hypercholesterolemia Qualified Code(s): E78.00 - Pure hypercholesterolemia, unspecified; E78.0 - Pure hypercholesterolemia (6) Status post coronary artery bypass graft Code(s): Z95.1 - PRESENCE OF AORTOCORONARY BYPASS GRAFT (7) Sleep apnea Code(s): G47.30 - SLEEP APNEA, UNSPECIFIED Qualifiers: Sleep apnea type: obstructive Qualified Code(s): G47.33 - Obstructive sleep apnea (adult) (pediatric) (8) Diastolic dysfunction without heart failure Code(s): I51.9 - HEART DISEASE, UNSPECIFIED (9) Morbid obesity Code(s): E66.01 - MORBID (SEVERE) OBESITY DUE TO EXCESS CALORIES Assessment/Plan IMP ACUTE HYPOXEMIC/LIKELY CHRONIC HYPERCAPNEIC RESPIRATORY FAILURE ACUTE ON CHRONIC CHF slowly improving CHEST PAIN RESOLVED COPD ASHD S/P CABG H/O HEARING THERAPY DIRECTOR 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 H/O LIVER TRANSPLANT CHRONIC HEP C ANEMIA MORBID OBESITY PLAN CONTINUE LASIX SUPPLEMENTAL O2 INHALED BRONCHODILATORS SHORT COURSE OF MEDROL BIPAP AT NIGHT AND PRN DAILY WTS AMBULATORY O2 SAT PRIOR TO DISCHARGE TO DETERMINE IF PT IS A CANDIDATE FOR HOME O2 YEARLY LOW DOSE CHEST CT FOR LUNG CANCER SCREENING MONITOR THANG,H+H DR CRUMP Problem List - Problems (1) Acute respiratory failure with hypoxia and hypercapnia Code(s): J96.01 - ACUTE RESPIRATORY FAILURE WITH HYPOXIA; J96.02 - ACUTE RESPIRATORY FAILURE WITH HYPERCAPNIA (2) CHF exacerbation Code(s): I50.9 - HEART FAILURE, UNSPECIFIED (3) Shortness of breath Code(s): R06.02 - SHORTNESS OF BREATH (4) CAD (coronary artery disease) Code(s): I25.10 - ATHSCL HEART DISEASE OF [place] CORONARY ARTERY W/O ANG PCTRS Qualifiers: (5) Hyperlipidemia Code(s): E78.5 - HYPERLIPIDEMIA, UNSPECIFIED Qualifiers: (6) Status post coronary artery bypass graft Code(s): Z95.1 - PRESENCE OF AORTOCORONARY BYPASS GRAFT (7) Sleep apnea Code(s): G47.30 - SLEEP APNEA, UNSPECIFIED (8) Diastolic dysfunction without heart failure Code(s): I51.9 - HEART DISEASE, UNSPECIFIED (9) Morbid obesity Code(s): E66.01 - MORBID (SEVERE) OBESITY DUE TO EXCESS CALORIES
[2019-02-24] MEDS ORDERED: ALBUTEROL SO4 0.083% IH SOL 2.5 MG/3 ML VIAL.NEB. NEB PRN (08:43)
[2019-02-24] MEDS: FUROSEMIDE 40 MG/4 ML INJECTABLE VIAL IVPUSH SCH (10:39)
[2019-02-24] MEDS: ISOSORBIDE MONONITRATE 60 MG TAB.SR.24H (FP) PO SCH (10:39)
[2019-02-24] MEDS: methylPREDNISolone NA SUCC 40 MG/1 ML VIAL IVPUSH SCH ×2 (10:39→17:08)
[2019-02-24] MEDS: HEPARIN NA (PORCINE) 5,000 UNITS/ML 1ML VIAL SQ SCH ×2 (10:39→21:31)
[2019-02-24] MEDS: CLOPIDOGREL BISULFATE 75 MG TABLET (FP) PO SCH (10:39)
[2019-02-24] MEDS: ASPIRIN COATED 81 MG TABLET.EC PO SCH (10:40)
[2019-02-24] MEDS: CARVEDILOL 25 MG TABLET (FP) PO SCH ×2 (10:40→21:31)
[2019-02-24] MEDS: SERTRALINE HCL 25 MG TABLET (FP) PO SCH (10:40)
--- NOTE | 2019-02-24 11:09 | PN ---
Progress Note (short form) - Note Progress Note: Chief Complaint: Events noted, notes reviewed, continues to report persistent dyspnea, denies any chest pain History of Present Illness: Seen and examined on telemetry. Events noted, notes reviewed, continues to report persistent dyspnea, denies any chest pain Echocardiography performed January 10, 2019 revealed mild to moderate reduction in left ventricular systolic function with estimated LVEF between 40-45%, mild left atrial dilatation, poorly visualize right ventricle but grossly normal in size, mild thickening of the mitral valve leaflets with trace mitral valve regurgitation Left heart cardiac catheterization coronary angiography January 09, 2019 revealed triple vessel obstructive coronary artery disease, left main distal 30% diameter stenosis, mid LAD 100% diameter stenosis, proximal LCx 60% diameter stenosis, LCx OM 100% diameter stenosis (post intervention), proximal RCA 100% diameter stenosis, patent DRIVER to mid LAD, SVG to RPDA distal SVG anastomotic stenosis Pharmacologic myocardial perfusion imaging study performed November 27, 2018 revealed large size infero-lateral and hien-lateral wall defect compatible with ischemia with zone of infarct moderate size hien-apical wall defect compatible with ischemia, calculated LV EF of 54%overestimated Medications: Current Medications Albuterol Sulfate (Ventolin 0.083% Nebulizer Soln -) 1 amp NEB Q4H PRN PRN Reason: SHORT OF BREATH/WHEEZING Albuterol/Ipratropium (Duoneb -) 1 amp NEB RQID [facility] Last Admin: 02/23/19 20:47 Dose: 1 amp Aspirin (Ecotrin -) 81 mg PO DAILY [facility] Last Admin: 02/24/19 10:40 Dose: 81 mg Atorvastatin Calcium (Lipitor -) 20 mg PO HS [facility] Last Admin: 02/23/19 22:51 Dose: 20 mg Carvedilol (Coreg -) 25 mg PO BID [facility] Last Admin: 02/24/19 10:40 Dose: 25 mg Clopidogrel Bisulfate (Plavix -) 75 mg PO DAILY [facility] Last Admin: 02/24/19 10:39 Dose: 75 mg Furosemide (Lasix Injection -) 40 mg IVPUSH DAILY [facility] Last Admin: 02/24/19 10:39 Dose: 40 mg Heparin Sodium (Porcine) (Heparin -) 5,000 unit SQ BID [facility] Last Admin: 02/24/19 10:39 Dose: 5,000 unit Isosorbide Mononitrate (Imdur -) 60 mg PO DAILY [facility] Last Admin: 02/24/19 10:39 Dose: 60 mg Methylprednisolone Sodium Succinate (Solu-Medrol -) 40 mg IVPUSH Q8H-IV [facility] Last Admin: 02/24/19 10:39 Dose: 40 mg Sertraline HCl (Zoloft -) 25 mg PO DAILY [facility] Last Admin: 02/24/19 10:40 Dose: 25 mg Review of Systems Constitutional: denies: Chills or Fever Cardiovascular: as noted above Respiratory: denies: Cough Gastrointestinal: denies: Nausea, Vomiting, Diarrhea, Constipation or Abdominal Pain Genitourinary: denies: Dysuria Musculoskeletal: denies: Joint Pain Neurological: denies: Dizziness or Headache Vital Signs: Last Vital Signs Temp Pulse Resp BP Pulse Ox 97.6 F 57 L 22 H 106/52 L 98 02/24/19 05:00 02/24/19 05:00 02/24/19 05:00 02/24/19 05:00 02/24/19 05:30 Intake & Output 02/21/19 02/22/19 02/23/19 02/24/19 23:59 23:59 23:59 23:59 Intake Total 540 1350 920 20 Output Total 2200 3250 600 Balance -1660 -1900 320 20 Weight 283 lb 6.4 oz 280 lb 281 lb 283 lb Constitutional: No Distress, Calm, Thin Respiratory: Diminished at the Bases Bilaterally Cardiovascular: S1 S2 Regular Rate and Rhythm Gastrointestinal: Soft Benign Normal Bowel Sounds Ext: Edema Labs: CBC, BMP 02/24/19 05:40 02/24/19 05:40 Assessment/Plan ASSESSMENT: 1. Acute on chronic class I-II [place] Heart Association classification left ventricular failure related to systolic/diastolic left ventricular dysfunction, resolved 2. Coronary artery disease post myocardial infarction post coronary artery bypass grafting post multi-vessel percutaneous coronary intervention/stenting residual disease angina pectoris 3. Hypertensive cardiovascular disease 4. Hypercholesterolemia 5. Chronic kidney disease, pre-renal azotemia 6. Anemia PLAN: 1. Continue Coreg and Nitrates/Imdur 2. Ideally WENDY inhibitor or angiotensin receptor florinda therapy initiation is recommended provided renal function stabilizes/at baseline, hemodynamics permitting 3. Diuretics with caution, PO Lasix consideration for addition of Aldactone therapy provided renal function stabilizes/at baseline if needed 4. Continue Lipitor therapy 5. Continue Ecotrin and Plavix therapies with caution and close monitoring of hemoglobin 6. May transfer to floor care from the cardiovascular point of view Janet Singh M.D.
--- NOTE | 2019-02-24 13:50 | PN ---
Progress Note, Physician History of Present Illness: on bipap - Current Medication List Current Medications: Active Medications Albuterol Sulfate (Ventolin 0.083% Nebulizer Soln -) 1 amp NEB Q4H PRN PRN Reason: SHORT OF BREATH/WHEEZING Albuterol/Ipratropium (Duoneb -) 1 amp NEB RQID [facility] Last Admin: 02/24/19 11:39 Dose: 1 amp Aspirin (Ecotrin -) 81 mg PO DAILY [facility] Last Admin: 02/24/19 10:40 Dose: 81 mg Atorvastatin Calcium (Lipitor -) 20 mg PO HS [facility] Last Admin: 02/23/19 22:51 Dose: 20 mg Carvedilol (Coreg -) 25 mg PO BID [facility] Last Admin: 02/24/19 10:40 Dose: 25 mg Clopidogrel Bisulfate (Plavix -) 75 mg PO DAILY [facility] Last Admin: 02/24/19 10:39 Dose: 75 mg Furosemide (Lasix Injection -) 40 mg IVPUSH DAILY [facility] Last Admin: 02/24/19 10:39 Dose: 40 mg Heparin Sodium (Porcine) (Heparin -) 5,000 unit SQ BID [facility] Last Admin: 02/24/19 10:39 Dose: 5,000 unit Isosorbide Mononitrate (Imdur -) 60 mg PO DAILY [facility] Last Admin: 02/24/19 10:39 Dose: 60 mg Methylprednisolone Sodium Succinate (Solu-Medrol -) 40 mg IVPUSH Q8H-IV [facility] Last Admin: 02/24/19 10:39 Dose: 40 mg Sertraline HCl (Zoloft -) 25 mg PO DAILY [facility] Last Admin: 02/24/19 10:40 Dose: 25 mg - Objective Vital Signs: Vital Signs Temperature 97.9 F 02/24/19 09:00 Pulse Rate 68 02/24/19 09:00 Respiratory Rate 22 H 02/24/19 09:00 Blood Pressure 124/68 02/24/19 09:00 O2 Sat by Pulse Oximetry (%) 98 02/24/19 09:00 Constitutional: Yes: No Distress HENT: Yes: Atraumatic Neck: Yes: Supple Cardiovascular: Yes: Regular Rate and Rhythm Respiratory: Yes: CTA Bilaterally Gastrointestinal: Yes: Normal Bowel Sounds Extremities: Yes: WNL Edema: Yes Edema: LLE: Trace, RLE: Trace Neurological: Yes: Alert, Oriented Labs: CBC, BMP 02/24/19 05:40 02/24/19 05:40 INR, PTT INR 1.19 (0.83-1.09) H 02/18/19 16:41 Problem List - Problems (1) BiPAP (biphasic positive airway pressure) dependence Code(s): Z99.89 - DEPENDENCE ON OTHER ENABLING MACHINES AND DEVICES (2) CHF exacerbation Assessment/Plan: continue home meds iv lasix Code(s): I50.9 - HEART FAILURE, UNSPECIFIED Qualifiers: Heart failure type: combined systolic and diastolic Qualified Code(s): I50.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 transplanted heart: [place] heart Associated angina: without angina Qualified Code(s): I25.10 - Atherosclerotic heart disease of [place] coronary artery without angina pectoris (4) HTN (hypertension) Assessment/Plan: onm eds monitor Code(s): I10 - ESSENTIAL (PRIMARY) HYPERTENSION Qualifiers: Hypertension type: essential hypertension Qualified Code(s): I10 - Essential (primary) hypertension (5) Hyperlipidemia Assessment/Plan: on lipitor Code(s): E78.5 - HYPERLIPIDEMIA, UNSPECIFIED Qualifiers: Hyperlipidemia type: pure hypercholesterolemia Qualified Code(s): E78.00 - Pure hypercholesterolemia, unspecified; E78.0 - Pure hypercholesterolemia (6) Acute respiratory failure with hypoxia and hypercapnia Assessment/Plan: iv steroids bipap Code(s): J96.01 - ACUTE RESPIRATORY FAILURE WITH HYPOXIA; J96.02 - ACUTE RESPIRATORY FAILURE WITH HYPERCAPNIA (7) Morbid obesity Code(s): E66.01 - MORBID (SEVERE) OBESITY DUE TO EXCESS CALORIES (8) Sleep apnea Code(s): G47.30 - SLEEP APNEA, UNSPECIFIED Qualifiers: Sleep apnea type: obstructive Qualified Code(s): G47.33 - Obstructive sleep apnea (adult) (pediatric)
[2019-02-24] MEDS: ATORVASTATIN CA 20 MG TABLET (FP) PO SCH (21:31)
[2019-02-25] MEDS: methylPREDNISolone NA SUCC 40 MG/1 ML VIAL IVPUSH SCH ×3 (01:22→17:28)
[2019-02-25] MEDS: ALBUTEROL SO4 2.5/IPRATROPIUM 0.5 INH SOL 3 ML VIAL.NEB. NEB SCH ×4 (08:01→20:56)
[2019-02-25] MEDS: ASPIRIN COATED 81 MG TABLET.EC PO SCH (09:41)
[2019-02-25] MEDS: FUROSEMIDE 40 MG/4 ML INJECTABLE VIAL IVPUSH SCH (09:41)
[2019-02-25] MEDS: ISOSORBIDE MONONITRATE 60 MG TAB.SR.24H (FP) PO SCH (09:41)
[2019-02-25] MEDS: HEPARIN NA (PORCINE) 5,000 UNITS/ML 1ML VIAL SQ SCH (09:41)
[2019-02-25] MEDS: SERTRALINE HCL 25 MG TABLET (FP) PO SCH (09:42)
[2019-02-25] MEDS: CARVEDILOL 25 MG TABLET (FP) PO SCH ×2 (09:42→21:14)
[2019-02-25] MEDS: CLOPIDOGREL BISULFATE 75 MG TABLET (FP) PO SCH (09:42)
--- NOTE | 2019-02-25 10:14 | PN ---
Progress Note, Physician History of Present Illness: pulmonary alert feeling better,on bipap - Current Medication List Current Medications: Active Medications Albuterol Sulfate (Ventolin 0.083% Nebulizer Soln -) 1 amp NEB Q4H PRN PRN Reason: SHORT OF BREATH/WHEEZING Albuterol/Ipratropium (Duoneb -) 1 amp NEB RQID [facility] Last Admin: 02/24/19 19:52 Dose: 1 amp Aspirin (Ecotrin -) 81 mg PO DAILY [facility] Last Admin: 02/25/19 09:41 Dose: 81 mg Atorvastatin Calcium (Lipitor -) 20 mg PO HS [facility] Last Admin: 02/24/19 21:31 Dose: 20 mg Carvedilol (Coreg -) 25 mg PO BID [facility] Last Admin: 02/25/19 09:42 Dose: 25 mg Clopidogrel Bisulfate (Plavix -) 75 mg PO DAILY [facility] Last Admin: 02/25/19 09:42 Dose: 75 mg Furosemide (Lasix Injection -) 40 mg IVPUSH DAILY [facility] Last Admin: 02/25/19 09:41 Dose: 40 mg Heparin Sodium (Porcine) (Heparin -) 5,000 unit SQ BID [facility] Last Admin: 02/25/19 09:41 Dose: 5,000 unit Isosorbide Mononitrate (Imdur -) 60 mg PO DAILY [facility] Last Admin: 02/25/19 09:41 Dose: 60 mg Methylprednisolone Sodium Succinate (Solu-Medrol -) 40 mg IVPUSH Q8H-IV [facility] Last Admin: 02/25/19 09:41 Dose: 40 mg Sertraline HCl (Zoloft -) 25 mg PO DAILY [facility] Last Admin: 02/25/19 09:42 Dose: 25 mg - Objective Vital Signs: Vital Signs Temperature 98.2 F 02/25/19 05:00 Pulse Rate 61 02/25/19 05:00 Respiratory Rate 19 02/25/19 05:00 Blood Pressure 127/69 02/25/19 05:00 O2 Sat by Pulse Oximetry (%) 100 02/24/19 21:00 Constitutional: Yes: Calm, Obese HENT: Yes: WNL Neck: Yes: WNL Cardiovascular: Yes: Regular Rate and Rhythm, S1, S2 Respiratory: Yes: Diminished Gastrointestinal: Yes: Normal Bowel Sounds, Soft Extremities: Yes: WNL Edema: Yes Labs: CBC, BMP Problem List - Problems (1) Acute respiratory failure with hypoxia and hypercapnia Code(s): J96.01 - ACUTE RESPIRATORY FAILURE WITH HYPOXIA; J96.02 - ACUTE RESPIRATORY FAILURE WITH HYPERCAPNIA (2) CHF exacerbation Code(s): I50.9 - HEART FAILURE, UNSPECIFIED Qualifiers: Qualified Code(s): I50.43 - Acute on chronic combined systolic (congestive) and diastolic (congestive) heart failure (3) Shortness of breath Code(s): R06.02 - SHORTNESS OF BREATH (4) CAD (coronary artery disease) Code(s): I25.10 - ATHSCL HEART DISEASE OF [place] CORONARY ARTERY W/O ANG PCTRS Qualifiers: Qualified Code(s): I25.10 - Atherosclerotic heart disease of [place] coronary artery without angina pectoris (5) Hyperlipidemia Code(s): E78.5 - HYPERLIPIDEMIA, UNSPECIFIED Qualifiers: Qualified Code(s): E78.00 - Pure hypercholesterolemia, unspecified; E78.0 - Pure hypercholesterolemia (6) Status post coronary artery bypass graft Code(s): Z95.1 - PRESENCE OF AORTOCORONARY BYPASS GRAFT (7) Sleep apnea Code(s): G47.30 - SLEEP APNEA, UNSPECIFIED Qualifiers: Qualified Code(s): G47.33 - Obstructive sleep apnea (adult) (pediatric) (8) Diastolic dysfunction without heart failure Code(s): I51.9 - HEART DISEASE, UNSPECIFIED (9) Morbid obesity Code(s): E66.01 - MORBID (SEVERE) OBESITY DUE TO EXCESS CALORIES Assessment/Plan IMP ACUTE HYPOXEMIC/LIKELY CHRONIC HYPERCAPNEIC RESPIRATORY FAILURE ACUTE ON CHRONIC CHF slowly improving CHEST PAIN RESOLVED COPD ASHD S/P CABG 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 H/O LIVER TRANSPLANT CHRONIC HEP C ANEMIA MORBID OBESITY PLAN LASIX SUPPLEMENTAL O2 INHALED BRONCHODILATORS MEDROL BIPAP AT NIGHT AND PRN DAILY WTS AMBULATORY O2 SAT PRIOR TO DISCHARGE TO DETERMINE IF PT IS A CANDIDATE FOR HOME O2 YEARLY LOW DOSE CHEST CT FOR LUNG CANCER SCREENING MONITOR THANG,H+H DR CRUMP Problem List - Problems (1) Acute respiratory failure with hypoxia and hypercapnia Code(s): J96.01 - ACUTE RESPIRATORY FAILURE WITH HYPOXIA; J96.02 - ACUTE RESPIRATORY FAILURE WITH HYPERCAPNIA (2) CHF exacerbation Code(s): I50.9 - HEART FAILURE, UNSPECIFIED (3) Shortness of breath Code(s): R06.02 - SHORTNESS OF BREATH (4) CAD (coronary artery disease) Code(s): I25.10 - ATHSCL HEART DISEASE OF [place] CORONARY ARTERY W/O ANG PCTRS Qualifiers: (5) Hyperlipidemia Code(s): E78.5 - HYPERLIPIDEMIA, UNSPECIFIED Qualifiers: (6) Status post coronary artery bypass graft Code(s): Z95.1 - PRESENCE OF AORTOCORONARY BYPASS GRAFT (7) Sleep apnea Code(s): G47.30 - SLEEP APNEA, UNSPECIFIED (8) Diastolic dysfunction without heart failure Code(s): I51.9 - HEART DISEASE, UNSPECIFIED (9) Morbid obesity Code(s): E66.01 - MORBID (SEVERE) OBESITY DUE TO EXCESS CALORIES
--- NOTE | 2019-02-25 10:15 | PN ---
Progress Note, Physician Chief Complaint: Events noted Intermittent chest pain History of Present Illness: Patient was seen and examined. Awake and alert. Chart was reviewed As outlined Intermittent chest pain and SOB - Current Medication List Current Medications: Active Medications Albuterol Sulfate (Ventolin 0.083% Nebulizer Soln -) 1 amp NEB Q4H PRN PRN Reason: SHORT OF BREATH/WHEEZING Albuterol/Ipratropium (Duoneb -) 1 amp NEB RQID [facility] Last Admin: 02/24/19 19:52 Dose: 1 amp Aspirin (Ecotrin -) 81 mg PO DAILY [facility] Last Admin: 02/25/19 09:41 Dose: 81 mg Atorvastatin Calcium (Lipitor -) 20 mg PO HS [facility] Last Admin: 02/24/19 21:31 Dose: 20 mg Carvedilol (Coreg -) 25 mg PO BID [facility] Last Admin: 02/25/19 09:42 Dose: 25 mg Clopidogrel Bisulfate (Plavix -) 75 mg PO DAILY [facility] Last Admin: 02/25/19 09:42 Dose: 75 mg Furosemide (Lasix Injection -) 40 mg IVPUSH DAILY [facility] Last Admin: 02/25/19 09:41 Dose: 40 mg Heparin Sodium (Porcine) (Heparin -) 5,000 unit SQ BID [facility] Last Admin: 02/25/19 09:41 Dose: 5,000 unit Isosorbide Mononitrate (Imdur -) 60 mg PO DAILY [facility] Last Admin: 02/25/19 09:41 Dose: 60 mg Methylprednisolone Sodium Succinate (Solu-Medrol -) 40 mg IVPUSH Q8H-IV [facility] Last Admin: 02/25/19 09:41 Dose: 40 mg Sertraline HCl (Zoloft -) 25 mg PO DAILY [facility] Last Admin: 02/25/19 09:42 Dose: 25 mg - Objective Vital Signs: Vital Signs Temperature 98.2 F 02/25/19 05:00 Pulse Rate 61 02/25/19 05:00 Respiratory Rate 19 02/25/19 05:00 Blood Pressure 127/69 02/25/19 05:00 O2 Sat by Pulse Oximetry (%) 100 02/24/19 21:00 HENT: Yes: Atraumatic Neck: Yes: Supple Cardiovascular: Yes: Regular Rate and Rhythm, S1, S2 Respiratory: Yes: Diminished Gastrointestinal: Yes: Normal Bowel Sounds, Soft, Abdomen, Obese. No: Tenderness Edema: Yes Edema: LLE: Trace, RLE: Trace Additional Findings/Remarks: Review of Systems Constitutional: denies: Chills or Fever Cardiovascular: (+) chest pain, (-) palpitations (+) SOB Respiratory: (+) Cough, sputum, denies: hemoptysis Gastrointestinal: denies: Nausea, Vomiting, Diarrhea, Constipation or Abdominal Pain Genitourinary: denies: Dysuria Musculoskeletal: denies: Joint Pain Neurological: denies: Dizziness or Headache denies: seizure, syncope Labs: CBC, BMP 02/24/19 05:40 02/24/19 05:40 Problem List - Problems (1) Acute respiratory failure with hypoxia and hypercapnia Code(s): J96.01 - ACUTE RESPIRATORY FAILURE WITH HYPOXIA; J96.02 - ACUTE RESPIRATORY FAILURE WITH HYPERCAPNIA (2) Shortness of breath Code(s): R06.02 - SHORTNESS OF BREATH (3) Sleep apnea Code(s): G47.30 - SLEEP APNEA, UNSPECIFIED Qualifiers: Sleep apnea type: obstructive Qualified Code(s): G47.33 - Obstructive sleep apnea (adult) (pediatric) (4) CAD (coronary artery disease) Code(s): I25.10 - ATHSCL HEART DISEASE OF [place] CORONARY ARTERY W/O ANG PCTRS Qualifiers: Coronary Disease-Associated Artery/Lesion type: [place] artery [place] vs. transplanted heart: [place] heart Associated angina: without angina Qualified Code(s): I25.10 - Atherosclerotic heart disease of [place] coronary artery without angina pectoris (5) Diastolic dysfunction without heart failure Code(s): I51.9 - HEART DISEASE, UNSPECIFIED (6) HTN (hypertension) Code(s): I10 - ESSENTIAL (PRIMARY) HYPERTENSION Qualifiers: Hypertension type: essential hypertension Qualified Code(s): I10 - Essential (primary) hypertension (7) Hyperlipidemia Code(s): E78.5 - HYPERLIPIDEMIA, UNSPECIFIED Qualifiers: Hyperlipidemia type: pure hypercholesterolemia Qualified Code(s): E78.00 - Pure hypercholesterolemia, unspecified; E78.0 - Pure hypercholesterolemia (8) Status post coronary artery bypass graft Code(s): Z95.1 - PRESENCE OF AORTOCORONARY BYPASS GRAFT (9) Status post coronary artery stent placement Code(s): Z95.5 - PRESENCE OF CORONARY ANGIOPLASTY IMPLANT AND GRAFT Assessment/Plan 1. Acute on chronic class I-II [place] [employer] classification left ventricular failure related to systolic/diastolic left ventricular dysfunction 2. Coronary artery disease post myocardial infarction post coronary artery bypass grafting post multi-vessel percutaneous coronary intervention/stenting residual disease, angina pectoris 3. Hypertensive cardiovascular disease 4. Hypercholesterolemia 5. Chronic kidney disease, pre-renal azotemia 6. Anemia PLAN: 1. Continue Carvedilol and Imdur. May increase dose of Imdur or other option is to use Ranexa 2. Ideally WENDY inhibitor or angiotensin receptor florinda therapy initiation is recommended provided renal function stabilizes/at baseline 3. Diuretics with caution, PO Lasix. Consider Aldactone therapy provided renal function stabilizes and if clinically needed 4. Continue Lipitor 5. Continue Ecotrin and Plavix with caution Further plans are to follow Rafa Kwok MD
--- NOTE | 2019-02-25 19:36 | PN ---
Progress Note, Physician History of Present Illness: still has sob - Current Medication List Current Medications: Active Medications Albuterol Sulfate (Ventolin 0.083% Nebulizer Soln -) 1 amp NEB Q4H PRN PRN Reason: SHORT OF BREATH/WHEEZING Albuterol/Ipratropium (Duoneb -) 1 amp NEB RQID [facility] Last Admin: 02/25/19 16:02 Dose: 1 amp Aspirin (Ecotrin -) 81 mg PO DAILY [facility] Last Admin: 02/25/19 09:41 Dose: 81 mg Atorvastatin Calcium (Lipitor -) 20 mg PO HS [facility] Last Admin: 02/24/19 21:31 Dose: 20 mg Carvedilol (Coreg -) 25 mg PO BID [facility] Last Admin: 02/25/19 09:42 Dose: 25 mg Clopidogrel Bisulfate (Plavix -) 75 mg PO DAILY [facility] Last Admin: 02/25/19 09:42 Dose: 75 mg Furosemide (Lasix Injection -) 40 mg IVPUSH DAILY [facility] Last Admin: 02/25/19 09:41 Dose: 40 mg Heparin Sodium (Porcine) (Heparin -) 5,000 unit SQ BID [facility] Last Admin: 02/25/19 09:41 Dose: 5,000 unit Isosorbide Mononitrate (Imdur -) 90 mg PO DAILY [facility] Methylprednisolone Sodium Succinate (Solu-Medrol -) 40 mg IVPUSH Q8H-IV [facility] Last Admin: 02/25/19 17:28 Dose: 40 mg Sertraline HCl (Zoloft -) 25 mg PO DAILY [facility] Last Admin: 02/25/19 09:42 Dose: 25 mg - Objective Vital Signs: Vital Signs Temperature 97.4 F L 02/25/19 14:00 Pulse Rate 72 02/25/19 14:00 Respiratory Rate 19 02/25/19 09:00 Blood Pressure 157/77 02/25/19 14:00 O2 Sat by Pulse Oximetry (%) 100 02/25/19 14:05 Constitutional: Yes: No Distress HENT: Yes: Atraumatic Neck: Yes: Supple Cardiovascular: Yes: Regular Rate and Rhythm Respiratory: Yes: Rhonchi, Wheezes Gastrointestinal: Yes: Normal Bowel Sounds Extremities: Yes: WNL Edema: Yes Edema: LLE: Trace, RLE: Trace Neurological: Yes: Alert, Oriented Labs: CBC, BMP 02/24/19 05:40 02/24/19 05:40 INR, PTT INR 1.19 (0.83-1.09) H 02/18/19 16:41 Problem List - Problems (1) BiPAP (biphasic positive airway pressure) dependence Code(s): Z99.89 - DEPENDENCE ON OTHER ENABLING MACHINES AND DEVICES (2) CHF exacerbation Assessment/Plan: continue home meds iv lasix Code(s): I50.9 - HEART FAILURE, UNSPECIFIED Qualifiers: Heart failure type: combined systolic and diastolic Qualified Code(s): I50.43 - 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 transplanted heart: [place] heart Associated angina: without angina Qualified Code(s): I25.10 - Atherosclerotic heart disease of [place] coronary artery without angina pectoris (4) HTN (hypertension) Assessment/Plan: onm eds monitor Code(s): I10 - ESSENTIAL (PRIMARY) HYPERTENSION Qualifiers: Hypertension type: essential hypertension Qualified Code(s): I10 - Essential (primary) hypertension (5) Hyperlipidemia Assessment/Plan: on lipitor Code(s): E78.5 - HYPERLIPIDEMIA, UNSPECIFIED Qualifiers: Hyperlipidemia type: pure hypercholesterolemia Qualified Code(s): E78.00 - Pure hypercholesterolemia, unspecified; E78.0 - Pure hypercholesterolemia (6) Acute respiratory failure with hypoxia and hypercapnia Assessment/Plan: iv steroids bipap Code(s): J96.01 - ACUTE RESPIRATORY FAILURE WITH HYPOXIA; J96.02 - ACUTE RESPIRATORY FAILURE WITH HYPERCAPNIA (7) Morbid obesity Code(s): E66.01 - MORBID (SEVERE) OBESITY DUE TO EXCESS CALORIES (8) Sleep apnea Code(s): G47.30 - SLEEP APNEA, UNSPECIFIED Qualifiers: Sleep apnea type: obstructive Qualified Code(s): G47.33 - Obstructive sleep apnea (adult) (pediatric)
[2019-02-25] MEDS: ATORVASTATIN CA 20 MG TABLET (FP) PO SCH (21:14)
[2019-02-26] MEDS: methylPREDNISolone NA SUCC 40 MG/1 ML VIAL IVPUSH SCH ×4 (01:26→22:11)
[2019-02-26] MEDS: ALBUTEROL SO4 2.5/IPRATROPIUM 0.5 INH SOL 3 ML VIAL.NEB. NEB SCH ×4 (07:25→20:55)
--- NOTE | 2019-02-26 10:13 | PN ---
Progress Note, Physician Chief Complaint: Events noted Intermittent chest pain improved History of Present Illness: Patient was seen and examined. Awake and alert. Chart was reviewed Denies chest pain today Intermittent SOB - Current Medication List Current Medications: Active Medications Albuterol Sulfate (Ventolin 0.083% Nebulizer Soln -) 1 amp NEB Q4H PRN PRN Reason: SHORT OF BREATH/WHEEZING Last Admin: 02/26/19 03:20 Dose: 1 amp Albuterol/Ipratropium (Duoneb -) 1 amp NEB RQID [facility] Last Admin: 02/26/19 07:25 Dose: 1 amp Aspirin (Ecotrin -) 81 mg PO DAILY [facility] Last Admin: 02/25/19 09:41 Dose: 81 mg Atorvastatin Calcium (Lipitor -) 20 mg PO HS [facility] Last Admin: 02/25/19 21:14 Dose: 20 mg Carvedilol (Coreg -) 25 mg PO BID [facility] Last Admin: 02/25/19 21:14 Dose: 25 mg Clopidogrel Bisulfate (Plavix -) 75 mg PO DAILY [facility] Last Admin: 02/25/19 09:42 Dose: 75 mg Furosemide (Lasix Injection -) 40 mg IVPUSH DAILY [facility] Last Admin: 02/25/19 09:41 Dose: 40 mg Isosorbide Mononitrate (Imdur -) 90 mg PO DAILY [facility] Methylprednisolone Sodium Succinate (Solu-Medrol -) 40 mg IVPUSH Q8H-IV [facility] Last Admin: 02/26/19 01:26 Dose: 40 mg Sertraline HCl (Zoloft -) 25 mg PO DAILY [facility] Last Admin: 02/25/19 09:42 Dose: 25 mg - Objective Vital Signs: Vital Signs Temperature 97.9 F 02/26/19 08:55 Pulse Rate 76 02/26/19 08:55 Respiratory Rate 20 02/26/19 08:57 Blood Pressure 113/61 02/26/19 08:55 O2 Sat by Pulse Oximetry (%) 98 02/26/19 08:57 Eyes: Yes: PERRL HENT: Yes: Atraumatic Neck: Yes: Supple Cardiovascular: Yes: Regular Rate and Rhythm, S1, S2 Respiratory: Yes: Diminished Gastrointestinal: Yes: Normal Bowel Sounds, Soft, Abdomen, Obese. No: Tenderness Edema: Yes Edema: LLE: Trace, RLE: Trace Additional Findings/Remarks: Review of Systems Constitutional: denies: Chills or Fever Cardiovascular: (+) chest pain, (-) palpitations (+) SOB Respiratory: (+) Cough, sputum, denies: hemoptysis Gastrointestinal: denies: Nausea, Vomiting, Diarrhea, Constipation or Abdominal Pain Genitourinary: denies: Dysuria Musculoskeletal: denies: Joint Pain Neurological: denies: Dizziness or Headache denies: seizure, syncope Problem List - Problems (1) Acute respiratory failure with hypoxia and hypercapnia Code(s): J96.01 - ACUTE RESPIRATORY FAILURE WITH HYPOXIA; J96.02 - ACUTE RESPIRATORY FAILURE WITH HYPERCAPNIA (2) Shortness of breath Code(s): R06.02 - SHORTNESS OF BREATH (3) Sleep apnea Code(s): G47.30 - SLEEP APNEA, UNSPECIFIED Qualifiers: Sleep apnea type: obstructive Qualified Code(s): G47.33 - Obstructive sleep apnea (adult) (pediatric) (4) CAD (coronary artery disease) Code(s): I25.10 - ATHSCL HEART DISEASE OF [place] CORONARY ARTERY W/O ANG PCTRS Qualifiers: Coronary Disease-Associated Artery/Lesion type: [place] artery [place] vs. transplanted heart: [place] heart Associated angina: without angina Qualified Code(s): I25.10 - Atherosclerotic heart disease of [place] coronary artery without angina pectoris (5) Diastolic dysfunction without heart failure Code(s): I51.9 - HEART DISEASE, UNSPECIFIED (6) HTN (hypertension) Code(s): I10 - ESSENTIAL (PRIMARY) HYPERTENSION Qualifiers: Hypertension type: essential hypertension Qualified Code(s): I10 - Essential (primary) hypertension (7) Hyperlipidemia Code(s): E78.5 - HYPERLIPIDEMIA, UNSPECIFIED Qualifiers: Hyperlipidemia type: pure hypercholesterolemia Qualified Code(s): E78.00 - Pure hypercholesterolemia, unspecified; E78.0 - Pure hypercholesterolemia (8) Status post coronary artery bypass graft Code(s): Z95.1 - PRESENCE OF AORTOCORONARY BYPASS GRAFT (9) Status post coronary artery stent placement Code(s): Z95.5 - PRESENCE OF CORONARY ANGIOPLASTY IMPLANT AND GRAFT Assessment/Plan 1. Acute on chronic class I-II [place] Heart Association classification left ventricular failure related to systolic/diastolic left ventricular dysfunction 2. Coronary artery disease post myocardial infarction post coronary artery bypass grafting post multi-vessel percutaneous coronary intervention/stenting residual disease, angina pectoris 3. Hypertensive cardiovascular disease 4. Hypercholesterolemia 5. Chronic kidney disease, pre-renal azotemia 6. Anemia PLAN: 1. Continue Carvedilol and Imdur. If patient continue to have chest pain, may consider Ranexa therapy 2. Ideally WENDY inhibitor or angiotensin receptor [place] therapy initiation is recommended provided renal function stabilizes and returns to baseline 3. Diuretics with caution, Currently on IV Lasix eventually to be switched to PO. Consider Aldactone therapy provided renal function stabilizes and if clinically needed 4. Continue Lipitor 5. Continue Ecotrin and Plavix with caution Further plans are to follow Rafa Kwok MD
[2019-02-26] MEDS: CLOPIDOGREL BISULFATE 75 MG TABLET (FP) PO SCH (10:30)
[2019-02-26] MEDS: FUROSEMIDE 40 MG/4 ML INJECTABLE VIAL IVPUSH SCH (10:30)
[2019-02-26] MEDS: CARVEDILOL 25 MG TABLET (FP) PO SCH ×2 (10:30→22:12)
[2019-02-26] MEDS: ISOSORBIDE MONONITRATE 30 MG TAB.SR.24H (FP) PO SCH (10:30)
[2019-02-26] MEDS: SERTRALINE HCL 25 MG TABLET (FP) PO SCH (10:30)
[2019-02-26] MEDS: ASPIRIN COATED 81 MG TABLET.EC PO SCH (10:30)
--- NOTE | 2019-02-26 11:07 | PN ---
Progress Note, Physician History of Present Illness: pulmonary alert,oob-chair,less dyspneic,c/o mild cp - Current Medication List Current Medications: Active Medications Albuterol Sulfate (Ventolin 0.083% Nebulizer Soln -) 1 amp NEB Q4H PRN PRN Reason: SHORT OF BREATH/WHEEZING Last Admin: 02/26/19 03:20 Dose: 1 amp Albuterol/Ipratropium (Duoneb -) 1 amp NEB RQID [facility] Last Admin: 02/26/19 07:25 Dose: 1 amp Aspirin (Ecotrin -) 81 mg PO DAILY [facility] Last Admin: 02/26/19 10:30 Dose: 81 mg Atorvastatin Calcium (Lipitor -) 20 mg PO HS [facility] Last Admin: 02/25/19 21:14 Dose: 20 mg Carvedilol (Coreg -) 25 mg PO BID [facility] Last Admin: 02/26/19 10:30 Dose: 25 mg Clopidogrel Bisulfate (Plavix -) 75 mg PO DAILY [facility] Last Admin: 02/26/19 10:30 Dose: 75 mg Furosemide (Lasix Injection -) 40 mg IVPUSH DAILY [facility] Last Admin: 02/26/19 10:30 Dose: 40 mg Isosorbide Mononitrate (Imdur -) 90 mg PO DAILY [facility] Last Admin: 02/26/19 10:30 Dose: 90 mg Methylprednisolone Sodium Succinate (Solu-Medrol -) 40 mg IVPUSH Q8H-IV [facility] Last Admin: 02/26/19 10:30 Dose: 40 mg Sertraline HCl (Zoloft -) 25 mg PO DAILY [facility] Last Admin: 02/26/19 10:30 Dose: 25 mg - Objective Vital Signs: Vital Signs Temperature 97.9 F 02/26/19 08:55 Pulse Rate 76 02/26/19 08:55 Respiratory Rate 20 02/26/19 08:57 Blood Pressure 113/61 02/26/19 08:55 O2 Sat by Pulse Oximetry (%) 98 02/26/19 08:57 Constitutional: Yes: Calm, Obese Eyes: Yes: WNL HENT: Yes: WNL Neck: Yes: WNL Cardiovascular: Yes: Pulse Irregular, S1, S2 Respiratory: Yes: Diminished Gastrointestinal: Yes: Normal Bowel Sounds, Soft Extremities: Yes: WNL Edema: Yes Labs: CBC, BMP Problem List - Problems (1) Acute respiratory failure with hypoxia and hypercapnia Code(s): J96.01 - ACUTE RESPIRATORY FAILURE WITH HYPOXIA; J96.02 - ACUTE RESPIRATORY FAILURE WITH HYPERCAPNIA (2) CHF exacerbation Code(s): I50.9 - HEART FAILURE, UNSPECIFIED Qualifiers: Heart failure type: combined systolic and diastolic Qualified Code(s): I50.43 - Acute on chronic combined systolic (congestive) and diastolic ( congestive) heart failure (3) Shortness of breath Code(s): R06.02 - SHORTNESS OF BREATH (4) CAD (coronary artery disease) Code(s): I25.10 - ATHSCL HEART DISEASE OF [place] CORONARY ARTERY W/O ANG PCTRS Qualifiers: Coronary Disease-Associated Artery/Lesion type: [place] artery [place] vs. transplanted heart: [place] heart Associated angina: without angina Qualified Code(s): I25.10 - Atherosclerotic heart disease of [place] coronary artery without angina pectoris (5) Hyperlipidemia Code(s): E78.5 - HYPERLIPIDEMIA, UNSPECIFIED Qualifiers: Hyperlipidemia type: pure hypercholesterolemia Qualified Code(s): E78.00 - Pure hypercholesterolemia, unspecified; E78.0 - Pure hypercholesterolemia (6) Status post coronary artery bypass graft Code(s): Z95.1 - PRESENCE OF AORTOCORONARY BYPASS GRAFT (7) Sleep apnea Code(s): G47.30 - SLEEP APNEA, UNSPECIFIED Qualifiers: Sleep apnea type: obstructive Qualified Code(s): G47.33 - Obstructive sleep apnea (adult) (pediatric) (8) Diastolic dysfunction without heart failure Code(s): I51.9 - HEART DISEASE, UNSPECIFIED (9) Morbid obesity Code(s): E66.01 - MORBID (SEVERE) OBESITY DUE TO EXCESS CALORIES Assessment/Plan IMP ACUTE HYPOXEMIC/LIKELY CHRONIC HYPERCAPNEIC RESPIRATORY FAILURE ACUTE ON CHRONIC CHF slowly improving CHEST PAIN COPD ASHD S/P CABG 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 H/O LIVER TRANSPLANT CHRONIC HEP C ANEMIA MORBID OBESITY PLAN LASIX SUPPLEMENTAL O2 INHALED BRONCHODILATORS MEDROL taper BIPAP AT NIGHT AND PRN DAILY [facility] AMBULATORY O2 SAT PRIOR TO DISCHARGE TO DETERMINE IF PT IS A CANDIDATE FOR HOME O2 YEARLY LOW DOSE CHEST CT FOR LUNG CANCER SCREENING MONITOR THANG,H+H DR CRUMP Problem List - Problems (1) Acute respiratory failure with hypoxia and hypercapnia Code(s): J96.01 - ACUTE RESPIRATORY FAILURE WITH HYPOXIA; J96.02 - ACUTE RESPIRATORY FAILURE WITH HYPERCAPNIA (2) CHF exacerbation Code(s): I50.9 - HEART FAILURE, UNSPECIFIED (3) Shortness of breath Code(s): R06.02 - SHORTNESS OF BREATH (4) CAD (coronary artery disease) Code(s): I25.10 - ATHSCL HEART DISEASE OF [place] CORONARY ARTERY W/O ANG PCTRS Qualifiers: (5) Hyperlipidemia Code(s): E78.5 - HYPERLIPIDEMIA, UNSPECIFIED Qualifiers: (6) Status post coronary artery bypass graft Code(s): Z95.1 - PRESENCE OF AORTOCORONARY BYPASS GRAFT (7) Sleep apnea Code(s): G47.30 - SLEEP APNEA, UNSPECIFIED (8) Diastolic dysfunction without heart failure Code(s): I51.9 - HEART DISEASE, UNSPECIFIED (9) Morbid obesity Code(s): E66.01 - MORBID (SEVERE) OBESITY DUE TO EXCESS CALORIES
--- NOTE | 2019-02-26 17:17 | PN ---
Progress Note, Physician History of Present Illness: still has sob - Current Medication List Current Medications: Active Medications Albuterol Sulfate (Ventolin 0.083% Nebulizer Soln -) 1 amp NEB Q4H PRN PRN Reason: SHORT OF BREATH/WHEEZING Last Admin: 02/26/19 03:20 Dose: 1 amp Albuterol/Ipratropium (Duoneb -) 1 amp NEB RQID [facility] Last Admin: 02/26/19 16:02 Dose: 1 amp Aspirin (Ecotrin -) 81 mg PO DAILY [facility] Last Admin: 02/26/19 10:30 Dose: 81 mg Atorvastatin Calcium (Lipitor -) 20 mg PO HS [facility] Last Admin: 02/25/19 21:14 Dose: 20 mg Carvedilol (Coreg -) 25 mg PO BID [facility] Last Admin: 02/26/19 10:30 Dose: 25 mg Clopidogrel Bisulfate (Plavix -) 75 mg PO DAILY [facility] Last Admin: 02/26/19 10:30 Dose: 75 mg Furosemide (Lasix Injection -) 40 mg IVPUSH DAILY [facility] Last Admin: 02/26/19 10:30 Dose: 40 mg Isosorbide Mononitrate (Imdur -) 90 mg PO DAILY [facility] Last Admin: 02/26/19 10:30 Dose: 90 mg Methylprednisolone Sodium Succinate (Solu-Medrol -) 40 mg IVPUSH BID [facility] Last Admin: 02/26/19 12:47 Dose: Not Given Sertraline HCl (Zoloft -) 25 mg PO DAILY [facility] Last Admin: 02/26/19 10:30 Dose: 25 mg - Objective Vital Signs: Vital Signs Temperature 98.2 F 02/26/19 14:00 Pulse Rate 65 02/26/19 14:00 Respiratory Rate 20 02/26/19 08:57 Blood Pressure 124/58 L 02/26/19 14:00 O2 Sat by Pulse Oximetry (%) 99 02/26/19 16:00 Constitutional: Yes: No Distress HENT: Yes: Atraumatic Neck: Yes: Supple Cardiovascular: Yes: Regular Rate and Rhythm Respiratory: Yes: Rhonchi Gastrointestinal: Yes: Normal Bowel Sounds Extremities: Yes: WNL Edema: No Labs: CBC, BMP 02/24/19 05:40 02/24/19 05:40 INR, PTT INR 1.19 (0.83-1.09) H 02/18/19 16:41 Problem List - Problems (1) BiPAP (biphasic positive airway pressure) dependence Assessment/Plan: iv steroids Code(s): Z99.89 - DEPENDENCE ON OTHER ENABLING MACHINES AND DEVICES (2) CHF exacerbation Assessment/Plan: continue home meds iv lasix Code(s): I50.9 - HEART FAILURE, UNSPECIFIED Qualifiers: Heart failure type: combined systolic and diastolic Qualified Code(s): I50.43 - Acute on chronic combined systolic (congestive) and diastolic ( congestive) heart failure (3) CAD (coronary artery disease) Code(s): I25.10 - ATHSCL HEART DISEASE OF [place] CORONARY ARTERY W/O ANG PCTRS Qualifiers: Coronary Disease-Associated Artery/Lesion type: [place] artery [place] vs. transplanted heart: [place] heart Associated angina: without angina Qualified Code(s): I25.10 - Atherosclerotic heart disease of [place] coronary artery without angina pectoris (4) HTN (hypertension) Assessment/Plan: on meds monitor Code(s): I10 - ESSENTIAL (PRIMARY) HYPERTENSION Qualifiers: Hypertension type: essential hypertension Qualified Code(s): I10 - Essential (primary) hypertension (5) Hyperlipidemia Assessment/Plan: on lipitor Code(s): E78.5 - HYPERLIPIDEMIA, UNSPECIFIED Qualifiers: Hyperlipidemia type: pure hypercholesterolemia Qualified Code(s): E78.00 - Pure hypercholesterolemia, unspecified; E78.0 - Pure hypercholesterolemia (6) Acute respiratory failure with hypoxia and hypercapnia Assessment/Plan: iv steroids bipap Code(s): J96.01 - ACUTE RESPIRATORY FAILURE WITH HYPOXIA; J96.02 - ACUTE RESPIRATORY FAILURE WITH HYPERCAPNIA (7) Morbid obesity Code(s): E66.01 - MORBID (SEVERE) OBESITY DUE TO EXCESS CALORIES (8) Sleep apnea Code(s): G47.30 - SLEEP APNEA, UNSPECIFIED Qualifiers: Sleep apnea type: obstructive Qualified Code(s): G47.33 - Obstructive sleep apnea (adult) (pediatric)
[2019-02-26] MEDS: ATORVASTATIN CA 20 MG TABLET (FP) PO SCH (22:12)
[2019-02-27] MEDS: ALBUTEROL SO4 2.5/IPRATROPIUM 0.5 INH SOL 3 ML VIAL.NEB. NEB SCH ×4 (07:30→20:27)
--- NOTE | 2019-02-27 08:39 | PN ---
Progress Note, Physician Chief Complaint: Events noted Not in distress History of Present Illness: Patient was seen and examined. Awake and alert. Chart was reviewed Denies chest pain today Intermittent SOB - Current Medication List Current Medications: Active Medications Albuterol Sulfate (Ventolin 0.083% Nebulizer Soln -) 1 amp NEB Q4H PRN PRN Reason: SHORT OF BREATH/WHEEZING Last Admin: 02/26/19 03:20 Dose: 1 amp Albuterol/Ipratropium (Duoneb -) 1 amp NEB RQID [facility] Last Admin: 02/27/19 07:30 Dose: 1 amp Aspirin (Ecotrin -) 81 mg PO DAILY [facility] Last Admin: 02/26/19 10:30 Dose: 81 mg Atorvastatin Calcium (Lipitor -) 20 mg PO HS [facility] Last Admin: 02/26/19 22:12 Dose: 20 mg Carvedilol (Coreg -) 25 mg PO BID [facility] Last Admin: 02/26/19 22:12 Dose: 25 mg Clopidogrel Bisulfate (Plavix -) 75 mg PO DAILY [facility] Last Admin: 02/26/19 10:30 Dose: 75 mg Furosemide (Lasix Injection -) 40 mg IVPUSH DAILY [facility] Last Admin: 02/26/19 10:30 Dose: 40 mg Isosorbide Mononitrate (Imdur -) 90 mg PO DAILY [facility] Last Admin: 02/26/19 10:30 Dose: 90 mg Methylprednisolone Sodium Succinate (Solu-Medrol -) 40 mg IVPUSH BID [facility] Last Admin: 02/26/19 22:11 Dose: 40 mg Sertraline HCl (Zoloft -) 25 mg PO DAILY [facility] Last Admin: 02/26/19 10:30 Dose: 25 mg - Objective Vital Signs: Vital Signs Temperature 98 F 02/27/19 06:11 Pulse Rate 63 02/27/19 06:11 Respiratory Rate 18 02/27/19 06:11 Blood Pressure 140/80 02/27/19 06:11 O2 Sat by Pulse Oximetry (%) 99 02/27/19 02:15 Eyes: Yes: PERRL HENT: Yes: Atraumatic Neck: Yes: Supple Cardiovascular: Yes: Regular Rate and Rhythm, S1, S2 Respiratory: Yes: Diminished Gastrointestinal: Yes: Normal Bowel Sounds, Soft, Abdomen, Obese. No: Tenderness Edema: Yes Edema: LLE: Trace, RLE: Trace Additional Findings/Remarks: Review of Systems Constitutional: denies: Chills or Fever Cardiovascular: (+) chest pain, (-) palpitations (+) SOB Respiratory: (+) Cough, sputum, denies: hemoptysis Gastrointestinal: denies: Nausea, Vomiting, Diarrhea, Constipation or Abdominal Pain Genitourinary: denies: Dysuria Musculoskeletal: denies: Joint Pain Neurological: denies: Dizziness or Headache denies: seizure, syncope Problem List - Problems (1) Acute respiratory failure with hypoxia and hypercapnia Code(s): J96.01 - ACUTE RESPIRATORY FAILURE WITH HYPOXIA; J96.02 - ACUTE RESPIRATORY FAILURE WITH HYPERCAPNIA (2) Shortness of breath Code(s): R06.02 - SHORTNESS OF BREATH (3) Sleep apnea Code(s): G47.30 - SLEEP APNEA, UNSPECIFIED Qualifiers: Sleep apnea type: obstructive Qualified Code(s): G47.33 - Obstructive sleep apnea (adult) (pediatric) (4) CAD (coronary artery disease) Code(s): I25.10 - ATHSCL HEART DISEASE OF [place] CORONARY ARTERY W/O ANG PCTRS Qualifiers: Coronary Disease-Associated Artery/Lesion type: [place] artery [place] vs. transplanted heart: [place] heart Associated angina: without angina Qualified Code(s): I25.10 - Atherosclerotic heart disease of [place] coronary artery without angina pectoris (5) Diastolic dysfunction without heart failure Code(s): I51.9 - HEART DISEASE, UNSPECIFIED (6) HTN (hypertension) Code(s): I10 - ESSENTIAL (PRIMARY) HYPERTENSION Qualifiers: Hypertension type: essential hypertension Qualified Code(s): I10 - Essential (primary) hypertension (7) Hyperlipidemia Code(s): E78.5 - HYPERLIPIDEMIA, UNSPECIFIED Qualifiers: Hyperlipidemia type: pure hypercholesterolemia Qualified Code(s): E78.00 - Pure hypercholesterolemia, unspecified; E78.0 - Pure hypercholesterolemia (8) Status post coronary artery bypass graft Code(s): Z95.1 - PRESENCE OF AORTOCORONARY BYPASS GRAFT (9) Status post coronary artery stent placement Code(s): Z95.5 - PRESENCE OF CORONARY ANGIOPLASTY IMPLANT AND GRAFT Assessment/Plan 1. Acute on chronic class I-II [place] Heart Association classification left ventricular failure related to systolic/diastolic left ventricular dysfunction 2. Coronary artery disease post myocardial infarction post coronary artery bypass grafting post multi-vessel percutaneous coronary intervention/stenting residual disease, angina pectoris 3. Hypertensive cardiovascular disease 4. Hypercholesterolemia 5. Chronic kidney disease, pre-renal azotemia 6. Anemia PLAN: 1. Continue Carvedilol and Imdur. If patient continue to have chest pain, may consider Ranexa therapy 2. Ideally WENDY inhibitor or angiotensin receptor [place] therapy initiation is recommended provided renal function stabilizes and returns to baseline 3. Diuretics with caution, Currently on IV Lasix eventually to be switched to PO. Consider Aldactone therapy provided renal function stabilizes and if clinically needed 4. Continue Lipitor 5. Continue Ecotrin and Plavix with caution 6. Steroid taper and bronchodilator Further plans are to follow Rafa Kwok MD
[2019-02-27] MEDS: methylPREDNISolone NA SUCC 40 MG/1 ML VIAL IVPUSH SCH ×2 (09:28→22:52)
[2019-02-27] MEDS: CARVEDILOL 25 MG TABLET (FP) PO SCH ×2 (09:28→22:52)
[2019-02-27] MEDS: ISOSORBIDE MONONITRATE 30 MG TAB.SR.24H (FP) PO SCH (09:28)
[2019-02-27] MEDS: ASPIRIN COATED 81 MG TABLET.EC PO SCH (09:28)
[2019-02-27] MEDS: SERTRALINE HCL 25 MG TABLET (FP) PO SCH (09:28)
[2019-02-27] MEDS: CLOPIDOGREL BISULFATE 75 MG TABLET (FP) PO SCH (09:28)
[2019-02-27] MEDS: FUROSEMIDE 40 MG/4 ML INJECTABLE VIAL IVPUSH SCH (09:28)
--- NOTE | 2019-02-27 10:58 | PN ---
Progress Note, Physician History of Present Illness: PULMONARY ALERT,FEELING BETTER,LESS DYSPNEIC ON NASAL CANNULA - Current Medication List Current Medications: Active Medications Albuterol Sulfate (Ventolin 0.083% Nebulizer Soln -) 1 amp NEB Q4H PRN PRN Reason: SHORT OF BREATH/WHEEZING Last Admin: 02/26/19 03:20 Dose: 1 amp Albuterol/Ipratropium (Duoneb -) 1 amp NEB RQID [facility] Last Admin: 02/27/19 07:30 Dose: 1 amp Aspirin (Ecotrin -) 81 mg PO DAILY [facility] Last Admin: 02/27/19 09:28 Dose: 81 mg Atorvastatin Calcium (Lipitor -) 20 mg PO HS [facility] Last Admin: 02/26/19 22:12 Dose: 20 mg Carvedilol (Coreg -) 25 mg PO BID [facility] Last Admin: 02/27/19 09:28 Dose: 25 mg Clopidogrel Bisulfate (Plavix -) 75 mg PO DAILY [facility] Last Admin: 02/27/19 09:28 Dose: 75 mg Furosemide (Lasix Injection -) 40 mg IVPUSH DAILY [facility] Last Admin: 02/27/19 09:28 Dose: 40 mg Isosorbide Mononitrate (Imdur -) 90 mg PO DAILY [facility] Last Admin: 02/27/19 09:28 Dose: 90 mg Methylprednisolone Sodium Succinate (Solu-Medrol -) 40 mg IVPUSH BID [facility] Last Admin: 02/27/19 09:28 Dose: 40 mg Sertraline HCl (Zoloft -) 25 mg PO DAILY [facility] Last Admin: 02/27/19 09:28 Dose: 25 mg - Objective Vital Signs: Vital Signs Temperature 98 F 02/27/19 09:23 Pulse Rate 75 02/27/19 09:23 Respiratory Rate 20 02/27/19 09:23 Blood Pressure 148/75 02/27/19 09:23 O2 Sat by Pulse Oximetry (%) 99 02/27/19 02:15 Constitutional: Yes: Anxious, Obese Eyes: Yes: WNL HENT: Yes: WNL Neck: Yes: WNL Cardiovascular: Yes: Pulse Irregular, S1, S2 Respiratory: Yes: Diminished Gastrointestinal: Yes: Normal Bowel Sounds, Soft Extremities: Yes: WNL Edema: Yes Labs: Problem List - Problems (1) Acute respiratory failure with hypoxia and hypercapnia Code(s): J96.01 - ACUTE RESPIRATORY FAILURE WITH HYPOXIA; J96.02 - ACUTE RESPIRATORY FAILURE WITH HYPERCAPNIA (2) CHF exacerbation Code(s): I50.9 - HEART FAILURE, UNSPECIFIED Qualifiers: Heart failure type: combined systolic and diastolic Qualified Code(s): I50.43 - Acute on chronic combined systolic (congestive) and diastolic ( congestive) heart failure (3) Shortness of breath Code(s): R06.02 - SHORTNESS OF BREATH (4) CAD (coronary artery disease) Code(s): I25.10 - ATHSCL HEART DISEASE OF [place] CORONARY ARTERY W/O ANG PCTRS Qualifiers: Coronary Disease-Associated Artery/Lesion type: [place] artery [place] vs. transplanted heart: [place] heart Associated angina: without angina Qualified Code(s): I25.10 - Atherosclerotic heart disease of [place] coronary artery without angina pectoris (5) Hyperlipidemia Code(s): E78.5 - HYPERLIPIDEMIA, UNSPECIFIED Qualifiers: Hyperlipidemia type: pure hypercholesterolemia Qualified Code(s): E78.00 - Pure hypercholesterolemia, unspecified; E78.0 - Pure hypercholesterolemia (6) Status post coronary artery bypass graft Code(s): Z95.1 - PRESENCE OF AORTOCORONARY BYPASS GRAFT (7) Sleep apnea Code(s): G47.30 - SLEEP APNEA, UNSPECIFIED Qualifiers: Sleep apnea type: obstructive Qualified Code(s): G47.33 - Obstructive sleep apnea (adult) (pediatric) (8) Diastolic dysfunction without heart failure Code(s): I51.9 - HEART DISEASE, UNSPECIFIED (9) Morbid obesity Code(s): E66.01 - MORBID (SEVERE) OBESITY DUE TO EXCESS CALORIES Assessment/Plan IMP ACUTE HYPOXEMIC/LIKELY CHRONIC HYPERCAPNEIC RESPIRATORY FAILURE ACUTE ON CHRONIC CHF slowly improving CHEST PAIN COPD ASHD 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 H/O LIVER TRANSPLANT CHRONIC HEP C ANEMIA MORBID OBESITY PLAN LASIX SUPPLEMENTAL O2 INHALED BRONCHODILATORS MEDROL taper BIPAP AT NIGHT AND PRN DAILY WTS AMBULATORY O2 SAT PRIOR TO DISCHARGE TO DETERMINE IF PT IS A CANDIDATE FOR HOME O2 YEARLY LOW DOSE CHEST CT FOR LUNG CANCER SCREENING MONITOR LYTES,H+H PT CONSIDER SHORT TERM PULMONARY REHAB POST DISCHARGE WT REDUCTION DR CRUMP Problem List - Problems (1) Acute respiratory failure with hypoxia and hypercapnia Code(s): J96.01 - ACUTE RESPIRATORY FAILURE WITH HYPOXIA; J96.02 - ACUTE RESPIRATORY FAILURE WITH HYPERCAPNIA (2) CHF exacerbation Code(s): I50.9 - HEART FAILURE, UNSPECIFIED (3) Shortness of breath Code(s): R06.02 - SHORTNESS OF BREATH (4) CAD (coronary artery disease) Code(s): I25.10 - ATHSCL HEART DISEASE OF [place] CORONARY ARTERY W/O ANG PCTRS Qualifiers: (5) Hyperlipidemia Code(s): E78.5 - HYPERLIPIDEMIA, UNSPECIFIED Qualifiers: (6) Status post coronary artery bypass graft Code(s): Z95.1 - PRESENCE OF AORTOCORONARY BYPASS GRAFT (7) Sleep apnea Code(s): G47.30 - SLEEP APNEA, UNSPECIFIED (8) Diastolic dysfunction without heart failure Code(s): I51.9 - HEART DISEASE, UNSPECIFIED (9) Morbid obesity Code(s): E66.01 - MORBID (SEVERE) OBESITY DUE TO EXCESS CALORIES
[2019-02-27] MEDS ORDERED: predniSONE 20 MG TABLET (UD) PO SCH (11:00)
--- NOTE | 2019-02-27 17:23 | PN ---
Progress Note, Physician History of Present Illness: still has sob - Current Medication List Current Medications: Active Medications Albuterol Sulfate (Ventolin 0.083% Nebulizer Soln -) 1 amp NEB Q4H PRN PRN Reason: SHORT OF BREATH/WHEEZING Last Admin: 02/26/19 03:20 Dose: 1 amp Albuterol/Ipratropium (Duoneb -) 1 amp NEB RQID [facility] Last Admin: 02/27/19 11:15 Dose: 1 amp Aspirin (Ecotrin -) 81 mg PO DAILY [facility] Last Admin: 02/27/19 09:28 Dose: 81 mg Atorvastatin Calcium (Lipitor -) 20 mg PO HS [facility] Last Admin: 02/26/19 22:12 Dose: 20 mg Carvedilol (Coreg -) 25 mg PO BID [facility] Last Admin: 02/27/19 09:28 Dose: 25 mg Clopidogrel Bisulfate (Plavix -) 75 mg PO DAILY [facility] Last Admin: 02/27/19 09:28 Dose: 75 mg Furosemide (Lasix Injection -) 40 mg IVPUSH DAILY [facility] Last Admin: 02/27/19 09:28 Dose: 40 mg Isosorbide Mononitrate (Imdur -) 90 mg PO DAILY [facility] Last Admin: 02/27/19 09:28 Dose: 90 mg Methylprednisolone Sodium Succinate (Solu-Medrol -) 40 mg IVPUSH BID [facility] Stop: 02/27/19 23:00 Last Admin: 02/27/19 09:28 Dose: 40 mg Prednisone (Deltasone -) 40 mg PO DAILY [facility] Sertraline HCl (Zoloft -) 25 mg PO DAILY [facility] Last Admin: 02/27/19 09:28 Dose: 25 mg - Objective Vital Signs: Vital Signs Temperature 98.1 F 02/27/19 14:00 Pulse Rate 69 02/27/19 14:00 Respiratory Rate 20 02/27/19 09:23 Blood Pressure 117/51 L 02/27/19 14:00 O2 Sat by Pulse Oximetry (%) 99 02/27/19 09:00 HENT: Yes: Atraumatic Neck: Yes: Supple Cardiovascular: Yes: Regular Rate and Rhythm Respiratory: Yes: Rhonchi Gastrointestinal: Yes: Normal Bowel Sounds Extremities: Yes: WNL Edema: No Neurological: Yes: Alert, Oriented Labs: CBC, BMP 02/24/19 05:40 02/24/19 05:40 INR, PTT INR 1.19 (0.83-1.09) H 02/18/19 16:41 Problem List - Problems (1) BiPAP (biphasic positive airway pressure) dependence Assessment/Plan: iv steroids Code(s): Z99.89 - DEPENDENCE ON OTHER ENABLING MACHINES AND DEVICES (2) CHF exacerbation Assessment/Plan: continue home meds iv lasix Code(s): I50.9 - HEART FAILURE, UNSPECIFIED Qualifiers: Heart failure type: combined systolic and diastolic Qualified Code(s): I50.43 - Acute on chronic combined systolic (congestive) and diastolic ( congestive) heart failure (3) CAD (coronary artery disease) Code(s): I25.10 - ATHSCL HEART DISEASE OF [place] CORONARY ARTERY W/O ANG PCTRS Qualifiers: Coronary Disease-Associated Artery/Lesion type: [place] artery [place] vs. transplanted heart: [place] heart Associated angina: without angina Qualified Code(s): I25.10 - Atherosclerotic heart disease of [place] coronary artery without angina pectoris (4) HTN (hypertension) Assessment/Plan: on meds monitor Code(s): I10 - ESSENTIAL (PRIMARY) HYPERTENSION Qualifiers: Hypertension type: essential hypertension Qualified Code(s): I10 - Essential (primary) hypertension (5) Hyperlipidemia Assessment/Plan: on lipitor Code(s): E78.5 - HYPERLIPIDEMIA, UNSPECIFIED Qualifiers: Hyperlipidemia type: pure hypercholesterolemia Qualified Code(s): E78.00 - Pure hypercholesterolemia, unspecified; E78.0 - Pure hypercholesterolemia (6) Acute respiratory failure with hypoxia and hypercapnia Assessment/Plan: iv steroids bipap Code(s): J96.01 - ACUTE RESPIRATORY FAILURE WITH HYPOXIA; J96.02 - ACUTE RESPIRATORY FAILURE WITH HYPERCAPNIA (7) Morbid obesity Code(s): E66.01 - MORBID (SEVERE) OBESITY DUE TO EXCESS CALORIES (8) Sleep apnea Code(s): G47.30 - SLEEP APNEA, UNSPECIFIED Qualifiers: Sleep apnea type: obstructive Qualified Code(s): G47.33 - Obstructive sleep apnea (adult) (pediatric)
[2019-02-27] MEDS: ATORVASTATIN CA 20 MG TABLET (FP) PO SCH (22:52)
[2019-02-28] MEDS: ALBUTEROL SO4 2.5/IPRATROPIUM 0.5 INH SOL 3 ML VIAL.NEB. NEB SCH ×3 (07:30→15:10)
[2019-02-28] MEDS: FUROSEMIDE 40 MG/4 ML INJECTABLE VIAL IVPUSH SCH ×2 (08:41→09:30)
[2019-02-28] MEDS: ASPIRIN COATED 81 MG TABLET.EC PO SCH ×2 (08:45→09:30)
[2019-02-28] MEDS: ISOSORBIDE MONONITRATE 30 MG TAB.SR.24H (FP) PO SCH ×2 (08:46→09:30)
[2019-02-28] MEDS: predniSONE 20 MG TABLET (UD) PO SCH ×2 (08:46→09:30)
[2019-02-28] MEDS: CARVEDILOL 25 MG TABLET (FP) PO SCH ×2 (08:47→09:30)
[2019-02-28] MEDS: SERTRALINE HCL 25 MG TABLET (FP) PO SCH ×2 (08:48→09:30)
[2019-02-28] MEDS: CLOPIDOGREL BISULFATE 75 MG TABLET (FP) PO SCH ×2 (08:48→09:30)
--- NOTE | 2019-02-28 10:39 | PN ---
Progress Note, Physician History of Present Illness: Dyspnea and LE edema improving, no further episodes of NTG-responsive chest tightness. - Current Medication List Current Medications: Active Medications Albuterol Sulfate (Ventolin 0.083% Nebulizer Soln -) 1 amp NEB Q4H PRN PRN Reason: SHORT OF BREATH/WHEEZING Last Admin: 02/26/19 03:20 Dose: 1 amp Albuterol/Ipratropium (Duoneb -) 1 amp NEB RQID [facility] Last Admin: 02/28/19 07:30 Dose: 1 amp Aspirin (Ecotrin -) 81 mg PO DAILY [facility] Last Admin: 02/28/19 09:30 Dose: Not Given Atorvastatin Calcium (Lipitor -) 20 mg PO HS [facility] Last Admin: 02/27/19 22:52 Dose: 20 mg Carvedilol (Coreg -) 25 mg PO BID [facility] Last Admin: 02/28/19 09:30 Dose: Not Given Clopidogrel Bisulfate (Plavix -) 75 mg PO DAILY [facility] Last Admin: 02/28/19 09:30 Dose: Not Given Furosemide (Lasix Injection -) 40 mg IVPUSH DAILY [facility] Last Admin: 02/28/19 09:30 Dose: Not Given Isosorbide Mononitrate (Imdur -) 90 mg PO DAILY [facility] Last Admin: 02/28/19 09:30 Dose: Not Given Prednisone (Deltasone -) 40 mg PO DAILY [facility] Last Admin: 02/28/19 09:30 Dose: Not Given Sertraline HCl (Zoloft -) 25 mg PO DAILY [facility] Last Admin: 02/28/19 09:30 Dose: Not Given - Objective Vital Signs: Vital Signs Temperature 98.2 F 02/28/19 06:00 Pulse Rate 63 02/28/19 06:00 Respiratory Rate 20 02/28/19 06:00 Blood Pressure 131/65 02/28/19 06:00 O2 Sat by Pulse Oximetry (%) 100 02/27/19 21:00 Constitutional: Yes: No Distress, Calm Neck: Yes: Supple Cardiovascular: Yes: Regular Rate and Rhythm Respiratory: Yes: Regular, Diminished, On Nasal O2 Gastrointestinal: Yes: Normal Bowel Sounds, Soft, Abdomen, Obese Edema: Yes Edema: LLE: 1+, RLE: 1+ Labs: CBC, BMP 02/24/19 05:40 02/24/19 05:40 INR, PTT INR 1.19 (0.83-1.09) H 02/18/19 16:41 - ....Imaging EKG: Report Reviewed (Tele: NSR) Problem List - Problems (1) Acute respiratory failure with hypoxia and hypercapnia Code(s): J96.01 - ACUTE RESPIRATORY FAILURE WITH HYPOXIA; J96.02 - ACUTE RESPIRATORY FAILURE WITH HYPERCAPNIA (2) CHF exacerbation Code(s): I50.9 - HEART FAILURE, UNSPECIFIED Qualifiers: Heart failure type: combined systolic and diastolic Qualified Code(s): I50.43 - Acute on chronic combined systolic (congestive) and diastolic ( congestive) heart failure (3) Shortness of breath Code(s): R06.02 - SHORTNESS OF BREATH (4) Sleep apnea Code(s): G47.30 - SLEEP APNEA, UNSPECIFIED Qualifiers: Sleep apnea type: obstructive Qualified Code(s): G47.33 - Obstructive sleep apnea (adult) (pediatric) (5) CAD (coronary artery disease) Code(s): I25.10 - ATHSCL HEART DISEASE OF [place] CORONARY ARTERY W/O ANG PCTRS Qualifiers: Coronary Disease-Associated Artery/Lesion type: [place] artery [place] vs. transplanted heart: [place] heart Associated angina: without angina Qualified Code(s): I25.10 - Atherosclerotic heart disease of [place] coronary artery without angina pectoris (6) HTN (hypertension) Code(s): I10 - ESSENTIAL (PRIMARY) HYPERTENSION Qualifiers: Hypertension type: essential hypertension Qualified Code(s): I10 - Essential (primary) hypertension (7) Hyperlipidemia Code(s): E78.5 - HYPERLIPIDEMIA, UNSPECIFIED Qualifiers: Hyperlipidemia type: pure hypercholesterolemia Qualified Code(s): E78.00 - Pure hypercholesterolemia, unspecified; E78.0 - Pure hypercholesterolemia (8) Status post coronary artery bypass graft Code(s): Z95.1 - PRESENCE OF AORTOCORONARY BYPASS GRAFT (9) Status post coronary artery stent placement Code(s): Z95.5 - PRESENCE OF CORONARY ANGIOPLASTY IMPLANT AND GRAFT Assessment/Plan 02/20/2019 Echo: Mod dilated LV with mild-mod decreased LV fxn, mild MR, tr- mild TR 02/19/2019 Mild centrilobular emphysema Echocardiography performed January 10, 2019 revealed mild to moderate reduction in left ventricular systolic function with estimated LVEF between 40-45%, mild left atrial dilatation, poorly visualize right ventricle but grossly normal in size, mild thickening of the mitral valve leaflets with trace mitral valve regurgitation Left heart cardiac catheterization coronary angiography January 09, 2019 revealed triple vessel obstructive coronary artery disease, left main distal 30% diameter stenosis, mid LAD 100% diameter stenosis, proximal LCx 60% diameter stenosis, LCx OM 100% diameter stenosis (post intervention), proximal RCA 100% diameter stenosis, patent DRIVER to mid LAD, SVG to RPDA distal SVG anastomotic stenosis Pharmacologic myocardial perfusion imaging study performed November 27, 2018 revealed large size infero-lateral and hien-lateral wall defect compatible with ischemia with zone of infarct moderate size hien-apical wall defect compatible with ischemia, calculated LV EF of 54% overestimated 1. Acute on chronic class I-II [employer] Heart [employer] classification left ventricular failure related to systolic/diastolic left ventricular dysfunction 2. Coronary artery disease post myocardial infarction post coronary artery bypass grafting post multi-vessel percutaneous coronary intervention/stenting residual disease angina pectoris 3. Hypertensive cardiovascular disease 4. Hypercholesterolemia 5. Acute kidney injury 6. Anemia 7. COPD 8. OSAS on cpap PLAN: 1. Continue Coreg 25 mg bid, ASA 81 qd, Lipitor 20 qhs, Plavix 75 qd, Imdur 90 qd 2. Start losartan 25 qd as renal function stabilized to baseline and hyperkalemia has corrected 3. Oral diuresis with monitor diuretic response, renal fxn and electrolytes 4. BD, O2, oral steroid taper, bipap nightly and as needed, PT as tolerated 5. Patient was strongly counseled dietary compliance including caloric restriction- weight reduction 6. October d/c from CV-standpoint with f/u with Dr. Arash Hanson at [facility] for [facility] PCI once stable 7. DVT prophylaxis
--- NOTE | 2019-02-28 10:51 | PN ---
Progress Note, Physician History of Present Illness: PULMONARY ALERT,OOB-CHAIR,FEELING BETTER,SOB IMPROVING,-CP - Current Medication List Current Medications: Active Medications Albuterol Sulfate (Ventolin 0.083% Nebulizer Soln -) 1 amp NEB Q4H PRN PRN Reason: SHORT OF BREATH/WHEEZING Last Admin: 02/26/19 03:20 Dose: 1 amp Albuterol/Ipratropium (Duoneb -) 1 amp NEB RQID [facility] Last Admin: 02/28/19 07:30 Dose: 1 amp Aspirin (Ecotrin -) 81 mg PO DAILY [facility] Last Admin: 02/28/19 09:30 Dose: Not Given Atorvastatin Calcium (Lipitor -) 20 mg PO HS [facility] Last Admin: 02/27/19 22:52 Dose: 20 mg Carvedilol (Coreg -) 25 mg PO BID [facility] Last Admin: 02/28/19 09:30 Dose: Not Given Clopidogrel Bisulfate (Plavix -) 75 mg PO DAILY [facility] Last Admin: 02/28/19 09:30 Dose: Not Given Furosemide (Lasix Injection -) 40 mg IVPUSH DAILY [facility] Last Admin: 02/28/19 09:30 Dose: Not Given Isosorbide Mononitrate (Imdur -) 90 mg PO DAILY [facility] Last Admin: 02/28/19 09:30 Dose: Not Given Prednisone (Deltasone -) 40 mg PO DAILY [facility] Last Admin: 02/28/19 09:30 Dose: Not Given Sertraline HCl (Zoloft -) 25 mg PO DAILY [facility] Last Admin: 02/28/19 09:30 Dose: Not Given - Objective Vital Signs: Vital Signs Temperature 98.2 F 02/28/19 06:00 Pulse Rate 63 02/28/19 06:00 Respiratory Rate 20 02/28/19 06:00 Blood Pressure 131/65 02/28/19 06:00 O2 Sat by Pulse Oximetry (%) 100 02/27/19 21:00 Constitutional: Yes: Calm, Obese Eyes: Yes: WNL HENT: Yes: WNL Neck: Yes: WNL Cardiovascular: Yes: Pulse Irregular, S1, S2 Respiratory: Yes: Diminished Gastrointestinal: Yes: Normal Bowel Sounds, Soft Extremities: Yes: WNL Edema: Yes Labs: CBC, BMP Problem List - Problems (1) Acute respiratory failure with hypoxia and hypercapnia Code(s): J96.01 - ACUTE RESPIRATORY FAILURE WITH HYPOXIA; J96.02 - ACUTE RESPIRATORY FAILURE WITH HYPERCAPNIA (2) CHF exacerbation Code(s): I50.9 - HEART FAILURE, UNSPECIFIED Qualifiers: Heart failure type: combined systolic and diastolic Qualified Code(s): I50.43 - Acute on chronic combined systolic (congestive) and diastolic ( congestive) heart failure (3) Shortness of breath Code(s): R06.02 - SHORTNESS OF BREATH (4) CAD (coronary artery disease) Code(s): I25.10 - ATHSCL HEART DISEASE OF [place] CORONARY ARTERY W/O ANG PCTRS Qualifiers: Coronary Disease-Associated Artery/Lesion type: [place] artery [place] vs. transplanted heart: [place] heart Associated angina: without angina Qualified Code(s): I25.10 - Atherosclerotic heart disease of [place] coronary artery without angina pectoris (5) Hyperlipidemia Code(s): E78.5 - HYPERLIPIDEMIA, UNSPECIFIED Qualifiers: Hyperlipidemia type: pure hypercholesterolemia Qualified Code(s): E78.00 - Pure hypercholesterolemia, unspecified; E78.0 - Pure hypercholesterolemia (6) Status post coronary artery bypass graft Code(s): Z95.1 - PRESENCE OF AORTOCORONARY BYPASS GRAFT (7) Sleep apnea Code(s): G47.30 - SLEEP APNEA, UNSPECIFIED Qualifiers: Sleep apnea type: obstructive Qualified Code(s): G47.33 - Obstructive sleep apnea (adult) (pediatric) (8) Diastolic dysfunction without heart failure Code(s): I51.9 - HEART DISEASE, UNSPECIFIED (9) Morbid obesity Code(s): E66.01 - MORBID (SEVERE) OBESITY DUE TO EXCESS CALORIES Assessment/Plan IMP ACUTE HYPOXEMIC/LIKELY CHRONIC HYPERCAPNEIC RESPIRATORY FAILURE ACUTE ON CHRONIC CHF improving CHEST PAIN COPD ASHD S/P CABG 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 H/O LIVER TRANSPLANT CHRONIC HEP C ANEMIA MORBID OBESITY PLAN LASIX SUPPLEMENTAL O2 INHALED BRONCHODILATORS PREDNISONE BIPAP AT NIGHT AND PRN DAILY WTS AMBULATORY O2 SAT PRIOR TO DISCHARGE TO DETERMINE IF PT IS A CANDIDATE FOR HOME O2 YEARLY LOW DOSE CHEST CT FOR LUNG CANCER SCREENING MONITOR LYTES,H+H PT CONSIDER SHORT TERM PULMONARY REHAB POST DISCHARGE WT REDUCTION DR CRUMP Problem List - Problems (1) Acute respiratory failure with hypoxia and hypercapnia Code(s): J96.01 - ACUTE RESPIRATORY FAILURE WITH HYPOXIA; J96.02 - ACUTE RESPIRATORY FAILURE WITH HYPERCAPNIA (2) CHF exacerbation Code(s): I50.9 - HEART FAILURE, UNSPECIFIED (3) Shortness of breath Code(s): R06.02 - SHORTNESS OF BREATH (4) CAD (coronary artery disease) Code(s): I25.10 - ATHSCL HEART DISEASE OF [place] CORONARY ARTERY W/O ANG PCTRS Qualifiers: (5) Hyperlipidemia Code(s): E78.5 - HYPERLIPIDEMIA, UNSPECIFIED Qualifiers: (6) Status post coronary artery bypass graft Code(s): Z95.1 - PRESENCE OF AORTOCORONARY BYPASS GRAFT (7) Sleep apnea Code(s): G47.30 - SLEEP APNEA, UNSPECIFIED (8) Diastolic dysfunction without heart failure Code(s): I51.9 - HEART DISEASE, UNSPECIFIED (9) Morbid obesity Code(s): E66.01 - MORBID (SEVERE) OBESITY DUE TO EXCESS CALORIES
[2019-02-28] MEDS ORDERED: LOSARTAN POTASSIUM 25 MG TABLET PO SCH (12:00)
--- NOTE | 2019-02-28 13:10 | DS ---
Physical Examination Vital Signs: Vital Signs Temperature 98.2 F 02/28/19 06:00 Pulse Rate 84 02/28/19 11:55 Respiratory Rate 20 02/28/19 06:00 Blood Pressure 131/65 02/28/19 06:00 O2 Sat by Pulse Oximetry (%) 91 L 02/28/19 11:55 Constitutional: Yes: No Distress HENT: Yes: Atraumatic Neck: Yes: Supple Cardiovascular: Yes: Regular Rate and Rhythm Respiratory: Yes: Rhonchi Gastrointestinal: Yes: Normal Bowel Sounds Extremities: Yes: WNL Neurological: Yes: Alert, Oriented Labs: CBC, BMP 02/24/19 05:40 02/24/19 05:40 Discharge Summary Reason For Visit: BILEVEL POSITIVE AIRWAY PRESSURE DEPENDANCE, ACUTE Current Active Problems Acute respiratory failure with hypoxia and hypercapnia (Acute) BiPAP (biphasic positive airway pressure) dependence (Acute) CHF exacerbation (Acute) First degree AV block (Acute) Morbid obesity (Acute) Shortness of breath (Acute) Sinus bradycardia (Acute) Sleep apnea (Acute) Condition: Stable - Instructions Disposition: ASSISTED FACILITY - Home Medications Comprehensive Discharge Medication List: Ambulatory Orders Aspirin [Aspirin EC] 81 mg PO DAILY 02/18/19 Sertraline HCl 25 mg PO DAILY 02/18/19 Albuterol 2.5/Ipratropium 0.5 [Duoneb -] 1 amp NEB RQID amp 02/28/19 Atorvastatin Ca [Lipitor] 20 mg PO HS #30 tablet 02/28/19 Carvedilol [Coreg -] 25 mg PO BID #60 tablet 02/28/19 Clopidogrel Bisulfate [Plavix -] 75 mg PO DAILY #30 tablet 02/28/19 Furosemide [Lasix -] 40 mg PO DAILY #30 tablet 02/28/19 Isosorbide Mononitrate [Imdur -] 90 mg PO DAILY #90 tab.sr.24h 02/28/19 Losartan Potassium [Cozaar -] 25 mg PO DAILY #30 tablet 02/28/19 predniSONE [Deltasone -] 40 mg PO DAILY #30 tablet 02/28/19 [facility]
[2019-02-28 15:50] VITALS: BP 132/69; PULSE 68; TEMP 97.8
[2019-03-01] MEDS ORDERED: FUROSEMIDE 40 MG TABLET (FP) PO SCH (10:00)
== END 2019-02-28 17:15 | DRG 291 ==
LOC: JER 16:39 → JERBED 18:29 → J4W 22:26
PROVIDERS: ADMIT Internal Medicine; ATTEND Internal Medicine
PROC: 5A09557 Assistance with Respiratory Ventilation, Greater than 96 Consecutive Hours, Continuous Positive Airway Pressure (ICD-10-PCS; principal; 2019-02-18)
DX: I13.0 Hypertensive heart and chronic kidney disease with heart failure and stage 1 through stage 4 chronic kidney disease, or unspecified chronic kidney disease (principal); J96.01 Acute respiratory failure with hypoxia; J96.02 Acute respiratory failure with hypercapnia; I50.43 Acute on chronic combined systolic (congestive) and diastolic (congestive) heart failure; B18.1 Chronic viral hepatitis B without delta-agent; Z68.42 Body mass index [BMI] 45.0-49.9, adult; N17.9 Acute kidney failure, unspecified; Z94.0 Kidney transplant status; E66.01 Morbid (severe) obesity due to excess calories; I25.2 Old myocardial infarction; N18.9 Chronic kidney disease, unspecified; J43.9 Emphysema, unspecified; I44.30 Unspecified atrioventricular block; I45.10 Unspecified right bundle-branch block; I25.10 Atherosclerotic heart disease of native coronary artery without angina pectoris; Z95.1 Presence of aortocoronary bypass graft; K57.30 Diverticulosis of large intestine without perforation or abscess without bleeding; E78.5 Hyperlipidemia, unspecified; Z87.891 Personal history of nicotine dependence; D53.9 Nutritional anemia, unspecified; G47.33 Obstructive sleep apnea (adult) (pediatric); R07.9 Chest pain, unspecified; E87.5 Hyperkalemia
CPT/HCPCS: 36415; 36600; 71045-TC-FY; 71250-TC; 80048; 80053; 82375; 82550; 82803; 83050; 83605; 83735; 83880; 84100; 84484; 85025; 85610; 85730; 87040; 93005; 93010; 93306-TC; 94640; 94660; 94761; 97116-GP; 97162-GP; 97163-GP; 99285-25; J0131; J1644